=== PATIENT | female | born 1935 | race Caucasian/White ===

== ENCOUNTER 2016-03-01 14:37 | Emergency (ER) | payer MEDICARE ==
[~2016-03-01] VITALS: Ht 172.7 cm; Wt 102.1 kg
[2016-03-01 15:35] LABS: BASO % 0 % (0-3); EOS % 1 % (0-3); HEMOGLOBIN 16.5 g/dL (12.0-15.5); LYMPH # 1.6 x10^3/uL (1.0-4.8); LYMPH % 16 % (24-48); MEAN CORPUSCULAR HEMOGLOBIN 30 pg (25-35); MEAN CORPUSCULAR HGB CONC 33 g/dL (31-37); MEAN CORPUSCULAR VOLUME 91 fL (79-100); MONO % 7 % (0-9); NEUT % 76 % (31-73); PLATELET COUNT 214 x10^3/uL (140-400); RED CELL DISTRIBUTION WIDTH 14.7 % (11.5-14.5)
--- NOTE | 2016-03-01 15:36 | PHYS DOC ---
Adult General Chief Complaint Chief Complaint: BLOOD IN URINE HPI HPI This is a 80-year-old female with significant history of diabetes only presenting with approximately 1 week of intermittent left flank pain as well as intermittent gross hematuria. She denies any trauma to the flank area. She denies any dysuria with her symptoms. She states only movement brings her left flank pain on reach does not have any pain at rest. Currently at rest, she states she has no pain. She denies any history of renal disease. Patient states she did not see any blood in her urine today but has had multiple episodes within the last week and was worried because her left flank pain had worsened today. Review of Systems Review of Systems Constitutional: Denies fever or chills [] Eyes: Denies change in visual acuity, redness, or eye pain [] HENT: Denies nasal congestion or sore throat [] Respiratory: Denies cough or shortness of breath [] Cardiovascular: No additional information not addressed in HPI [] GI: Denies abdominal pain, nausea, vomiting, bloody stools or diarrhea [] : Denies dysuria, has hematuria [] Musculoskeletal: Has back pain, denies joint pain [] Integument: Denies rash or skin lesions [] Neurologic: Denies headache, focal weakness or sensory changes [] Endocrine: Denies polyuria or polydipsia [] Current Medications Current Medications Current Medications Medications (Trade) Dose Ordered Sig/Glenn Start Time Stop Time Status Last Admin Dose Admin Ceftriaxone Sodium (Rocephin 1gm Ivpb For Omni) 50 ml @ 100 mls/hr 1X ONCE 03/01/16 16:30 03/01/16 16:59 DC 03/01/16 16:28 100 MLS/HR Allergies Allergies Allergies Coded Allergies Type Severity Reaction Last Updated Verified No Known Drug Allergies 03/01/16 No Physical Exam Physical Exam Constitutional: Well developed, well nourished, no acute distress, non-toxic appearance. [] HENT: Normocephalic, atraumatic, bilateral external ears normal, oropharynx moist, no oral exudates, nose normal. [] Eyes: PERRLA, EOMI, conjunctiva normal, no discharge. [] Neck: Normal range of motion, no tenderness, supple, no stridor. [] Cardiovascular:Heart rate regular rhythm, no murmur [] Lungs & Thorax: Bilateral breath sounds clear to auscultation [] Abdomen: Bowel sounds normal, soft, no tenderness, no masses, no pulsatile masses. [] Skin: Warm, dry, no erythema, no rash. [] Back: No tenderness, no CVA tenderness. [] Extremities: No tenderness, no cyanosis, no clubbing, ROM intact, no edema. [] Neurologic: Alert and oriented X 3, normal motor function, normal sensory function, no focal deficits noted. [] Psychologic: Affect normal, judgement normal, mood normal. [] Current Patient Data Vital Signs Vital Signs Date Time Temp Pulse Resp B/P Pulse Ox O2 Delivery O2 Flow Rate FiO2 03/01/16 17:44 78 210/90 95 Room Air 03/01/16 15:05 98.2 20 98.2 Lab Values Laboratory Tests Test 03/01/16 15:10 03/01/16 16:42 03/01/16 17:10 03/01/16 17:20 White Blood Count 10.0x10^3/uL (4.0-11.0) Red Blood Count 5.50x10^6/uL (3.50-5.40) H Hemoglobin 16.5g/dL (12.0-15.5) H Hematocrit 50.0% (36.0-47.0) H Mean Corpuscular Volume 91fL (79-100) Mean Corpuscular Hemoglobin 30pg (25-35) Mean Corpuscular Hemoglobin Concent 33g/dL (31-37) Red Cell Distribution Width 14.7% (11.5-14.5) H Platelet Count 214x10^3/uL (140-400) Neutrophils (%) (Auto) 76% (31-73) H Lymphocytes (%) (Auto) 16% (24-48) L Monocytes (%) (Auto) 7% (0-9) Eosinophils (%) (Auto) 1% (0-3) Basophils (%) (Auto) 0% (0-3) Neutrophils # (Auto) 7.5x10^3uL (1.8-7.7) Lymphocytes # (Auto) 1.6x10^3/uL (1.0-4.8) Monocytes # (Auto) 0.7x10^3/uL (0.0-1.1) Eosinophils # (Auto) 0.1x10^3/uL (0.0-0.7) Basophils # (Auto) 0.0x10^3/uL (0.0-0.2) Glucose (Fingerstick) 93mg/dL (70-99) Urine Color Yellow Urine Clarity Clear Urine pH 6.0 Urine Specific [place] 1.020 Urine Protein Negativemg/dL (NEG-TRACE) Urine Glucose (UA) Negativemg/dL (NEG) Urine Ketones (Stick) Negativemg/dL (NEG) Urine Blood Trace (NEG) Urine Nitrite Positive (NEG) Urine Bilirubin Negative (NEG) Urine Urobilinogen Dipstick 0.2mg/dL (0.2 mg/dL) Urine Leukocyte Esterase Small (NEG) Urine RBC Occ/HPF (0-2) Urine WBC 5-10/HPF (0-4) Urine Squamous Epithelial Cells Occ/LPF Urine Bacteria Many/HPF (0-FEW) Urine Mucus Mod/LPF Sodium Level 142mmol/L (136-145) Potassium Level 4.0mmol/L (3.5-5.1) Chloride Level 105mmol/L (98-107) Carbon Dioxide Level 30mmol/L (21-32) Anion Gap 7 (6-14) Blood Urea Nitrogen 27mg/dL (7-20) H Creatinine 0.8mg/dL (0.6-1.0) Estimated GFR (Cockcroft-Gault) 69.2 Glucose Level 81mg/dL (70-99) Calcium Level 9.2mg/dL (8.5-10.1) Laboratory Tests 03/01/16 15:10 Laboratory Tests 03/01/16 17:20 EKG EKG [] Radiology/Procedures Radiology/Procedures CT of the abdomen/pelvis without contrast demonstrated the following: Noncontrast scans were obtained through the urinary tract utilizing the renal stone protocol. This is a limited study for evaluation of the possibility of urinary tract calculi. There is patient motion artifact on the scans through the kidneys degrading image quality. There is bilateral renal cortical scarring. There are are mild streaky perinephric densities compatible with inflammation and/or scarring. No renal calculi are identified. The renal collecting systems and ureters are not dilated. No ureteral calculus is evident. No bladder abnormality is detected. There is moderate linear atelectasis and/or scarring in the lung bases. Coronary artery calcifications are evident. The unopacified liver is unremarkable. Radiopaque gallstones are present. The pancreas is unremarkable. Numerous calcified splenic granulomata are present. The spleen is of normal size. Aortoiliac calcific plaquing is present without evidence of aneurysm. No abdominal or pelvic adenopathy is seen. The bowel loops are not dilated. No free fluid or free air is evident in the abdomen or pelvis. Moderate multilevel degenerative changes are present in the spine. Course & Med Decision Making Course & Med Decision Making Pertinent Labs and Imaging studies reviewed. (See chart for details) This 80-year-old female with mild left flank pain and multiple episodes of hematuria will obtain urinalysis and blood work to rule out any infection or other source of her hematuria and flank pain. I will check her renal function. I 'll also obtain a noncontrast CT of her abdomen and pelvis to rule out any acute kidney pathology. The likely differential is infection versus stone although I believe stone is much less likely due to the fact that her pain is well-controlled at rest her symptoms. Her symptoms are likely related to a pyelonephritis for which she will be treated with antibiotics and close follow- up with her primary doctor if that is the case. CT of her abdomen and pelvis without IV contrast demonstrated bilateral perinephric stranding which is likely related to her symptoms. I would like to preempt probably treat the patient as having pyelonephritis. A dose of IV Rocephin was administered in the department. I will be discharging the patient with a course of Levaquin for the next 5 days. I counseled her that she is to be followed in the next several days with her primary doctor and to return to the ER if she develops any worsening pain, nausea, vomiting, fever. At this time she has no fever or elevated white count. Her pain was easily controlled. Her renal function is normal. I do not see an indication to hospitalize her for this and believe she will be safe to try a course of oral antibiotics for her symptoms. She was discharged without incident. Dragon Disclaimer Dragon Disclaimer This electronic medical record was generated, in whole or in part, using a voice recognition dictation system. Departure Departure Impression: Primary Impression: Pyelonephritis Additional Impression: UTI (urinary tract infection) Disposition: 01 HOME, SELF-CARE Condition: STABLE Referrals: NICHOLE TORRES MD (PCP) Patient Instructions: Pyelonephritis, Adult, [id number] Additional Instructions: Please follow up with your primary doctor in the next 2-3 days for your ongoing infection. Take your antibiotic as prescribed. Return to the ER if you are unable to tolerate your medication or develop any new symptoms such as worsening pain or fever. Scripts Levofloxacin (Levaquin)750 Mg Tablet1 Tab PO DAILY #5 TAB Prov:CAPO DC DO 03/01/16 Problem Qualifiers CAPO DC DO Mar 01, 2016 15:36
--- NOTE | 2016-03-01 16:06 | RAD ---
CT of the abdomen and pelvis without contrast, 03/01/2016: History: Worsening left flank pain, gross hematuria Noncontrast scans were obtained through the urinary tract utilizing the renal stone protocol. This is a limited study for evaluation of the possibility of urinary tract calculi. There is patient motion artifact on the scans through the kidneys degrading image quality. There is bilateral renal cortical scarring. There are are mild streaky perinephric densities compatible with inflammation and/or scarring. No renal calculi are identified. The renal collecting systems and ureters are not dilated. No ureteral calculus is evident. No bladder abnormality is detected. There is moderate linear atelectasis and/or scarring in the lung bases. Coronary artery calcifications are evident. The unopacified liver is unremarkable. Radiopaque gallstones are present. The pancreas is unremarkable. Numerous calcified splenic granulomata are present. The spleen is of normal size. Aortoiliac calcific plaquing is present without evidence of aneurysm. No abdominal or pelvic adenopathy is seen. The bowel loops are not dilated. No free fluid or free air is evident in the abdomen or pelvis. Moderate multilevel degenerative changes are present in the spine. IMPRESSION: 1. No urinary tract calculi are identified. 2. Mild bilateral perinephric inflammation and/or scarring. 3. Cholelithiasis PQRS Compliance Statement: One or more of the following individualized dose reduction techniques were utilized for this examination: 1. Automated exposure control 2. Adjustment of the mA and/or kV according to patient size 3. Use of iterative reconstruction technique
[2016-03-01] MEDS ORDERED: CEFTRIAXONE 1GM IVPB FOR OMNI 50 ML IV ONE (16:30)
[2016-03-01 17:25] LABS: BILIRUBIN,URINE NEGATIVE (NEG); GLUCOSE,URINE NEGATIVE (NEG); NITRITE,URINE POSITIVE (NEG); PROTEIN,URINE NEGATIVE (NEG-TRACE); UROBILINOGEN,URINE 0.2 mg/dL (0.2 mg/dL)
[2016-03-01 17:40] LABS: CALCIUM 9.2 mg/dL (8.5-10.1); CREATININE 0.8 mg/dL (0.6-1.0); GFR 69.2
[2016-03-01 17:44] VITALS: BP 210/90
[2016-03-01 18:00] LABS: BACTERIA,URINE MANY /HPF (0-FEW); RBC,URINE OCC /HPF (0-2); SQUAMOUS EPITHELIAL CELL,UR OCC /LPF
[2016-03-01] MEDS ORDERED: LEVO750T31 PO (18:12)
== END 2016-03-01 18:24 | disposition home or self-care (01) ==
LOC: ER 14:37
DX: N12 Tubulo-interstitial nephritis, not specified as acute or chronic (principal); N39.0 Urinary tract infection, site not specified; E11.9 Type 2 diabetes mellitus without complications
CPT/HCPCS: 36415; 74176; 80048; 81001; 82947; 85027; 96365; 99285; J0690; 87086

== ENCOUNTER 2016-03-20 12:40 | Emergency (ER) | payer MEDICARE ==
[~2016-03-20] VITALS: Ht 172.7 cm; Wt 113.4 kg
[~2016-03-20 12:40] MED LIST: INSU100V13 SQ; LEVO750T31 PO
[2016-03-20 13:47] VITALS: BP 181/82
[2016-03-20 14:16] LABS: BASO # 0.1 x10^3/uL (0.0-0.2); BASO % 1 % (0-3); EOS % 1 % (0-3); HEMATOCRIT 49.7 % (36.0-47.0); HEMOGLOBIN 16.4 g/dL (12.0-15.5); LYMPH # 1.5 x10^3/uL (1.0-4.8); LYMPH % 14 % (24-48); MEAN CORPUSCULAR HEMOGLOBIN 30 pg (25-35); MEAN CORPUSCULAR HGB CONC 33 g/dL (31-37); MEAN CORPUSCULAR VOLUME 90 fL (79-100); MONO % 8 % (0-9); NEUT % 76 % (31-73); PLATELET COUNT 201 x10^3/uL (140-400); RED BLOOD COUNT 5.52 x10^6/uL (3.50-5.40); RED CELL DISTRIBUTION WIDTH 14.6 % (11.5-14.5); WHITE BLOOD COUNT 10.1 x10^3/uL (4.0-11.0)
[2016-03-20 14:36] LABS: CALCIUM 9.4 mg/dL (8.5-10.1); CREATININE 0.7 mg/dL (0.6-1.0); GFR 80.7; POTASSIUM 3.9 mmol/L (3.5-5.1)
[2016-03-20 14:42] LABS: ALBUMIN 3.1 g/dL (3.4-5.0); DIRECT BILIRUBIN 0.1 mg/dL (0.0-0.2); TOTAL BILIRUBIN 0.7 mg/dL (0.2-1.0); TOTAL PROTEIN 7.9 g/dL (6.4-8.2)
[2016-03-20 14:53] LABS: BILIRUBIN,URINE NEGATIVE (NEG); GLUCOSE,URINE 100 mg/dL (NEG); NITRITE,URINE NEGATIVE (NEG); PH,URINE 5.5; PROTEIN,URINE 30 mg/dL (NEG-TRACE); UROBILINOGEN,URINE 0.2 mg/dL (0.2 mg/dL)
[2016-03-20 15:19] LABS: BACTERIA,URINE FEW /HPF (0-FEW); SQUAMOUS EPITHELIAL CELL,UR FEW /LPF; WBC,URINE >40 /HPF (0-4)
--- NOTE | 2016-03-20 15:29 | PHYS DOC ---
Past Medical History Past Medical History: Diabetes-Type I, Hypertension, Other Additional Past Medical Histor: kidney infection Past Surgical History: , Hysterectomy, Other Additional Past Surgical Histo: "KNOT IN MY INTESTINE REMOVED" Alcohol Use: None Drug Use: None Adult General Chief Complaint Chief Complaint: ABDOMINAL PAIN HPI HPI Patient is a 80 year old female recently seen and treated for urinary tract infection and left flank pain who presents for urinary frequency and return of left flank pain. She is concerned she has urinary tract infection again. States her pain is in her left low back and intermittently radiates through her lateral left leg when she twists or moves. Pain is achy, intermittent. She denies mid or upper back pain. She denies injury, saddle anesthesia, bowel or bladder dysfunction, numbness, tingling, weakness. She denies fever or chills, nausea or vomiting, abdominal pain, diarrhea, constipation. Review of Systems Review of Systems Constitutional: Denies fever or chills [] Eyes: Denies change in visual acuity, redness, or eye pain [] HENT: Denies nasal congestion or sore throat [] Respiratory: Denies cough or shortness of breath [] Cardiovascular: No additional information not addressed in HPI [] GI: Denies abdominal pain, nausea, vomiting, bloody stools or diarrhea [] : Denies hematuria [] Musculoskeletal: Denies joint pain [] Integument: Denies rash or skin lesions [] Neurologic: Denies headache, focal weakness or sensory changes [] Endocrine: Denies polyuria or polydipsia [] Allergies Allergies Allergies Coded Allergies Type Severity Reaction Last Updated Verified No Known Drug Allergies 03/01/16 No Physical Exam Physical Exam Constitutional: Well developed, well nourished, no acute distress, non-toxic appearance. [] HENT: Normocephalic, atraumatic, bilateral external ears normal, oropharynx moist, nose normal. [] Eyes: PERRLA, EOMI. [] Neck: Normal range of motion, supple. [] Cardiovascular:Heart rate regular rhythm [] Lungs & Thorax: Bilateral breath sounds clear to auscultation [] Abdomen: Bowel sounds normal, soft, no tenderness. [] Skin: Warm, dry, no erythema, no rash. [] Back: No midline spinal tenderness, no CVA tenderness. Has mild right lumbar paraspinal tenderness with no visual or palpable abnormality. Negative straight leg raise [] Extremities: No tenderness, ROM intact, no edema, ambulatory with a steady gait. [] Neurologic: Alert and oriented X 3, normal motor function, normal sensory function, no focal deficits noted. [] Psychologic: Affect normal, judgement normal, mood normal. [] Current Patient Data Vital Signs Vital Signs Date Time Temp Pulse Resp B/P Pulse Ox O2 Delivery O2 Flow Rate FiO2 03/20/16 13:47 88 20 181/82 96 03/20/16 13:27 98.1 Room Air 98.1 Lab Values Laboratory Tests Test 03/20/16 13:40 03/20/16 14:38 White Blood Count 10.1x10^3/uL (4.0-11.0) Red Blood Count 5.52x10^6/uL (3.50-5.40) H Hemoglobin 16.4g/dL (12.0-15.5) H Hematocrit 49.7% (36.0-47.0) H Mean Corpuscular Volume 90fL (79-100) Mean Corpuscular Hemoglobin 30pg (25-35) Mean Corpuscular Hemoglobin Concent 33g/dL (31-37) Red Cell Distribution Width 14.6% (11.5-14.5) H Platelet Count 201x10^3/uL (140-400) Neutrophils (%) (Auto) 76% (31-73) H Lymphocytes (%) (Auto) 14% (24-48) L Monocytes (%) (Auto) 8% (0-9) Eosinophils (%) (Auto) 1% (0-3) Basophils (%) (Auto) 1% (0-3) Neutrophils # (Auto) 7.7x10^3uL (1.8-7.7) Lymphocytes # (Auto) 1.5x10^3/uL (1.0-4.8) Monocytes # (Auto) 0.8x10^3/uL (0.0-1.1) Eosinophils # (Auto) 0.1x10^3/uL (0.0-0.7) Basophils # (Auto) 0.1x10^3/uL (0.0-0.2) Sodium Level 144mmol/L (136-145) Potassium Level 3.9mmol/L (3.5-5.1) Chloride Level 104mmol/L (98-107) Carbon Dioxide Level 29mmol/L (21-32) Anion Gap 11 (6-14) Blood Urea Nitrogen 26mg/dL (7-20) H Creatinine 0.7mg/dL (0.6-1.0) Estimated GFR (Cockcroft-Gault) 80.7 Glucose Level 134mg/dL (70-99) H Calcium Level 9.4mg/dL (8.5-10.1) Total Bilirubin 0.7mg/dL (0.2-1.0) Direct Bilirubin 0.1mg/dL (0.0-0.2) Aspartate Amino Transferase (AST) 13U/L (15-37) L Alanine Aminotransferase (ALT) 15U/L (14-59) Alkaline Phosphatase 110U/L (46-116) Total Protein 7.9g/dL (6.4-8.2) Albumin 3.1g/dL (3.4-5.0) L Lipase 82U/L (73-393) Urine Collection Type Unknown Urine Color Dk yellow Urine Clarity Clear Urine pH 5.5 Urine Specific [place] 1.025 Urine Protein 30mg/dL (NEG-TRACE) Urine Glucose (UA) 100mg/dL (NEG) Urine Ketones (Stick) Negativemg/dL (NEG) Urine Blood Large (NEG) Urine Nitrite Negative (NEG) Urine Bilirubin Negative (NEG) Urine Urobilinogen Dipstick 0.2mg/dL (0.2 mg/dL) Urine Leukocyte Esterase Large (NEG) Urine RBC 6-10/HPF (0-2) Urine WBC >40/HPF (0-4) Urine Squamous Epithelial Cells Few/LPF Urine Bacteria Few/HPF (0-FEW) Urine Mucus Marked/LPF Laboratory Tests 03/20/16 13:40 Laboratory Tests 03/20/16 13:40 Course & Med Decision Making Course & Med Decision Making Pertinent Labs and Imaging studies reviewed. (See chart for details) Workup is remarkable for cystitis with hematuria. Discussed my concern of musculoskeletal low back pain as cause of other symptoms. Encouraged her to follow-up with her primary care doctor for further testing and urology clinic for recurrent cystitis with hematuria. Return precautions given. She and understand and agree with plan. Dragon Disclaimer Dragon Disclaimer This electronic medical record was generated, in whole or in part, using a voice recognition dictation system. Departure Departure Impression: Primary Impression: UTI (urinary tract infection) Disposition: 01 HOME, SELF-CARE Condition: STABLE Referrals: NICHOLE TORRES MD (PCP) RAPHAEL GARCIA DO Patient Instructions: Urinary Tract Infection, [id number] Additional Instructions: Take Bactrim for urinary tract infection. Follow-up with your primary care doctor within one week. Follow-up with urology clinic also. Please call for appointment. Return for any concerns. Scripts Sulfamethoxazole/Trimethoprim (Bactrim Ds Tablet)1 Each Tablet1 Tab PO BID #14 TAB Prov:Radha MCKEE MD 03/20/16 Problem Qualifiers Primary Impression: UTI (urinary tract infection) Urinary tract infection type: acute cystitis Hematuria presence: with hematuria Qualified Code: N30.01 - Acute cystitis with hematuria Radha MCKEE MD Mar 20, 2016 15:29
[2016-03-20] MEDS ORDERED: SULF1TAB24 PO (15:38)
== END 2016-03-20 15:45 | disposition home or self-care (01) ==
LOC: ER 12:40
DX: N30.01 Acute cystitis with hematuria (principal); E10.9 Type 1 diabetes mellitus without complications; I10 Essential (primary) hypertension; Z90.710 Acquired absence of both cervix and uterus
CPT/HCPCS: 36415; 51701; 80048; 80076; 81001; 83690; 85027; 87086; 99284-25

== ENCOUNTER 2016-03-24 14:01 | Emergency (ER) | payer MEDICARE ==
[~2016-03-24 14:01] MED LIST changes: +SULF1TAB24 PO
[2016-03-24 15:36] LABS: BASO # 0.1 x10^3/uL (0.0-0.2); BASO % 1 % (0-3); EOS % 1 % (0-3); LYMPH # 1.5 x10^3/uL (1.0-4.8); LYMPH % 15 % (24-48); MEAN CORPUSCULAR HEMOGLOBIN 30 pg (25-35); MEAN CORPUSCULAR HGB CONC 33 g/dL (31-37); MEAN CORPUSCULAR VOLUME 91 fL (79-100); MONO % 7 % (0-9); NEUT % 76 % (31-73); PLATELET COUNT 216 x10^3/uL (140-400); RED BLOOD COUNT 5.37 x10^6/uL (3.50-5.40); RED CELL DISTRIBUTION WIDTH 14.7 % (11.5-14.5); WHITE BLOOD COUNT 9.9 x10^3/uL (4.0-11.0)
[2016-03-24 15:44] LABS: CALCIUM 9.2 mg/dL (8.5-10.1); CREATININE 0.9 mg/dL (0.6-1.0); GFR 60.4; POTASSIUM 4.1 mmol/L (3.5-5.1)
[2016-03-24 15:49] LABS: ALBUMIN 3.1 g/dL (3.4-5.0); ALBUMIN/GLOBULIN RATIO 0.7 (1.0-1.7); TOTAL BILIRUBIN 0.4 mg/dL (0.2-1.0); TOTAL PROTEIN 7.8 g/dL (6.4-8.2)
[2016-03-24 15:57] LABS: INR 1.1 (0.8-1.1); PROTHROMBIN TIME PATIENT 13.5 SEC (11.7-14.0)
[2016-03-24 16:08] LABS: BILIRUBIN,URINE NEGATIVE (NEG); GLUCOSE,URINE NEGATIVE (NEG); NITRITE,URINE NEGATIVE (NEG); PH,URINE 6.5; PROTEIN,URINE NEGATIVE (NEG-TRACE); UROBILINOGEN,URINE 0.2 mg/dL (0.2 mg/dL)
[2016-03-24 16:20] LABS: BACTERIA,URINE FEW /HPF (0-FEW); SQUAMOUS EPITHELIAL CELL,UR OCC /LPF
[2016-03-24] MEDS ORDERED: SULF1TAB24 PO (16:39)
--- NOTE | 2016-03-24 16:40 | PHYS DOC ---
Past Medical History Past Medical History: Diabetes-Type I, Hypertension, Other Additional Past Medical Histor: kidney infection Past Surgical History: , Hysterectomy, Other Additional Past Surgical Histo: "KNOT IN MY INTESTINE REMOVED" Alcohol Use: None Drug Use: None Adult General Chief Complaint Chief Complaint: BLOOD IN URINE HPI HPI Patient is a 80 year old female who presents to the ER today secondary to bleeding from her perineal area. Patient reported that she noticed bleeding earlier today in the morning. Patient has a history of urinary tract infections and reports that she's been in the ER multiple times for this and has gotten antibiotics multiple times for urinary tract infection. Patient also has a history of diabetes. Patient has no history of hypertension, liver problems, coronary disease, strokes, lung problems. Patient has had a in the past. Patient had a total abdominal hysterectomy secondary to abnormal cells on a biopsy and concern for cancer. Patient is not allergic to any medications. Patient does not smoke drink or do any drugs. Patient denies any fevers shaking chills nausea vomiting diarrhea cough URI symptoms. Patient has any chest pain or shortness of breath. Patient has any abdominal pain. Patient has a dysuria frequency or urgency however she reports she does feel a sensation of burning after she finishes urinating. Patient reports this morningsmall amount of blood on her sanitary pad. Patient reports that she noticed some bleeding on the toilet paper after she picked herself going to the bathroom. Patient denies any melena or bright red blood per rectum. Patient has any dizziness or any other symptomatology at this time. Patient's physical exam was significant for a small draining abscess to her left labia near the perineal fold. It was tender to palpation with active bleeding and a small amount of purulent drainage. There was no fluctuance or further abscesses. I was able to be appreciated. Patient had no evidence of vaginal bleeding. A Gibbs catheter was placed and was sent to assess her urine for any further infection. Patient had brown stool. Not tested for blood secondary to contamination from the abscess site. Patient's last in the ER were all unremarkable. Patient normal CBC and CMP. Patient's UA did show some blood which was likely secondary to the catheterization itself. There were no white cells. Patient presents to the ER today with blood noted in the perineal area. This is most likely secondary to a abscess that has been already self drained. Patient will be sent home with a prescription with Bactrim and to follow-up with her doctor for further evaluation of her abscess. Review of Systems Review of Systems Constitutional: Denies fever or chills [] Eyes: Denies change in visual acuity, redness, or eye pain [] All other review systems are negative except as documented in the history of present illness portion. Allergies Allergies Allergies Coded Allergies Type Severity Reaction Last Updated Verified No Known Drug Allergies 03/01/16 No Physical Exam Physical Exam Constitutional: Well developed, well nourished, no acute distress, non-toxic appearance. [] HENT: Normocephalic, atraumatic, bilateral external ears normal, oropharynx moist, no oral exudates, nose normal. [] Eyes: PERRLA, EOMI, conjunctiva normal, no discharge. [] Neck: Normal range of motion, no tenderness, supple, no stridor. [] Cardiovascular:Heart rate regular rhythm, no murmur [] Lungs & Thorax: Bilateral breath sounds clear to auscultation [] Abdomen: Bowel sounds normal, soft, no tenderness, no masses, no pulsatile masses. [] Skin: Warm, dry, no erythema, no rash. [] Back: No tenderness, no CVA tenderness. [] Extremities: No tenderness, no cyanosis, no clubbing, ROM intact, no edema. [] Neurologic: Alert and oriented X 3, normal motor function, normal sensory function, no focal deficits noted. [] Psychologic: Affect normal, judgement normal, mood normal. [] Pelvic exam: Please see above Current Patient Data Vital Signs Vital Signs Date Time Temp Pulse Resp B/P Pulse Ox O2 Delivery O2 Flow Rate FiO2 03/24/16 14:59 98.3 86 20 205/89 93 Room Air 98.3 Lab Values Laboratory Tests Test 03/24/16 15:18 03/24/16 15:50 White Blood Count 9.9x10^3/uL (4.0-11.0) Red Blood Count 5.37x10^6/uL (3.50-5.40) Hemoglobin 16.0g/dL (12.0-15.5) H Hematocrit 49.0% (36.0-47.0) H Mean Corpuscular Volume 91fL (79-100) Mean Corpuscular Hemoglobin 30pg (25-35) Mean Corpuscular Hemoglobin Concent 33g/dL (31-37) Red Cell Distribution Width 14.7% (11.5-14.5) H Platelet Count 216x10^3/uL (140-400) Neutrophils (%) (Auto) 76% (31-73) H Lymphocytes (%) (Auto) 15% (24-48) L Monocytes (%) (Auto) 7% (0-9) Eosinophils (%) (Auto) 1% (0-3) Basophils (%) (Auto) 1% (0-3) Neutrophils # (Auto) 7.5x10^3uL (1.8-7.7) Lymphocytes # (Auto) 1.5x10^3/uL (1.0-4.8) Monocytes # (Auto) 0.7x10^3/uL (0.0-1.1) Eosinophils # (Auto) 0.1x10^3/uL (0.0-0.7) Basophils # (Auto) 0.1x10^3/uL (0.0-0.2) Prothrombin Time 13.5SEC (11.7-14.0) Prothrombin Time INR 1.1 (0.8-1.1) Sodium Level 143mmol/L (136-145) Potassium Level 4.1mmol/L (3.5-5.1) Chloride Level 105mmol/L (98-107) Carbon Dioxide Level 29mmol/L (21-32) Anion Gap 9 (6-14) Blood Urea Nitrogen 24mg/dL (7-20) H Creatinine 0.9mg/dL (0.6-1.0) Estimated GFR (Cockcroft-Gault) 60.4 BUN/Creatinine Ratio 27 (6-20) H Glucose Level 130mg/dL (70-99) H Calcium Level 9.2mg/dL (8.5-10.1) Total Bilirubin 0.4mg/dL (0.2-1.0) Aspartate Amino Transferase (AST) 12U/L (15-37) L Alanine Aminotransferase (ALT) 16U/L (14-59) Alkaline Phosphatase 113U/L (46-116) Total Protein 7.8g/dL (6.4-8.2) Albumin 3.1g/dL (3.4-5.0) L Albumin/Globulin Ratio 0.7 (1.0-1.7) L Urine Collection Type Unknown Urine Color Yellow Urine Clarity Clear Urine pH 6.5 Urine Specific [place] 1.015 Urine Protein Negativemg/dL (NEG-TRACE) Urine Glucose (UA) Negativemg/dL (NEG) Urine Ketones (Stick) Negativemg/dL (NEG) Urine Blood Small (NEG) Urine Nitrite Negative (NEG) Urine Bilirubin Negative (NEG) Urine Urobilinogen Dipstick 0.2mg/dL (0.2 mg/dL) Urine Leukocyte Esterase Trace (NEG) Urine RBC 11-20/HPF (0-2) Urine WBC 1-4/HPF (0-4) Urine Squamous Epithelial Cells Occ/LPF Urine Bacteria Few/HPF (0-FEW) Urine Mucus Slight/LPF Laboratory Tests 03/24/16 15:18 Laboratory Tests 03/24/16 15:18 EKG EKG [] Radiology/Procedures Radiology/Procedures [] Course & Med Decision Making Course & Med Decision Making Pertinent Labs and Imaging studies reviewed. (See chart for details) [] Dragon Disclaimer Dragon Disclaimer This electronic medical record was generated, in whole or in part, using a voice recognition dictation system. Departure Departure Impression: Primary Impression: Perineal abscess Additional Impression: Female perineal bleeding Disposition: 01 HOME, SELF-CARE Condition: IMPROVED Referrals: NICHOLE TORRES MD (PCP) Patient Instructions: Abscess Additional Instructions: Please follow up with her doctor for reevaluation of your abscess on Sunday. Scripts Sulfamethoxazole/Trimethoprim (Bactrim Ds Tablet)1 Each Tablet1 Tab PO BID 10 Days Prov:KARLY KAISER MD 03/24/16 Problem Qualifiers KARLY KAISER MD Mar 24, 2016 16:40
[2016-03-24 18:06] VITALS: BP 221/93
== END 2016-03-24 17:00 | disposition home or self-care (01) ==
LOC: ER 14:01
DX: L02.215 Cutaneous abscess of perineum (principal); E10.9 Type 1 diabetes mellitus without complications; I10 Essential (primary) hypertension; Z90.710 Acquired absence of both cervix and uterus; Z87.440 Personal history of urinary (tract) infections
CPT/HCPCS: 36415; 51701; 80053; 81001; 85027; 85610; 87086; 99284-25

== ENCOUNTER 2017-03-10 12:56 | Inpatient (IN) | payer BC, MEDICARE ==
[2017-03-10 13:41] LABS: BASO % 0 % (0-3); EOS % 0 % (0-3); HEMOGLOBIN 15.7 g/dL (12.0-15.5); LYMPH # 0.5 x10^3/uL (1.0-4.8); LYMPH % 6 % (24-48); MEAN CORPUSCULAR HEMOGLOBIN 31 pg (25-35); MEAN CORPUSCULAR HGB CONC 34 g/dL (31-37); MEAN CORPUSCULAR VOLUME 91 fL (79-100); MONO # 0.4 x10^3/uL (0.0-1.1); MONO % 5 % (0-9); NEUT # 7.4 x10^3uL (1.8-7.7); NEUT % 88 % (31-73); PLATELET COUNT 184 x10^3/uL (140-400); RED BLOOD COUNT 5.16 x10^6/uL (3.50-5.40); RED CELL DISTRIBUTION WIDTH 13.9 % (11.5-14.5); WHITE BLOOD COUNT 8.4 x10^3/uL (4.0-11.0)
[2017-03-10] MEDS: IV NORMAL SALINE 1000ML BAG 1,000 ML IV ×3 (13:43→21:08)
[2017-03-10] MEDS: ASPIRIN CHEWABLE 81 MG TABLET. PO (13:43)
[2017-03-10 14:01] LABS: ADD MAN DIFF? YES; BILIRUBIN,URINE SMALL (NEG); CLARITY,URINE CLEAR; COLOR,URINE YELLOW; GLUCOSE,URINE >=1000 mg/dL (NEG); NITRITE,URINE NEGATIVE (NEG); PROTEIN,URINE NEGATIVE (NEG-TRACE)
[2017-03-10 14:08] LABS: ANION GAP 4 (6-14); BLOOD UREA NITROGEN 26 mg/dL (7-20); BUN/CREATININE RATIO 37 (6-20); CARBON DIOXIDE 34 mmol/L (21-32); CHLORIDE 100 mmol/L (98-107); CREATININE 0.7 mg/dL (0.6-1.0); GFR 80.5; GLUCOSE 345 mg/dL (70-99); POTASSIUM 4.2 mmol/L (3.5-5.1); SODIUM 138 mmol/L (136-145)
[2017-03-10 14:15] LABS: ALBUMIN 2.6 g/dL (3.4-5.0); ALBUMIN/GLOBULIN RATIO 0.6 (1.0-1.7); ALK PHOS 82 U/L (46-116); ALT (SGPT) 8 U/L (14-59); AST (SGOT) 12 U/L (15-37); MAGNESIUM 1.7 mg/dL (1.8-2.4); TOTAL BILIRUBIN 0.8 mg/dL (0.2-1.0); TOTAL PROTEIN 6.8 g/dL (6.4-8.2)
[2017-03-10 14:18] LABS: TROPONINI < 0.017 ng/mL (0.000-0.055)
[2017-03-10 14:21] LABS: NT-PRO BNP 437 pg/mL (0-449)
[2017-03-10 14:21] LABS: CKMB MASS 0.7 ng/mL (0.0-3.6); CREATINE KINASE 21 U/L (26-192)
[2017-03-10 14:26] LABS: BACTERIA,URINE FEW /HPF (0-FEW)
[2017-03-10] MEDS ORDERED: ONDANSETRON PF 4 MG/2 ML VIAL. IV (15:00)
[2017-03-10] MEDS ORDERED: ACETAMINOPHEN 325 MG TABLET. PO (15:00)
[2017-03-10] MEDS ORDERED: DEXTROSE 50% 25 GM / 50ML DISP.SYRIN. IV (15:00)
[2017-03-10 15:16] LABS: % ATYL 1 % (0-0); % LYMPHS 3 % (24-48); % SEGS 96 % (35-66); PLT ESTIMATE ADEQUATE (ADEQUATE)
[2017-03-10] MEDS: IPRATRPIUM/ALBUTEROL 0.5/2.5MG 3 ML NEBU. NEB (15:18)
[2017-03-10 17:01] LABS: POC GLUCOSE 276 mg/dL (70-99)
[2017-03-10] MEDS: INSULIN ASPART 300 UNITS/3 ML INSULN.PEN SQ (20:59)
[2017-03-10] MEDS: INSULIN DETEMIR 300 UNITS/3 ML INSULN.PEN. SQ (21:00)
[2017-03-10 21:10] LABS: POC GLUCOSE 262 mg/dL (70-99)
[2017-03-11 05:11] LABS: ADD MAN DIFF? NO
[2017-03-11 05:31] LABS: BASO % 1 % (0-3); EOS # 0.1 x10^3/uL (0.0-0.7); EOS % 2 % (0-3); HEMATOCRIT 43.1 % (36.0-47.0); HEMOGLOBIN 14.2 g/dL (12.0-15.5); LYMPH # 0.9 x10^3/uL (1.0-4.8); LYMPH % 20 % (24-48); MEAN CORPUSCULAR HEMOGLOBIN 30 pg (25-35); MEAN CORPUSCULAR HGB CONC 33 g/dL (31-37); MEAN CORPUSCULAR VOLUME 92 fL (79-100); MONO # 0.7 x10^3/uL (0.0-1.1); MONO % 14 % (0-9); NEUT % 64 % (31-73); PLATELET COUNT 167 x10^3/uL (140-400); RED BLOOD COUNT 4.67 x10^6/uL (3.50-5.40); RED CELL DISTRIBUTION WIDTH 14.3 % (11.5-14.5); WHITE BLOOD COUNT 4.8 x10^3/uL (4.0-11.0)
[2017-03-11 05:47] LABS: ANION GAP 3 (6-14); BLOOD UREA NITROGEN 25 mg/dL (7-20); CALCIUM 8.8 mg/dL (8.5-10.1); CARBON DIOXIDE 36 mmol/L (21-32); CHLORIDE 104 mmol/L (98-107); CREATININE 0.7 mg/dL (0.6-1.0); GFR 80.5; GLUCOSE 117 mg/dL (70-99); POTASSIUM 3.6 mmol/L (3.5-5.1); SODIUM 143 mmol/L (136-145)
[2017-03-11] MEDS: IPRATRPIUM/ALBUTEROL 0.5/2.5MG 3 ML NEBU. NEB ×5 (07:21→20:07)
[2017-03-11 07:30] LABS: POC GLUCOSE 87 mg/dL (70-99)
[2017-03-11] MEDS: INSULIN ASPART 300 UNITS/3 ML INSULN.PEN SQ ×3 (08:00→16:43)
[2017-03-11 11:10] LABS: POC GLUCOSE 238 mg/dL (70-99)
[2017-03-11 16:30] LABS: POC GLUCOSE 297 mg/dL (70-99)
[2017-03-11] MEDS: FUROSEMIDE 40 MG TABLET. PO (16:36)
[2017-03-11] MEDS: LACTOBACILLUS RHAMNOSUS GG 1 CAPSULE. PO ×2 (16:38→20:31)
[2017-03-11] MEDS: INSULIN DETEMIR 300 UNITS/3 ML INSULN.PEN. SQ (20:39)
[2017-03-11 20:40] LABS: POC GLUCOSE 311 mg/dL (70-99)
[2017-03-11] MEDS ORDERED: INSULIN DETEMIR 8 UNIT SQ (21:00)
[2017-03-11] MEDS: hydrALAZINE 20 MG/ML VIAL. IVP (23:43)
[2017-03-12] MEDS: LABETALOL 20 MG/4 ML DISP.SYRIN. IVP (02:58)
[2017-03-12 07:12] LABS: POC GLUCOSE 255 mg/dL (70-99)
[2017-03-12] MEDS: IPRATRPIUM/ALBUTEROL 0.5/2.5MG 3 ML NEBU. NEB ×4 (07:47→18:32)
[2017-03-12] MEDS ORDERED: INSULIN DETEMIR 65 UNIT SQ (08:00)
[2017-03-12] MEDS: FUROSEMIDE 40 MG TABLET. PO (08:31)
[2017-03-12] MEDS: INSULIN ASPART 300 UNITS/3 ML INSULN.PEN SQ ×3 (08:32→17:55)
[2017-03-12] MEDS: LACTOBACILLUS RHAMNOSUS GG 1 CAPSULE. PO ×2 (08:37→20:39)
[2017-03-12 11:19] LABS: POC GLUCOSE 274 mg/dL (70-99)
[2017-03-12 16:34] LABS: POC GLUCOSE 313 mg/dL (70-99)
[2017-03-12] MEDS: ONDANSETRON PF 4 MG/2 ML VIAL. IV (20:40)
[2017-03-12 21:43] LABS: POC GLUCOSE 288 mg/dL (70-99)
[2017-03-13 03:29] LABS: POC GLUCOSE 390 mg/dL (70-99)
[2017-03-13] MEDS: INSULIN ASPART 300 UNITS/3 ML INSULN.PEN SQ ×5 (03:51→17:22)
[2017-03-13 07:06] LABS: POC GLUCOSE 545 mg/dL (70-99)
[2017-03-13] MEDS: IPRATRPIUM/ALBUTEROL 0.5/2.5MG 3 ML NEBU. NEB ×4 (07:54→19:52)
[2017-03-13] MEDS: LACTOBACILLUS RHAMNOSUS GG 1 CAPSULE. PO ×2 (08:59→21:33)
[2017-03-13] MEDS: FUROSEMIDE 40 MG TABLET. PO (08:59)
[2017-03-13 11:02] LABS: POC GLUCOSE 520 mg/dL (70-99)
[2017-03-13 16:20] LABS: POC GLUCOSE 262 mg/dL (70-99)
[2017-03-13] MEDS ORDERED: INSULIN ASPART 300 UNITS/3 ML INSULN.PEN SQ (16:30)
[2017-03-13] MEDS: INSULIN DETEMIR 300 UNITS/3 ML INSULN.PEN. SQ (21:38)
[2017-03-13 21:43] LABS: POC GLUCOSE 216 mg/dL (70-99)
[2017-03-14 05:25] LABS: ADD MAN DIFF? NO
[2017-03-14 05:51] LABS: ANION GAP 3 (6-14); BLOOD UREA NITROGEN 27 mg/dL (7-20); CALCIUM 8.2 mg/dL (8.5-10.1); CARBON DIOXIDE 38 mmol/L (21-32); CHLORIDE 98 mmol/L (98-107); GFR 53.3; GLUCOSE 164 mg/dL (70-99); POTASSIUM 3.2 mmol/L (3.5-5.1); SODIUM 139 mmol/L (136-145)
[2017-03-14 06:05] LABS: BASO % 0 % (0-3); EOS # 0.1 x10^3/uL (0.0-0.7); EOS % 2 % (0-3); HEMATOCRIT 43.3 % (36.0-47.0); HEMOGLOBIN 14.3 g/dL (12.0-15.5); LYMPH # 1.9 x10^3/uL (1.0-4.8); LYMPH % 23 % (24-48); MEAN CORPUSCULAR HEMOGLOBIN 30 pg (25-35); MEAN CORPUSCULAR HGB CONC 33 g/dL (31-37); MEAN CORPUSCULAR VOLUME 91 fL (79-100); MONO % 11 % (0-9); NEUT # 5.6 x10^3uL (1.8-7.7); NEUT % 65 % (31-73); PLATELET COUNT 186 x10^3/uL (140-400); RED BLOOD COUNT 4.77 x10^6/uL (3.50-5.40); RED CELL DISTRIBUTION WIDTH 14.6 % (11.5-14.5); WHITE BLOOD COUNT 8.6 x10^3/uL (4.0-11.0)
[2017-03-14 06:55] LABS: POC GLUCOSE 102 mg/dL (70-99)
[2017-03-14] MEDS: INSULIN ASPART 300 UNITS/3 ML INSULN.PEN SQ ×6 (07:30→17:26)
[2017-03-14] MEDS: IPRATRPIUM/ALBUTEROL 0.5/2.5MG 3 ML NEBU. NEB ×4 (07:32→19:54)
[2017-03-14] MEDS: LACTOBACILLUS RHAMNOSUS GG 1 CAPSULE. PO ×2 (08:08→21:41)
[2017-03-14] MEDS: FUROSEMIDE 40 MG TABLET. PO (08:09)
[2017-03-14 11:16] LABS: POC GLUCOSE 79 mg/dL (70-99)
[2017-03-14 16:28] LABS: POC GLUCOSE 170 mg/dL (70-99)
[2017-03-14] MEDS: POTASSIUM CHLORIDE 20 MEQ TABLET.ER. PO ×2 (17:15→17:18)
[2017-03-14] MEDS: LISINOPRIL 20 MG TABLET PO (17:15)
[2017-03-14] MEDS: INSULIN DETEMIR 300 UNITS/3 ML INSULN.PEN. SQ (21:00)
[2017-03-14] MEDS ORDERED: SODIUM CHL/ALOE VERA NASAL GEL 14.1GM TUBE. NS (23:00)
[2017-03-14] MEDS: FLUTICASONE 50MCG/NASAL SPRAY 16GM BOTTLE. NS (23:03)
[2017-03-15 01:35] LABS: POC GLUCOSE 105 mg/dL (70-99)
[2017-03-15 06:08] LABS: ADD MAN DIFF? NO
[2017-03-15 06:22] LABS: BASO % 0 % (0-3); EOS # 0.1 x10^3/uL (0.0-0.7); EOS % 1 % (0-3); HEMATOCRIT 42.7 % (36.0-47.0); HEMOGLOBIN 13.8 g/dL (12.0-15.5); LYMPH # 1.4 x10^3/uL (1.0-4.8); LYMPH % 22 % (24-48); MEAN CORPUSCULAR HEMOGLOBIN 30 pg (25-35); MEAN CORPUSCULAR HGB CONC 32 g/dL (31-37); MEAN CORPUSCULAR VOLUME 92 fL (79-100); MONO # 0.9 x10^3/uL (0.0-1.1); MONO % 13 % (0-9); NEUT # 4.1 x10^3uL (1.8-7.7); NEUT % 63 % (31-73); PLATELET COUNT 160 x10^3/uL (140-400); RED BLOOD COUNT 4.66 x10^6/uL (3.50-5.40); RED CELL DISTRIBUTION WIDTH 14.8 % (11.5-14.5); WHITE BLOOD COUNT 6.5 x10^3/uL (4.0-11.0)
[2017-03-15 06:46] LABS: ANION GAP 5 (6-14); BLOOD UREA NITROGEN 27 mg/dL (7-20); CALCIUM 8.7 mg/dL (8.5-10.1); CARBON DIOXIDE 35 mmol/L (21-32); CHLORIDE 99 mmol/L (98-107); CREATININE 0.8 mg/dL (0.6-1.0); GLUCOSE 250 mg/dL (70-99); POTASSIUM 3.7 mmol/L (3.5-5.1); SODIUM 139 mmol/L (136-145)
[2017-03-15 07:20] LABS: POC GLUCOSE 306 mg/dL (70-99)
[2017-03-15] MEDS: IPRATRPIUM/ALBUTEROL 0.5/2.5MG 3 ML NEBU. NEB ×2 (07:54→11:27)
[2017-03-15] MEDS: LACTOBACILLUS RHAMNOSUS GG 1 CAPSULE. PO (09:26)
[2017-03-15] MEDS: FUROSEMIDE 40 MG TABLET. PO (09:26)
[2017-03-15] MEDS: LISINOPRIL 20 MG TABLET PO (09:26)
[2017-03-15] MEDS: FLUTICASONE 50MCG/NASAL SPRAY 16GM BOTTLE. NS (09:27)
[2017-03-15] MEDS: INSULIN ASPART 300 UNITS/3 ML INSULN.PEN SQ ×4 (09:36→14:15)
[2017-03-15 11:27] LABS: POC GLUCOSE 343 mg/dL (70-99)
== END 2017-03-15 15:00 | disposition home health service (06) | DRG 291 ==
LOC: ER 12:56 → 5 SOUTH 14:57
DX: I13.0 Hypertensive heart and chronic kidney disease with heart failure and stage 1 through stage 4 chronic kidney disease, or unspecified chronic kidney disease (principal); I50.43 Acute on chronic combined systolic (congestive) and diastolic (congestive) heart failure; E43 Unspecified severe protein-calorie malnutrition; J11.00 Influenza due to unidentified influenza virus with unspecified type of pneumonia; J96.01 Acute respiratory failure with hypoxia; N39.0 Urinary tract infection, site not specified; E11.65 Type 2 diabetes mellitus with hyperglycemia; E11.22 Type 2 diabetes mellitus with diabetic chronic kidney disease; E11.51 Type 2 diabetes mellitus with diabetic peripheral angiopathy without gangrene; B35.1 Tinea unguium; E78.5 Hyperlipidemia, unspecified; E87.6 Hypokalemia; L60.0 Ingrowing nail; L60.2 Onychogryphosis; N18.9 Chronic kidney disease, unspecified; Z79.4 Long term (current) use of insulin; Z90.710 Acquired absence of both cervix and uterus; Z68.38 Body mass index [BMI] 38.0-38.9, adult
CPT/HCPCS: 36415; 51701; 71045; 71250; 72146; 80048; 80053; 81001; 82553; 82962; 83735; 83880; 84484; 85007; 85025; 93005; 94640; 94760; 97110-GP; 97116-GP; 97162-GP; 97165-GO; 99285; 99285-25; J0360; J1815; J2405; J3490; J7030; J7620

== ENCOUNTER 2020-12-26 23:44 | Inpatient (IN) | payer MEDICARE ==
[~2020-12-26] VITALS: Ht 172.7 cm; Wt 112.2 kg
[~2020-12-26 23:44] MED LIST changes: +BENZ-8 PO; +CETI10TA16 PO; +FLUT16SP NS; +Fluconazole PO; +GUAI600T47 PO; +HUM100VI SQ; +INSU100I13 SQ; +LIDO1ADH4 TP; +LISI-130 PO; +LISI1TAB37 PO; +LISI20TA18 PO; +NYST60PO TP; +TRAM50TA PO
--- NOTE | 2020-12-27 00:03 | PHYS DOC ---
Past Medical History Past Medical History: Diabetes-Type II, Hypertension Additional Past Medical Histor: kidney infection Past Surgical History: , Hysterectomy, Other Additional Past Surgical Histo: "KNOT IN MY INTESTINE REMOVED" Smoking Status: Never Smoker Alcohol Use: None Drug Use: None General Adult EDM: Chief Complaint: ALTERED MENTAL STATUS HPI: HPI: Patient is a 85 year old female brought in by EMS from home for evaluation of generalized weakness and recurrent falls, reportedly occurring over the last several months. Apparently her falls have been increasing in frequency over the last month. She has not seen a primary care physician in quite some time, per her report. The patient was noted to be hypoxic on room air for EMS, she does not normally require supplemental oxygen, per their report. She is saturating well on supplemental nasal cannula oxygen. The patient does report coughing and shortness of breath. She denies chest pain. She reports generalized weakness. She denies numbness or tingling or focal weakness. She is chronically incontinent of urine and stool. No acute changes in this regard. She denies headache. She denies head trauma. She denies any loss of consciousness. She reportedly lives in a private residence with one of her sons. The patient has a history of diabetes, never checks her blood sugar, reportedly takes insulin as directed. She reports that she has been taking insulin for years, but she has not apparently seen a physician for this in quite some time. She does not know the name of any of her previous primary care physicians. She has bilateral lower extremity swelling and redness. She initially denied any other areas of pain or discomfort, however when she was transported to CT to have a head CT performed, she reported severe diffuse low back pain. She reported that she was very uncomfortable while lying on the CT table. She denies any recent hospitalizations. Denies recent travel history. She is unsure if she is received any vaccinations of any kind, she is unsure if she is received all the vaccinations or influenza vaccinations. Review of Systems: Review of Systems: Constitutional: She denies fever. She does report generalized fatigue and malaise. Eyes: Denies acute vision loss. HENT: Denies nasal congestion or sore throat. [] Respiratory: Ports cough and dyspnea. Cardiovascular: Denies chest pain. She reports lower extremity swelling, which is chronic. GI: She denies abdominal pain, nausea, vomiting, bowel habit changes. : Denies acute urinary symptoms. She is chronically incontinent of urine. Musculoskeletal: Ports low back pain. Integument: Lower extremity skin redness and swelling. Neurologic: She denies headache. She reports ports generalized, nonfocal weakness. Denies numbness. She denies syncope. Endocrine: Hyperglycemia. Lymphatic: Denies swollen glands. [] Psychiatric: Anxiety. [] Heart Score: C/O Chest Pain: No Risk Factors: Risk Factors: DM, Current or recent (<one month) smoker, HTN, HLP, family history of CAD, obesity. Risk Scores: Score 0 - 3: 2.5% MACE over next 6 weeks - Discharge Home Score 4 - 6: 20.3% MACE over next 6 weeks - Admit for Clinical Observation Score 7 - 10: 72.7% MACE over next 6 weeks - Early Invasive Strategies Allergies: Allergies: Allergies Coded Allergies Type Severity Reaction Last Updated Verified No Known Drug Allergies 03/01/16 No Physical Exam: PE: Constitutional: Well developed, well nourished, she is chronically ill- appearing. She is mild to moderately acutely ill-appearing. She is disheveled and relatively unkempt. HENT: Normocephalic, atraumatic, oropharynx is patent and clear. Mucous membranes are tacky. Eyes: PERRL, EOMI, conjunctiva normal, no discharge. Sclera are anicteric Neck: Normal range of motion, no tenderness, supple, no stridor. Achy yet is midline Cardiovascular:Heart rate regular rhythm, +2 radial pulses bilaterally, +2 dorsalis pedis pulses bilaterally Lungs & Thorax: Mild tachypnea is noted. Bibasilar rales are noted. No wheezing. No stridor. She speaks in full and clear sentences. Equal chest rise. Abdomen: Is obese, soft, nondistended, no tenderness. She has a large midline vertical incision, reportedly from previous . Skin: Bilateral lower extremity warmth and erythema, mostly involving the anteri or lower extremities, no circumferential erythema. No open wounds, no drainage, no bleeding. Skin in the inguinal area and under the pannus and buttocks are markedly unkempt, with large amount of stool. Her skin is quite unkempt. She has significant scaling and dry skin of her lower extremities and feet. Back: No obvious deformity Extremities: Bilateral, symmetric, lower extremity +2 pitting edema. Bilateral lower extremity warmth, erythema, bilateral lower extremity pitting edema. No calf tenderness. No foot drop is noted. Neurologic: He is awake, alert, oriented to person, she knows she is in the hospital. She is not oriented to date or time. She follows commands. No facial asymmetry is noted. 5 out of 5 motor strength all 4 extremities. Sensation is grossly intact. She is largely uncooperative with attempts at other more detailed exams. Psychiatric: She is anxious. EKG: EKG: EKG is interpreted at 0023 Rhythm is sinus Rate is 87 bpm Marked artifact No STEMI Radiology/Procedures: Radiology/Procedures: IMAGING REPORT Signed PATIENT: JOSAFAT SAAVEDRA JACCOUNT: [id number] : 1935 LOCATION: ER AGE: 85 SEX: F EXAM STATUS: REG ER ORD. PHYSICIAN: GEETHA MOY DO REASON: falls, confusion PROCEDURE: CT HEAD WO CONTRAST CT HEAD/BRAIN WO History: Falls, confusion. Comparison: None. Technique: Noncontrast CT imaging was performed of the head. Findings: No intracranial hemorrhage. No mass effect. No hydrocephalus. No evidence of acute territorial infarction. There is diffuse prominence of the ventricles and sulci. Postsurgical changes of the lenses. Otherwise unremarkable orbits. Left posterior ethmoid and sphenoid sinus opacification. Mild right ethmoid sinus opacification. The scalp and calvarium are unremarkable. Impression: 1. No acute intracranial abnormality. 2. Paranasal sinus disease greatest at the left sphenoid and posterior ethmoid air cells. ----- Exposure: One or more of the following individualized dose reduction techniques were utilized for this examination: 1. Automated exposure control 2. Adjustment of the mA and/or kV according to patient size 3. Use of iterative reconstruction technique. Electronically signed by: Allan Grant MD (12/27/2020 1:33 AM) [id number] DICTATED and SIGNED BY: ALLAN GRANT MD DATE: 12/27/20 [id number] IMAGING REPORT Signed PATIENT: JOSAFAT SAAVEDRA JACCOUNT: [id number] : 1935 LOCATION: ER AGE: 85 SEX: F EXAM STATUS: REG ER ORD. PHYSICIAN: GEETHA MOY DO REASON: fall, PT MOVED WHILE TRYING 2 SCAN NOT HOLD STILL SO HAD TO REPEAT *BEST* PROCEDURE: CT CERVICAL SPINE WO CONTRAST CT LUMBAR SPINE WO, CT CERVICAL SPINE WO, CT THORACIC SPINE WO History: Fall. Technique: Noncontrast CT was performed of the lumbar spine. Multiplanar reconstructions were performed. Comparison: CT abdomen and pelvis 01/30/2020. CT chest 03/12/2017. Findings: Cervical- There are advanced degenerative changes in the cervical spine with ankylosis of the C6-C7-T1 vertebral bodies. No acute fracture is identified in the cervical spine. The soft tissues in the visualized neck are unremarkable. Thoracic- There are flowing osteophytes throughout the thoracic spine. There is a chalkstick fracture just above the inferior endplate of the T10 vertebral body with approximately 1 cm anterior diastases however intact-appearing posterior cortex. Wedge compression fracture of the T12 vertebral body is present since January 2020. Multilevel degenerative changes in the thoracic spine. Exaggerated thoracic kyphosis. No spondylolisthesis. There is partially visualized cardiomegaly and small to moderate bilateral effusions with adjacent lower lobe consolidations. Lumbar- Wedge compression fracture in the L1 vertebral body is present since January 2020. Multilevel degenerative disc and facet disease. Degenerative changes at the spinous processes compatible with [place]'s disease. No acute lumbar spine fracture. No spondylolisthesis. Spinal soft tissues are unremarkable. Impression: 1. Acute chalkstick fracture in the T10 vertebral body with apex posterior angulation and 1 cm anterior diastases. 2. Advanced degenerative/posttraumatic changes in the cervical and thoracic spine without acute osseous abnormality. 3. Small to moderate bilateral pleural effusions with adjacent consolidations, may represent atelectasis or infection. Findings discussed with Geetha Moy at 12/27/2020 2:17 AM. FOR INTERNAL CODING PURPOSES RESULT CODE: (C) Exposure: One or more of the following individualized dose reduction techniques were utilized for this examination: 1. Automated exposure control 2. Adjustment of the mA and/or kV according to patient size 3. Use of iterative reconstruction technique. Electronically signed by: Allan Grant MD (12/27/2020 2:20 AM) [id number] DICTATED and SIGNED BY: ALLAN GRANT MD DATE: 12/27/20 [id number] Course & Med Decision Making: Course & Med Decision Making Pertinent Labs and Imaging studies reviewed. (See chart for details) She is given IV fentanyl for her back pain. Blood cultures and lactic are obtained. She is stable on her supplemental oxygen per nasal cannula. IV Lasix and topical Nitropaste are given. She is empirically given IV Rocephin and IV vancomycin. Gibbs catheter was placed. She is nitrite positive, some pyuria, s ome hematuria, moderate squamous cells but also bacteria. Rocephin should cover urinary tract infection, urine culture is pending. I spoke with the patient's son. He reports that she has been very resistant to seeking medical treatment for quite some time. He reports that the patient has been increasingly and progressively confused, with frequent memory loss issues. He denies that she has been acutely altered in her mental status or confusion today. He reports that his brother took her to her primary care physician several months ago, and the patient reportedly did not like him and refused to go back. She has refused physical therapy. She has refused most all medical services recommended to her by her physicians in the past. Her son reports that he acknowledges that it is likely time for her to transition to rehab and/or care home facility. He admits that he is not able to care for her at home, and she does not care for herself. She is her own guardian and medical decision maker. The patient reports to me that she wishes to be a full code. The patient appears to be resting much more comfortably. I have explained my recommendation for admission to the hospital. She verbalized understanding, she is comfortable with this plan. She is accepted for admission by Dr. Vieira. Bharat Disclaimer: Bharat Disclaimer: This electronic medical record was generated, in whole or in part, using a voice recognition dictation system. Departure Departure Impression: Primary Impression: Generalized weakness Additional Impressions: Multiple falls Hyperglycemia due to diabetes mellitus Respiratory failure with hypoxia Requires supplemental oxygen Congestive heart failure T10 vertebral fracture Elevated troponin level UTI (urinary tract infection) Disposition: ADMITTED INPATIENT Admitting Physician: HERNANDEZ Condition: GUARDED Referrals: UNKNOWN PCP NAME (PCP) GEETHA MOY DO Dec 27, 2020 00:03
[2020-12-27 00:45] LABS: BASO # 0.1 x10^3/uL (0.0-0.2); BASO % 1 % (0-3); EOS % 0 % (0-3); HEMATOCRIT 46.1 % (36.0-47.0); HEMOGLOBIN 14.9 g/dL (12.0-15.5); LYMPH % 11 % (24-48); MEAN CORPUSCULAR HEMOGLOBIN 31 pg (25-35); MEAN CORPUSCULAR HGB CONC 32 g/dL (31-37); MEAN CORPUSCULAR VOLUME 95 fL (79-100); MONO # 0.9 x10^3/uL (0.0-1.1); MONO % 9 % (0-9); NEUT # 7.2 x10^3/uL (1.8-7.7); NEUT % 79 % (31-73); PLATELET COUNT 175 x10^3/uL (140-400); RED BLOOD COUNT 4.86 x10^6/uL (3.50-5.40); WHITE BLOOD COUNT 9.1 x10^3/uL (4.0-11.0)
[2020-12-27 01:12] LABS: ALBUMIN 2.9 g/dL (3.4-5.0); ALBUMIN/GLOBULIN RATIO 0.7 (1.0-1.7); CALCIUM 9.1 mg/dL (8.5-10.1); CREATININE 1.5 mg/dL (0.6-1.0); GFR 33.1; MAGNESIUM 2.3 mg/dL (1.8-2.4); PHOSPHORUS 3.3 mg/dL (2.6-4.7); POTASSIUM 4.7 mmol/L (3.5-5.1); TOTAL BILIRUBIN 0.9 mg/dL (0.2-1.0)
[2020-12-27 01:26] LABS: INFLUENZA A PATIENT NEGATIVE (NEGATIVE); INFLUENZA B PATIENT NEGATIVE (NEGATIVE)
--- NOTE | 2020-12-27 01:36 | RAD ---
CT HEAD/BRAIN WO History: Falls, confusion. Comparison: None. Technique: Noncontrast CT imaging was performed of the head. Findings: No intracranial hemorrhage. No mass effect. No hydrocephalus. No evidence of acute territorial infar ction. There is diffuse prominence of the ventricles and sulci. Postsurgical changes of the lenses. Otherwise unremarkable orbits. Left posterior ethmoid and sphenoi d sinus opacification. Mild right ethmoid sinus opacification. The scalp and calvarium are unremarkab le. Impression: 1. No acute intracranial abnormality. 2. Paranasal sinus disease greatest at the left sphenoid and posterior ethmoid air cells. ----- Exposure: One or more of the following individualized dose reduction techniques were utilized for thi s examination: 1. Automated exposure control 2. Adjustment of the mA and/or kV according to patient size 3. Use of iterative reconstruction technique. Electronically signed by: Allan Monteiro MD (12/27/2020 1:33 AM) [id number]
[2020-12-27] MEDS ORDERED: VANCOMYCIN 1GM IVPB FOR OMNI 250 ML IV ONE (01:45)
[2020-12-27] MEDS ORDERED: fentaNYL PF VIAL 100 MCG/2 ML VIAL IVP ONE (02:00)
[2020-12-27] MEDS ORDERED: NITROGLYCERIN OINT 1 GM PACKET. TP ONE (02:00)
[2020-12-27] MEDS ORDERED: cefTRIAXone IV Push 1 GM VIAL. IVP ONE (02:00)
--- NOTE | 2020-12-27 02:23 | RAD ---
CT LUMBAR SPINE WO, CT CERVICAL SPINE WO, CT THORACIC SPINE WO History: Fall. Technique: Noncontrast CT was performed of the lumbar spine. Multiplanar reconstructions were perform ed. Comparison: CT abdomen and pelvis 01/30/2020. CT chest 03/12/2017. Findings: Cervical- There are advanced degenerative changes in the cervical spine with ankylosis of the C6-C7-T1 vertebra l bodies. No acute fracture is identified in the cervical spine. The soft tissues in the visualized neck are unremarkable. Thoracic- There are flowing osteophytes throughout the thoracic spine. There is a chalkstick fracture just abov e the inferior endplate of the T10 vertebral body with approximately 1 cm anterior diastases however intact-appearing posterior cortex. Wedge compression fracture of the T12 vertebral body is present si nce January 2020. Multilevel degenerative changes in the thoracic spine. Exaggerated thoracic kyphos is. No spondylolisthesis. There is partially visualized cardiomegaly and small to moderate bilateral effusions with adjacent lo wer lobe consolidations. Lumbar- Wedge compression fracture in the L1 vertebral body is present since January 2020. Multilevel degene rative disc and facet disease. Degenerative changes at the spinous processes compatible with [place]' s disease. No acute lumbar spine fracture. No spondylolisthesis. Spinal soft tissues are unremarkable. Impression: 1. Acute chalkstick fracture in the T10 vertebral body with apex posterior angulation and 1 cm anter ior diastases. 2. Advanced degenerative/posttraumatic changes in the cervical and thoracic spine without acute osse ous abnormality. 3. Small to moderate bilateral pleural effusions with adjacent consolidations, may represent atelect asis or infection. Findings discussed with Geetha Mendoza at 12/27/2020 2:17 AM. FOR INTERNAL CODING PURPOSES RESULT CODE: (C) Exposure: One or more of the following individualized dose reduction techniques were utilized for thi s examination: 1. Automated exposure control 2. Adjustment of the mA and/or kV according to patient size 3. Use of iterative reconstruction technique. Electronically signed by: Allan Monteiro MD (12/27/2020 2:20 AM) [id number]
[2020-12-27] MEDS ORDERED: VANCOMYCIN 2 GM in IV NORMAL SALINE 500ML BAG 500 ML IV ONE (02:30)
[2020-12-27 02:47] LABS: BILIRUBIN,URINE NEGATIVE (NEG); CLARITY,URINE CLOUDY; COLOR,URINE YELLOW; NITRITE,URINE POSITIVE (NEG); PROTEIN,URINE NEGATIVE (NEG-TRACE); UROBILINOGEN,URINE 0.2 mg/dL (0.2 mg/dL)
[2020-12-27 02:56] LABS: BACTERIA,URINE MANY /HPF (0-FEW); HYALINE CASTS, URINE OCCASIONAL /HPF; RBC,URINE OCC /HPF (0-2); WBC,URINE OCC /HPF (0-4); YEAST,URINE PRESENT /HPF
[2020-12-27] MEDS ORDERED: fentaNYL PF VIAL 100 MCG/2 ML VIAL IVP PRN ×2 (03:15→03:30)
[2020-12-27] MEDS ORDERED: ONDANSETRON PF 4 MG/2 ML VIAL. IVP PRN (03:15)
[2020-12-27] MEDS ORDERED: FUROSEMIDE 20 MG/2 ML VIAL. IVP ONE (03:30)
[2020-12-27] MEDS ORDERED: INSULIN REGULAR 100 UNIT/ML 3ML VIAL. IV ONE (03:30)
--- NOTE | 2020-12-27 04:43 | RAD ---
XR CHEST 1V History: Cough, hypoxia Comparison: X-ray 02/15/2018. CT thoracic spine 12/27/2020 Technique: Portable AP radiograph of the chest. Findings: The lungs are adequately inflated. There are bilateral airspace opacities greatest at the left lower lobe. Calcified left upper lung ranula. Bilateral pleural effusions. Enlarged cardiac silhouette. Pul monary vasculature is indistinct. Thoracic spine fracture better appreciated on comparison CT. Impression: 1. Bilateral pleural effusions and diffuse bilateral opacities likely represent CHF exacerbation and pulmonary edema. Superimposed infection cannot be excluded. Electronically signed by: Allan Monteiro MD (12/27/2020 4:40 AM) [id number]
[2020-12-27] MEDS: VANCOMYCIN PER PHARMACY MC PRN ×3 (05:08→15:06)
--- NOTE | 2020-12-27 05:10 | NUR ---
Pharmacy Vancomycin Dosing Note S:Consulted to monitor and dose vancomycin started 12/27/20. O:JOSAFAT SAAVEDRA is a 85 year old F with Empiric UTI . Height: 5 feet, 6 inches Weight: 120.0 kg [place] Body Weight: 59.30 Adjusted Body Weight: 83.58 Dosing Weight: Actual Other Antibiotics: CEFTRIAXONE 2MG 1X ED LABS: Last BUN: 42 Last Creatinine: 1.5 Creatinine Clearance: 37 mL/min Last WBC: 9.1 Last Procalcitonin: Tmax (past 24 hours): Microbiology: I/O: Drug Levels: Last level: on at Last dose given 12/27/20 at 0220 Vancomycin Dosing: Loading Dose: 2000 mg x1 Dosing Weight: Actual Target Trough: 10-20 A: Based on: WT AND CRCL P: 1. Begin Vancomycin 1750 mg IV q24h 2. Follow up Trough level on 12/29/20 at 0330 3. Pharmacy will continue to monitor, follow and adjust therapy as needed. PAVAN PAVON RPH, 12/27/20 0510 Signed: 12/27/20 at 0510 by PAVAN PAVON RPH PHA
[2020-12-27 05:15] VITALS: BP 122/71
--- NOTE | 2020-12-27 06:23 | NUR ---
The patient, JOSAFAT SAAVEDRA, 85 y/o, F admitted by SYEDA RICHARDSON MD, was given written information regarding hospital policies, unit procedures and contact persons. Valuables were checked and left in patient room. Pt states she hasn't been to the doctors in a while because she is unable to get out. Patient states that she fell at home on 12/26 and has had multiple recent falls. states that she only takes "long acting insulin 50 Units in the morning" and "1/2 unit at bedtime or I have an insulin reaction" patient states that the reactions in "low blood sugar". Also states that she has been out of glucose strips for at least a month so she hasn't been able to check her blood sugar. Pt lives with her two sons. Patient skin is very dry and flaky, and under the breast and pannus is reddened. Bed in low locked postion, call light in reach, bed alarm set. reminded patient to call for assistance. Will continue to monitor.
[2020-12-27 07:00] VITALS: BP 156/70
[2020-12-27] MEDS ORDERED: ANTI-COAG MONITOR BY PHARMACY. MC PRN (09:00)
[2020-12-27] MEDS ORDERED: HEPARIN for IV BOLUS 10,000 UNIT/10 ML VIAL. IV PRN (09:00)
[2020-12-27] MEDS ORDERED: FLU VACC QUAD 21-22 (6MOS+) PF 0.5 ML SYRINGE. VAX IM ONE (09:00)
[2020-12-27] MEDS ORDERED: HEPARIN for IV BOLUS 10,000 UNIT/10 ML VIAL. IV ONE (09:00)
[2020-12-27] MEDS ORDERED: HEPARIN 25,000UTS/250ML PREMIX 250 ML IV PRN (09:00)
[2020-12-27] MEDS ORDERED: PIP/TAZO PER PHARMACY MC PRN (09:15)
[2020-12-27] MEDS: LACTOBACILLUS RHAMNOSUS GG 1 CAPSULE. PO SCH ×2 (09:23→22:50)
[2020-12-27 09:25] LABS: CHOLESTEROL/HDL RATIO 2.7
[2020-12-27] MEDS ORDERED: DEXTROSE 50% 25 GM / 50ML DISP.SYRIN. IV PRN ×2 (09:30)
[2020-12-27] MEDS: INSULIN LISPRO 300 UNITS/3 ML VIAL. SQ SCH ×3 (09:47→18:01)
--- NOTE | 2020-12-27 10:14 | PDOC2 ---
OTILIA GR DIRECTOR OF PULMONARY UNIT 12/27/20 1014: CARDIAC CONSULT DATE OF CONSULT Date of Consult DATE: 12/27/20 TIME: 10:03 REASON FOR CONSULT Reason for Consult: Elevated troponin REFERRING PHYSICIAN Referring Physician: Dr. Mendoza SOURCE Source: Chart review, Patient HISTORY OF PRESENT ILLNESS HISTORY OF PRESENT ILLNESS This is an 85 yo female who presented secondary to weakness, fall, and shortness of breath. Troponin level noted to be elevated, which prompted this consult. Patient reports she had been more weak for the last week or so. Tried to get up from her chair yesterday evening and fell due to weakness in her legs. She denies hitting her head or any LOC. Denies any precipitating dizziness or lightheadedness. Does have a history of hypertension and hyperlipidemia. Reports she ran out of meds a couple of months ago. Does take scheduled insulin, but has not check her sugar in some time as she ran out of test strips. Lives at home with 2 sons. One son works and the other helps take care of her. Has a history of LE edema. Legs have been more edematous over the last month. Denies any chest pain/pressure, upper back pain, neck pain, or jaw pain. PAST MEDICAL HISTORY Cardiovascular: HTN Musculoskeletal: Osteoarthritis Endocrine: Diabetes PAST SURGICAL HISTORY Past Surgical History: Hysterectomy FAMILY HISTORY Family History: Hypertension SOCIAL HISTORY Smoke: No ALCOHOL: none Drugs: None Lives: with Family CURRENT MEDICATIONS CURRENT MEDICATIONS Current Medications Medications (Trade) Dose Ordered Sig/Glenn Route PRN Reason Start Time Stop Time Status Last Admin Dose Admin Ceftriaxone Sodium (Rocephin) 2 gm 1X ONCE IVP 12/27/20 02:00 12/27/20 02:01 DC 12/27/20 02:19 Vancomycin HCl (Vanco Per Pharmacy) 1 each PRN DAILY PRN MC SEE COMMENTS 12/27/20 01:45 12/27/20 08:22 Fentanyl Citrate (Fentanyl 2ml Vial) 50 mcg 1X ONCE IVP 12/27/20 02:00 12/27/20 02:01 DC 12/27/20 02:05 Nitroglycerin (Nitro-Bid Oint) 1 inch 1X ONCE TP 12/27/20 02:00 12/27/20 02:01 DC 12/27/20 02:06 Vancomycin HCl 2 gm/Sodium Chloride 500 ml @ 250 mls/hr 1X ONCE IV 12/27/20 02:30 12/27/20 04:29 DC 12/27/20 02:20 Furosemide (Lasix) 20 mg 1X ONCE IVP 12/27/20 03:30 12/27/20 03:31 DC 12/27/20 03:43 Insulin Human Regular (HumuLIN R VIAL) 10 unit 1X ONCE IV 12/27/20 03:30 12/27/20 03:31 DC 12/27/20 03:41 Fentanyl Citrate (Fentanyl 2ml Vial) 50 mcg PRN Q2HRS PRN IVP SEVERE PAIN 7-10 12/27/20 03:30 12/28/20 03:29 12/27/20 04:53 Lactobacillus Rhamnosus (Culturelle) 1 cap BID PO 12/27/20 09:00 12/27/20 09:23 Heparin Sodium (Porcine) (Heparin Sodium) 4,000 unit 1X ONCE IV 12/27/20 09:00 12/27/20 09:01 DC 12/27/20 09:13 Heparin Sodium/ Dextrose 250 ml @ 10 mls/hr CONT PRN IV PER PROTOCOL 12/27/20 09:00 12/27/20 09:17 Insulin Human Lispro (HumaLOG) 0-7 UNITS TIDWMEALS SQ 12/27/20 09:30 12/27/20 09:47 ALLERGIES ALLERGIES: Coded Allergies: No Known Drug Allergies (Unverified , 03/01/16) ROS Review of System 14 point ROS conducted with pertinent positives noted above in HPI PHYSICAL EXAM General: Alert, Oriented X3, Cooperative, No acute distress HEENT: Atraumatic Lungs: Other (crackles ) Heart: Regular rate Abdomen: Soft, Other (obese) Extremities: Other (LE edema) Skin: Other (dry, scaly skin. Chronic venous stasis changes) Neuro: Normal speech, Sensation intact Psych/Mental Status: Mental status NL, Mood NL VITALS/I&O VITALS/I&O: Vital Signs Date Time Temp Pulse Resp B/P (MAP) Pulse Ox O2 Delivery O2 Flow Rate FiO2 12/27/20 07:00 97.3 87 18 156/70 (98) 92 Nasal Cannula 4.0 97.3 LABS Lab: Laboratory Tests Test 12/27/20 00:30 12/27/20 00:35 12/27/20 02:38 12/27/20 04:07 White Blood Count 9.1 x10^3/uL (4.0-11.0) Red Blood Count 4.86 x10^6/uL (3.50-5.40) Hemoglobin 14.9 g/dL (12.0-15.5) Hematocrit 46.1 % (36.0-47.0) Mean Corpuscular Volume 95 fL (79-100) Mean Corpuscular Hemoglobin 31 pg (25-35) Mean Corpuscular Hemoglobin Concent 32 g/dL (31-37) Red Cell Distribution Width 16.0 % (11.5-14.5) H Platelet Count 175 x10^3/uL (140-400) Neutrophils (%) (Auto) 79 % (31-73) H Lymphocytes (%) (Auto) 11 % (24-48) L Monocytes (%) (Auto) 9 % (0-9) Eosinophils (%) (Auto) 0 % (0-3) Basophils (%) (Auto) 1 % (0-3) Neutrophils # (Auto) 7.2 x10^3/uL (1.8-7.7) Lymphocytes # (Auto) 1.0 x10^3/uL (1.0-4.8) Monocytes # (Auto) 0.9 x10^3/uL (0.0-1.1) Eosinophils # (Auto) 0.0 x10^3/uL (0.0-0.7) Basophils # (Auto) 0.1 x10^3/uL (0.0-0.2) Sodium Level 137 mmol/L (136-145) Potassium Level 4.7 mmol/L (3.5-5.1) Chloride Level 99 mmol/L (98-107) Carbon Dioxide Level 29 mmol/L (21-32) Anion Gap 9 (6-14) Blood Urea Nitrogen 42 mg/dL (7-20) H Creatinine 1.5 mg/dL (0.6-1.0) H Estimated GFR (Cockcroft-Gault) 33.1 BUN/Creatinine Ratio 28 (6-20) H Glucose Level 542 mg/dL (70-99) *H Lactic Acid Level 2.2 mmol/L (0.4-2.0) H Calcium Level 9.1 mg/dL (8.5-10.1) Phosphorus Level 3.3 mg/dL (2.6-4.7) Magnesium Level 2.3 mg/dL (1.8-2.4) Total Bilirubin 0.9 mg/dL (0.2-1.0) Aspartate Amino Transferase (AST) 37 U/L (15-37) Alanine Aminotransferase (ALT) 34 U/L (14-59) Alkaline Phosphatase 133 U/L (46-116) H Creatine Kinase 102 U/L (26-192) Troponin I High Sensitivity 5432 ng/L (4-50) H KU-Voy-C-Type Natriuretic Peptide 13805 pg/mL (0-449) H Total Protein 7.0 g/dL (6.4-8.2) Albumin 2.9 g/dL (3.4-5.0) L Albumin/Globulin Ratio 0.7 (1.0-1.7) L Triglycerides Level 118 mg/dL (0-150) Cholesterol Level 163 mg/dL (0-200) LDL Cholesterol, Calculated 78 mg/dL (0-100) VLDL Cholesterol, Calculated 24 mg/dL (0-40) Non-HDL Cholesterol Calculated 102 mg/dL (0-129) HDL Cholesterol 61 mg/dL (40-60) H Cholesterol/HDL Ratio 2.7 Influenza Type A Antigen Negative (NEGATIVE) Influenza Type B Antigen Negative (NEGATIVE) SARS-CoV-2 RNA (RUDY) Negative (Negative) SARS-CoV-2 Antigen (Rapid) Negative (NEGATIVE) Urine Collection Type Unknown Urine Color Yellow Urine Clarity Cloudy Urine pH 5.0 (<5.0-8.0) Urine Specific [place] >=1.030 (1.000-1.030) Urine Protein Negative mg/dL (NEG-TRACE) Urine Glucose (UA) >=1000 mg/dL (NEG) Urine Ketones (Stick) Trace mg/dL (NEG) Urine Blood Moderate (NEG) Urine Nitrite Positive (NEG) Urine Bilirubin Negative (NEG) Urine Urobilinogen Dipstick 0.2 mg/dL (0.2 mg/dL) Urine Leukocyte Esterase Negative (NEG) Urine RBC Occ /HPF (0-2) Urine WBC Occ /HPF (0-4) Urine Squamous Epithelial Cells Mod /LPF Urine Bacteria Many /HPF (0-FEW) Urine Hyaline Casts Occasional /HPF Urine Mucus Slight /LPF Urine Yeast Present /HPF Glucose (Fingerstick) 508 mg/dL (70-99) *H Test 12/27/20 04:30 12/27/20 07:26 12/27/20 08:15 Lactic Acid Level 2.2 mmol/L (0.4-2.0) H 2.4 mmol/L (0.4-2.0) H Glucose (Fingerstick) 383 mg/dL (70-99) H Laboratory Tests 12/27/20 00:30 Laboratory Tests 12/27/20 00:30 ASSESSMENT/PLAN ASSESSMENT/PLAN 1. Weakness, recurrent falls; CT with acute T10 fracture along with chronic T12 and L1 fractures. No precipitating dizziness or LOC 2. NSTEMI; initial high sensitivity trop 5432. Possibly type II, but type I cannot be ruled out. CP free. EKG not available in system 3. Acute on chronic CHF with possible diastolic dysfunction; s/p IV Lasix 4. Diabetes, II with hyperglycemia 5. Lactic acidosis 6. Accelerated hypertension 7. TRICIA 8. UTI 9. Self care deficit Recommendations Trend troponin Obtain EKG from ED. Repeat EKG now Lipids Start heparin gtt per CV protocol Diuresis with monitoring of renal function Echo to assess LV systolic function Will need further ischemic evaluation Wound care consult. Further pending above NELLA CHARLES MD 12/28/20 0749: CARDIAC CONSULT ASSESSMENT/PLAN ASSESSMENT/PLAN Patient seen and examined 12/27/2020. Agree with SCIENCE INTERPRETER's assessment and plan. Non-STEMI most probably demand ischemia/type II -troponin levels trending down Continue heparin infusion per protocol 2D echo showed normal LV systolic function Acute on chronic diastolic heart failure better compensated with diuresis We will consider ischemic evaluation as an outpatient Thank you for your consultation OTILIA GR APRN Dec 27, 2020 10:14 NELLA CHARLES MD Dec 28, 2020 07:49
[2020-12-27] MEDS ORDERED: FUROSEMIDE 40 MG/4 ML VIAL. IVP ONE (10:30)
[2020-12-27 11:00] VITALS: BP 135/63
--- NOTE | 2020-12-27 11:02 | EKG ---
[facility] [address] [place] [address] Test Date: 2020-12-27 Test Time: 10:58:33 Pat Name: JOSAFAT SAAVEDRA Department: Room: [facility] Gender: F Supervisor Cell Operation: JUD : 1935 Requested By: OTILIA GR Order Number: [id number] Reading MD: Evan Ramos Measurements Intervals Porter Rate: 83 P: 56 DC: 144 QRS: 14 QRSD: 90 T: 15 QT: 360 QTc: 429 Interpretive Statements SINUS RHYTHM Electronically Signed On 01-03-2021 11:35:16 CARE AID by Evan Ramos
[2020-12-27] MEDS: PIPERACILLIN/TAZOBACTAM 2.25 GM in IV NORMAL SALINE 50ML 50 ML IV SCH ×3 (11:08→17:50)
[2020-12-27] MEDS: NYSTATIN TOPICAL POWDER 15GM BOTTLE. TP SCH ×2 (11:09→22:49)
[2020-12-27] MEDS ORDERED: ASPIRIN 325 MG TABLET PO ONE (11:30)
--- NOTE | 2020-12-27 11:32 | HP ---
DATE OF SERVICE: 12/27/2020 ADMIT DATE: 12/27/2020 CHIEF COMPLAINT: Falls, weakness, back pain. HISTORY OF PRESENT ILLNESS: The patient is a pleasant elderly female who presented to the ER last night via EMS. She has been falling a lot, especially over the past month. When EMS arrived, she was hypoxic. She had some coughing and shortness of breath as well. From the chart, it appears she is not very compliant, she has not been to a physician in a while, although she does have diabetes and other issues. While in the ER, we noticed that her troponin was quite high at 5432. She also had T10 vertebral body fracture. I discussed the case with ER physician. We are admitting the patient to cardiac floor. We are also going to rule out COVID-19. Cardiology has already seen her. They put her on a heparin drip. PAST MEDICAL HISTORY: Noncompliance, hypertension, diabetes, chronic renal insufficiency, , hysterectomy, some type of "not my intestine removed." ALLERGIES: None. FAMILY HISTORY: Diabetes. SOCIAL HISTORY: She does not drink, smoke or take drugs. MEDICATIONS: Reviewed. Please refer to the MRAD. REVIEW OF SYSTEMS: GENERAL: No history of weight change, weakness or fevers. SKIN: No bruising, hair changes or rashes. EYES: No blurred, double or loss of vision. NOSE AND THROAT: No history of nosebleeds, hoarseness or sore throat. HEART: No history of palpitations, chest pain or shortness of breath on exertion. LUNGS: Denies cough, hemoptysis, wheezing or shortness of breath. GASTROINTESTINAL: Denies changes in appetite, nausea, vomiting, diarrhea or constipation. GENITOURINARY: No history of frequency, urgency, hesitancy or nocturia. NEUROLOGIC: Denies history of numbness, tingling, tremor or weakness. PSYCHIATRIC: No history of panic, anxiety or depression. ENDOCRINE: No history of heat or cold intolerance, polyuria or polydipsia. EXTREMITIES: Denies muscle weakness, joint pain, pain on walking or stiffness. PHYSICAL EXAMINATION: VITALS: Within normal limits and are stable. GENERAL: No apparent distress. Alert and oriented. HEENT: Normal cephalic atraumatic, external auditory canals are patent. EYES: Extraocular muscles are intact, pupils are equally round and reactive to light and accommodation. MUSCULOSKELETAL: Well developed, well nourished, good range of motion. ENDOCRINE: No thyromegaly was palpated. LYMPHATICS: No cervical chain or axillary nodes were noted. HEMATOPOIETIC: No bruising. NECK: Supple, no JVD, no thyromegaly was noted. LUNGS: Clear to auscultation in all lung gutierrez without rhonchi or wheezing. HEART: RRR, S1, S2 present. Peripheral pulses intact, no obvious murmurs were noted. ABDOMEN: Soft, nontender. Positive bowel sounds no organomegaly, normal bowel sounds. EXTREMITIES: Without any cyanosis, clubbing, or edema. Pedal pulses intact, Homans sign is negative. NEUROLOGIC: Normal speech, normal tone. A and O x 3, moves all extremities, no obvious focal deficits. PSYCHIATRIC: Normal affect, normal mood. Stable. SKIN: No ulcerations or rashes, good skin turgor, no jaundice. VASCULAR: Good capillary refill, neurovascular bundle appears to be intact. LABORATORY DATA: Troponin is 5432. Glucose was as high as 508, I gave her some insulin, we got down to 383. Hematology is normal. COVID testing is negative. ASSESSMENT AND PLAN: Fall, back pain, T10 vertebral body fracture, elevated troponin, chronic renal insufficiency. The patient has been admitted to the cardiac floor. We are checking serial enzymes, serial EKGs. We have started a heparin drip per Cardiology recommendations. We certainly agree and appreciate their input. We will go ahead and consult Nephrology. Trend her labs. Consult Neurosurgery. PT, OT, home meds. DVT prophylaxis. Full code. Long-term prognosis guarded. DEEPAK DR: Lennox TID: [id number]
[2020-12-27] MEDS ORDERED: INSULIN LISPRO 300 UNITS/3 ML VIAL. SQ SCH (12:00)
[2020-12-27] MEDS ORDERED: INSULIN LISPRO 300 UNITS/3 ML VIAL. SQ ONE (12:45)
--- NOTE | 2020-12-27 14:18 | NUR ---
SS following for discharge planning. SS reviewed pt chart and discussed with pt RN. Pt is from home and is currently requiring oxygen at four liters nasal canula. COVID19 negative. Pt on IV Vancomycin and IV Zosyn. Heparin drip. Neurosurgery and Nephrology consulted. Cardiology following. PT/OT/ST ordered. NPO. SS will continue to follow for discharge planning.
--- NOTE | 2020-12-27 14:38 | CARD ---
MR#: [id number] Date of Study: 12/27/2020 Ordering Physician: OTILIA GR, Referring Physician: OTILIA GR, Tech: GracyKandis Hinojosa, [facility] APPROVED REPORT EXAM: Two-dimensional and M-mode echocardiogram with Doppler and color Doppler. Other Information Quality : FairHR: 90bpm INDICATION Dyspnea Congestive Heart Failure Non STEMI RISK FACTORS Hypertension Diabetes 2D DIMENSIONS RVDd3.1 (2.9-3.5cm)Left Atrium(2D)4.9 (1.6-4.0cm) IVSd1.5 (0.7-1.1cm)Aortic Root(2D)3.2 (2.0-3.7cm) LVDd4.2 (3.9-5.9cm)LVOT Diameter2.0 (1.8-2.4cm) PWd1.5 (0.7-1.1cm)LVDs3.2 (2.5-4.0cm) FS (%) 22.7 %SV35.7 ml LVEF(%)46.0 (>50%) Aortic Valve AoV Peak Sergei.173.1cm/sAoV VTI35.7cm AO Peak GR.12.0mmHgLVOT VTI 21.54cm AO Mean GR.7mmHg Mitral Valve MV E Zvjfkydl531.3cm/sMV E Peak Gr.8mmHg MV DECEL [id number] A Xypoirhf19.4cm/s MV E Mean Gr.4mmHgE/A Ratio1.4 TDI Lateral E' P. V9.07cm/sMedial E' P. V6.89cm/s E/Lateral E'12.7E/Medial E'16.7 Tricuspid Valve TR P. Hodhyplp825gy/sRAP RXHUPPIB60uhWl TR Peak Gr.62iyGwAUWX55jkSi Pulmonary Vein S1 Wvyeumov75.6cm/sS2 Runrqqai93.88cm/s D2 Crwpndrl37.9cm/sPVa wphhrkwi65adts LEFT VENTRICLE The left ventricle is normal size. There is moderate concentric left ventricular hypertrophy. The lef t ventricular systolic function is normal. The Ejection Fraction is 50-55%. There is normal LV segmen telma wall motion. Transmitral Doppler flow pattern is Grade II-pseudonormal filling dynamics. RIGHT VENTRICLE The right ventricle is normal size. The right ventricle is mildly hypertrophied. The right ventricula r systolic function is normal. ATRIA The left atrium is mildly dilated. The right atrium is borderline dilated. The interatrial septum is intact with no evidence for an atrial septal defect or patent foramen ovale as noted on 2-D or Dopple r imaging. AORTIC VALVE The aortic valve is not well visualized. Doppler and Color Flow revealed trace aortic regurgitation. There is no significant aortic valvular stenosis. Calculated aortic valve area is 1.99 cm2 with maxim um pressure gradient of 14 mmHg and mean pressure gradient of 7 mmHg. MITRAL VALVE The mitral valve is moderately thickened. There is no evidence of mitral valve prolapse. There is no mitral valve stenosis. Doppler and Color-flow revealed trace mitral regurgitation. TRICUSPID VALVE The tricuspid valve is not well visualized. Doppler and Color Flow revealed trace tricuspid regurgita tion with an estimated PAP of 53 mmHg. There is no tricuspid valve stenosis. PULMONIC VALVE The pulmonic valve is not well visualized. Doppler and Color Flow revealed no pulmonic valvular regur gitation. GREAT VESSELS The aortic root is normal in size. The IVC was not visualized. PERICARDIAL EFFUSION There is no evidence of significant pericardial effusion. Critical Notification Critical Value: No <Conclusion> The left ventricular systolic function is normal. The Ejection Fraction is 50-55%. There is normal LV segmental wall motion. Transmitral Doppler flow pattern is Grade II-pseudonormal filling dynamics. Trace mitral regurgitation. Trace tricuspid regurgitation with an estimated PAP of 53 mmHg. There is no evidence of significant pericardial effusion. Signed by : Pedro Pichardo, Electronically Approved : 12/27/2020 14:37:29
[2020-12-27 15:00] VITALS: BP 157/70
[2020-12-27 16:27] LABS: CALCIUM 8.7 mg/dL (8.5-10.1); CREATININE 1.3 mg/dL (0.6-1.0); MAGNESIUM 2.1 mg/dL (1.8-2.4); POTASSIUM 3.8 mmol/L (3.5-5.1)
[2020-12-27] MEDS ORDERED: hydrALAZINE 20 MG/ML VIAL. IVP PRN (16:30)
--- NOTE | 2020-12-27 16:52 | NUR ---
Wound/Ostomy Care Wound Type/Assessment: Wound care consult for scaly legs and yeast under pannus and breast per nurse. No open areas noted upon head to toe skin assessment. Pannus and breast are a little pink but yeast seems to be resolving. Legs have dry skin and scaly but not open, recommendations for ammonium lactate. Buttocks is pink but blanchable, calazime cream applied. Wound care is signing off for now, reconsult if any wound open. Treatment Recommendations/Plan: Bilateral lower legs: apply ammonium lactate as prescribed. Buttocks: apply calazime cream for protection Pannus/bilateral breast: continue to apply nystatin powder as prescribed Education provided: pt educated on turning q2h to avoid PUs Offloading surface/device: pillows to offload Recommended Referrals/Tests: n/a Discharge Recommendations for dressings: same as above, wound care will sign off.
[2020-12-27 19:06] VITALS: BP 149/68
[2020-12-27 22:34] VITALS: BP 129/61
[2020-12-27] MEDS: AMMONIUM LACTATE 12% TOPICAL LOTION 225GM BOTTLE. TP SCH (22:48)
[2020-12-27] MEDS: METOPROLOL TART IMMED RELEASE 25 MG TABLET. PO SCH (22:50)
[2020-12-28] MEDS: PIPERACILLIN/TAZOBACTAM 2.25 GM in IV NORMAL SALINE 50ML 50 ML IV SCH ×2 (00:01→07:28)
[2020-12-28 03:33] VITALS: BP 145/63
[2020-12-28] MEDS: VANCOMYCIN 1.75 GM in IV NORMAL SALINE 500ML BAG 500 ML IV SCH (04:45)
[2020-12-28 05:49] LABS: BASO % 1 % (0-3); EOS % 0 % (0-3); HEMATOCRIT 43.8 % (36.0-47.0); HEMOGLOBIN 13.8 g/dL (12.0-15.5); LYMPH % 11 % (24-48); MEAN CORPUSCULAR HEMOGLOBIN 30 pg (25-35); MEAN CORPUSCULAR HGB CONC 32 g/dL (31-37); MEAN CORPUSCULAR VOLUME 95 fL (79-100); MONO # 0.7 x10^3/uL (0.0-1.1); MONO % 9 % (0-9); NEUT # 6.8 x10^3/uL (1.8-7.7); NEUT % 79 % (31-73); PLATELET COUNT 139 x10^3/uL (140-400); RED BLOOD COUNT 4.64 x10^6/uL (3.50-5.40); WHITE BLOOD COUNT 8.6 x10^3/uL (4.0-11.0)
[2020-12-28 06:17] LABS: CALCIUM 8.5 mg/dL (8.5-10.1); CREATININE 1.3 mg/dL (0.6-1.0); POTASSIUM 4.3 mmol/L (3.5-5.1)
[2020-12-28 07:00] VITALS: BP 122/60
[2020-12-28 07:18] LABS: HEMOGLOBIN A1C 8.5 % (4.8-5.6)
--- NOTE | 2020-12-28 08:45 | PDOC ---
OTILIA GR HOT DIE PRESS OPERATOR 12/28/20 0845: CARDIO Progress Notes Date and Time Date of Service 12/28/20 Time of Evaluation 1110 Subjective Subjective: No Chest Pain, No Palpitations, Other (breathing improved ) Vitals Vitals Vital Signs Date Time Temp Pulse Resp B/P (MAP) Pulse Ox O2 Delivery O2 Flow Rate FiO2 12/28/20 03:33 98.5 66 18 145/63 (90) 90 Nasal Cannula 4.0 98.5 Weight Weight [ ] Input and Output Intake and Output Intake and Output 12/28/20 07:00 Intake Total 505 ml Output Total 1500 ml Balance -995 ml Intake Oral 350 ml IV Total 155 ml Output Urine Total 1500 ml Laboratory Labs Laboratory Tests Test 12/27/20 11:31 12/27/20 13:59 12/27/20 15:00 12/27/20 16:37 Glucose (Fingerstick) 472 mg/dL (70-99) 451 mg/dL (70-99) Heparin Anti-Xa Act, Unfractionated 0.41 IU/mL (0.30-0.70) Sodium Level 142 mmol/L (136-145) Potassium Level 3.8 mmol/L (3.5-5.1) Chloride Level 102 mmol/L (98-107) Carbon Dioxide Level 30 mmol/L (21-32) Anion Gap 10 (6-14) Blood Urea Nitrogen 39 mg/dL (7-20) Creatinine 1.3 mg/dL (0.6-1.0) Estimated GFR (Cockcroft-Gault) 39.0 Glucose Level 364 mg/dL (70-99) Calcium Level 8.7 mg/dL (8.5-10.1) Magnesium Level 2.1 mg/dL (1.8-2.4) Troponin I High Sensitivity 1672 ng/L (4-50) Test 12/27/20 17:09 12/27/20 20:21 12/27/20 20:30 12/28/20 05:35 Glucose (Fingerstick) 245 mg/dL (70-99) 225 mg/dL (70-99) Heparin Anti-Xa Act, Unfractionated 0.45 IU/mL (0.30-0.70) 0.50 IU/mL (0.30-0.70) White Blood Count 8.6 x10^3/uL (4.0-11.0) Red Blood Count 4.64 x10^6/uL (3.50-5.40) Hemoglobin 13.8 g/dL (12.0-15.5) Hematocrit 43.8 % (36.0-47.0) Mean Corpuscular Volume 95 fL (79-100) Mean Corpuscular Hemoglobin 30 pg (25-35) Mean Corpuscular Hemoglobin Concent 32 g/dL (31-37) Red Cell Distribution Width 16.0 % (11.5-14.5) Platelet Count 139 x10^3/uL (140-400) Neutrophils (%) (Auto) 79 % (31-73) Lymphocytes (%) (Auto) 11 % (24-48) Monocytes (%) (Auto) 9 % (0-9) Eosinophils (%) (Auto) 0 % (0-3) Basophils (%) (Auto) 1 % (0-3) Neutrophils # (Auto) 6.8 x10^3/uL (1.8-7.7) Lymphocytes # (Auto) 1.0 x10^3/uL (1.0-4.8) Monocytes # (Auto) 0.7 x10^3/uL (0.0-1.1) Eosinophils # (Auto) 0.0 x10^3/uL (0.0-0.7) Basophils # (Auto) 0.0 x10^3/uL (0.0-0.2) Sodium Level 136 mmol/L (136-145) Potassium Level 4.3 mmol/L (3.5-5.1) Chloride Level 99 mmol/L (98-107) Carbon Dioxide Level 30 mmol/L (21-32) Anion Gap 7 (6-14) Blood Urea Nitrogen 39 mg/dL (7-20) Creatinine 1.3 mg/dL (0.6-1.0) Estimated GFR (Cockcroft-Gault) 39.0 Glucose Level 406 mg/dL (70-99) Calcium Level 8.5 mg/dL (8.5-10.1) Test 12/28/20 07:57 Glucose (Fingerstick) 445 mg/dL (70-99) Microbiology Micro Microbiology 12/27/20 Urine Culture - Preliminary, Resulted 12/27/20 Blood Culture - Final, Complete Physical Exam HEENT: Neck Supple W Full Motion Chest: Symmetric LUNGS: Clear to Auscultation Heart: RRR Abdomen: Soft N/T, Other (obese ) Extremities: Other (2+ bilateral LE edema. Chronic venous stasis changes) Neurology: alert, oriented, follow commands Assessment Assessment 1. Weakness, recurrent falls; CT with acute T10 fracture along with chronic T12 and L1 fractures. No precipitating dizziness or LOC 2. NSTEMI; initial high sensitivity trop peak 5432. Most probable type II, demand ischemia with multiple culprits noted. EKG without significant acute changes 3. Acute on chronic diastolic CHF; echo with preserved LV systolic function. improved s/p IV Lasix 4. Diabetes, II with hyperglycemia 5. Lactic acidosis, bacteremia; BC with GPC 6. Accelerated hypertension; now controlled 7. TRICIA 8. UTI 9. Self care deficit Recommendations Continue heparin gtt for addition 24 hrs ASA, statin Diuresis with monitoring of renal function Will plan for outpatient ischemic evaluation Consult ID for bacteremia Justicifation of Admission Dx: Justifications for Admission: Justification of Admission Dx: Yes NELLA CHARLES MD 12/29/20 0801: CARDIO Progress Notes Assessment Assessment Patient seen and examined 12/28/2020. Agree with RETAIL SUPPORT MANAGER's assessment and plan. Non-STEMI most probably demand ischemia/type II -troponin levels trending down Continue heparin infusion per protocol 2D echo showed normal LV systolic function Acute on chronic diastolic heart failure better compensated with diuresis We will consider ischemic evaluation as an outpatient Agree with consulting ID for bacteremia OTILIA GR APRN Dec 28, 2020 08:45 NELLA CHARLES MD Dec 29, 2020 08:01
[2020-12-28] MEDS: ATORVASTATIN CALCIUM 20 MG TABLET PO SCH (10:04)
[2020-12-28] MEDS: ASPIRIN ENTERIC COATED 81 MG TABLET.DR. PO SCH (10:04)
[2020-12-28] MEDS: LACTOBACILLUS RHAMNOSUS GG 1 CAPSULE. PO SCH ×2 (10:04→21:31)
[2020-12-28] MEDS: METOPROLOL TART IMMED RELEASE 25 MG TABLET. PO SCH ×2 (10:05→21:31)
[2020-12-28] MEDS: AMMONIUM LACTATE 12% TOPICAL LOTION 225GM BOTTLE. TP SCH ×2 (10:20→21:34)
[2020-12-28] MEDS: NYSTATIN TOPICAL POWDER 15GM BOTTLE. TP SCH ×2 (10:20→21:33)
--- NOTE | 2020-12-28 10:23 | NUR ---
SS following up with discharge planning. SS reviewed pt chart and discussed with pt RN. Pt is currently requiring oxygen at four liters nasal canula. COVID19 negative. Pt on IV Vancomycin and IV Zosyn. Wound care following. PO diet. Currently awaiting Neurosurgery to see. PT/OT ordered. Pt reported that she lives at home with her two sons and has no home oxygen. Pt reported having no services in the home at this time. [facility]able need [facility]. Currently awaiting PT/OT evaluations for recommendations. SS will continue to follow for discharge planning.
[2020-12-28] MEDS: INSULIN LISPRO 300 UNITS/3 ML VIAL. SQ SCH ×4 (10:25→17:40)
[2020-12-28] MEDS ORDERED: INSULIN LISPRO 300 UNITS/3 ML VIAL. SQ ONE ×3 (10:45→13:15)
[2020-12-28 11:00] VITALS: BP 137/65
--- NOTE | 2020-12-28 11:28 | PDOC ---
[employer] PROGRESS NOTE Date of Service DOS: DATE: 12/28/20 TIME: :22 Chief Complaint Chief Complaint Congestive Heart Failure Elevated Troponin Level Generalized weakness Hyperglycemia due to DM Multiple Fall Status History of Present Illness History of Present Illness 12/28/2020 Patient was seen and examined, in NAD. Patient is on 2 L oxygen per NC Antibiotics hanging Heparin Drip handing per cardiology Patient Troponin level still high, but trending down Discussed with RN, chart reviewed. Vitals/I&O Vitals/I&O: Vital Signs Date Time Temp Pulse Resp B/P (MAP) Pulse Ox O2 Delivery O2 Flow Rate FiO2 12/28/20 11:00 98.5 81 18 137/65 (89) 90 Nasal Cannula 2.0 98.5 I & O 12/27/20 12/27/20 12/28/20 15:00 23:00 07:00 Intake Total 50 ml 155 ml 300 ml Output Total 1500 ml Balance 50 ml -1345 ml 300 ml Physical Exam General: Alert, Oriented X3, Cooperative, No acute distress Heart: Regular rate Lungs: Clear Abdomen: Soft, Other (obese) Extremities: Other (LE edema) Skin: Other (dry, scaly skin. Chronic venous stasis changes) Labs Labs: Laboratory Tests Test 12/27/20 11:31 12/27/20 13:59 12/27/20 15:00 12/27/20 16:37 Glucose (Fingerstick) 472 mg/dL (70-99) 451 mg/dL (70-99) Heparin Anti-Xa Act, Unfractionated 0.41 IU/mL (0.30-0.70) Sodium Level 142 mmol/L (136-145) Potassium Level 3.8 mmol/L (3.5-5.1) Chloride Level 102 mmol/L (98-107) Carbon Dioxide Level 30 mmol/L (21-32) Anion Gap 10 (6-14) Blood Urea Nitrogen 39 mg/dL (7-20) Creatinine 1.3 mg/dL (0.6-1.0) Estimated GFR (Cockcroft-Gault) 39.0 Glucose Level 364 mg/dL (70-99) Calcium Level 8.7 mg/dL (8.5-10.1) Magnesium Level 2.1 mg/dL (1.8-2.4) Troponin I High Sensitivity 1672 ng/L (4-50) Test 12/27/20 17:09 12/27/20 20:21 12/27/20 20:30 12/28/20 05:35 Glucose (Fingerstick) 245 mg/dL (70-99) 225 mg/dL (70-99) Heparin Anti-Xa Act, Unfractionated 0.45 IU/mL (0.30-0.70) 0.50 IU/mL (0.30-0.70) White Blood Count 8.6 x10^3/uL (4.0-11.0) Red Blood Count 4.64 x10^6/uL (3.50-5.40) Hemoglobin 13.8 g/dL (12.0-15.5) Hematocrit 43.8 % (36.0-47.0) Mean Corpuscular Volume 95 fL (79-100) Mean Corpuscular Hemoglobin 30 pg (25-35) Mean Corpuscular Hemoglobin Concent 32 g/dL (31-37) Red Cell Distribution Width 16.0 % (11.5-14.5) Platelet Count 139 x10^3/uL (140-400) Neutrophils (%) (Auto) 79 % (31-73) Lymphocytes (%) (Auto) 11 % (24-48) Monocytes (%) (Auto) 9 % (0-9) Eosinophils (%) (Auto) 0 % (0-3) Basophils (%) (Auto) 1 % (0-3) Neutrophils # (Auto) 6.8 x10^3/uL (1.8-7.7) Lymphocytes # (Auto) 1.0 x10^3/uL (1.0-4.8) Monocytes # (Auto) 0.7 x10^3/uL (0.0-1.1) Eosinophils # (Auto) 0.0 x10^3/uL (0.0-0.7) Basophils # (Auto) 0.0 x10^3/uL (0.0-0.2) Sodium Level 136 mmol/L (136-145) Potassium Level 4.3 mmol/L (3.5-5.1) Chloride Level 99 mmol/L (98-107) Carbon Dioxide Level 30 mmol/L (21-32) Anion Gap 7 (6-14) Blood Urea Nitrogen 39 mg/dL (7-20) Creatinine 1.3 mg/dL (0.6-1.0) Estimated GFR (Cockcroft-Gault) 39.0 Glucose Level 406 mg/dL (70-99) Calcium Level 8.5 mg/dL (8.5-10.1) Test 12/28/20 07:57 Glucose (Fingerstick) 445 mg/dL (70-99) Assessment and Plan Assessmemt and Plan Problems Medical Problems: (1) Congestive heart failure Status: Acute (2) Elevated troponin level Status: Acute (3) Generalized weakness Status: Acute (4) Hyperglycemia due to diabetes mellitus Status: Acute (5) Multiple falls Status: Acute (6) Requires supplemental oxygen Status: Acute (7) Respiratory failure with hypoxia Status: Acute (8) T10 vertebral fracture Status: Acute (9) UTI (urinary tract infection) Status: Acute PLAN: Continue Cardiac Monitoring Serial Enzymes Serial EKG Continue Heparin Drip per cardiology Awaiting Cardiology input Continue Antibiotics (Zosyn and Doxycycline) Appreciate Nephrology's Input Trend Labs Home Meds DVT Prophylaxis Full Code Comment Review of Relevant I have reviewed the following items irving (where applicable) has been applied. Medications: Current Medications Medications (Trade) Dose Ordered Sig/Glenn Route PRN Reason Start Time Stop Time Status Last Admin Dose Admin Vancomycin HCl 1.75 gm/Sodium Chloride 500 ml @ 250 mls/hr Q24H IV 12/28/20 04:00 12/28/20 04:45 Aspirin (Laura Aspirin) 325 mg 1X ONCE PO 12/27/20 11:30 12/27/20 11:31 DC 12/27/20 12:52 Aspirin (Ecotrin) 81 mg DAILYWBKFT PO 12/28/20 08:00 12/28/20 10:04 Insulin Human Lispro (HumaLOG) 30 units 1X ONCE SQ 12/27/20 12:45 12/27/20 12:51 DC 12/27/20 12:56 Metoprolol Tartrate (Lopressor) 25 mg BID PO 12/27/20 21:00 12/28/20 10:05 Atorvastatin Calcium (Lipitor) 20 mg DAILY PO 12/28/20 09:00 12/28/20 10:04 Lactic Acid (Lac-Hydrin) 1 amy BID TP 12/27/20 21:00 12/28/20 10:20 Justifications for Admission Other Justification Symptomatic cholelithiasis CASTLE,NIAL K III DO Dec 28, 2020 11:27
--- NOTE | 2020-12-28 11:58 | PDOC2 ---
CONSULT Date of Consult Date of Consult DATE: 12/28/20 TIME: 11:50 Reason for Consult Reason for Consult: TRICIA Referring Physician Referring Physician: DEBRA Identification/Chief Complaint Chief Complaint WEAKNESS, FALL Source Source: Chart review, Patient History of Present Illness Reason for Visit: THIS IS AN 85 YR OLD WITH WEAKNESS AND A FALL AND SOME SOB. TROPONIN IS UP AND CARDIOLOGY EVALUATION ONGOING AT THIS TIME. SHE HAS VASCULAR CONGESTION AND PLEURAL EFFUSION ON HER CXRAY. ALSO HAS NOTED PROGRESSIVE LE SWELLING IN HER LE WELL. APPARENTLY HAS PRESERVED EF. ON ADMIT SHE IS ALSO NOTED TO HAVE VERY HIGH BLOOD GLUCOSE LEVELS WITH BG OVER 500. NO EVIDENCE OF MET ACIDOSIS NOTED. UA NOTABLE FOR TRACE KETONES AND EXPECTED GLUCOSURIA. CR OF 1.5. NO CKD BASED ON CR OF 0.8 IN LATE 2019. DENIED ANY OTHER HX. IMAGING ALSO SHOWED A T 10 FRACTURE Past Medical History Cardiovascular: HTN Pulmonary: No pertinent hx Hepatobiliary: No pertinent hx Musculoskeletal: Osteoarthritis Rheumatologic: Other Endocrine: Diabetes Past Surgical History Past Surgical History: Hysterectomy Family History Family History: Hypertension Social History No ALCOHOL: none Drugs: None Lives: with Family Current Problem List Problem List Problems Medical Problems: (1) Congestive heart failure Status: Acute (2) Elevated troponin level Status: Acute (3) Generalized weakness Status: Acute (4) Hyperglycemia due to diabetes mellitus Status: Acute (5) Multiple falls Status: Acute (6) Requires supplemental oxygen Status: Acute (7) Respiratory failure with hypoxia Status: Acute (8) T10 vertebral fracture Status: Acute (9) UTI (urinary tract infection) Status: Acute Current Medications Current Medications Current Medications Ceftriaxone Sodium (Rocephin) 2 gm 1X ONCE IVP Last administered on 12/27/20at 02:19; Start 12/27/20 at 02:00; Stop 12/27/20 at 02:01; Status DC Vancomycin HCl 250 ml @ 250 mls/hr 1X ONCE IV ; Start 12/27/20 at 01:45; Stop 12/27/20 at 02:44; Status UNV Vancomycin HCl (Vanco Per Pharmacy) 1 each PRN DAILY PRN MC SEE COMMENTS Last administered on 12/27/20at 15:06; Start 12/27/20 at 01:45 Fentanyl Citrate (Fentanyl 2ml Vial) 50 mcg 1X ONCE IVP Last administered on 12/27/20at 02:05; Start 12/27/20 at 02:00; Stop 12/27/20 at 02:01; Status DC Nitroglycerin (Nitro-Bid Oint) 1 inch 1X ONCE TP Last administered on 12/27/20at 02:06; Start 12/27/20 at 02:00; Stop 12/27/20 at 02:01; Status DC Vancomycin HCl 2 gm/Sodium Chloride 500 ml @ 250 mls/hr 1X ONCE IV Last administered on 12/27/20at 02:20; Start 12/27/20 at 02:30; Stop 12/27/20 at 04:29; Status DC Furosemide (Lasix) 20 mg 1X ONCE IVP Last administered on 12/27/20at 03:43; Start 12/27/20 at 03:30; Stop 12/27/20 at 03:31; Status DC Insulin Human Regular (HumuLIN R VIAL) 10 unit 1X ONCE IV Last administered on 12/27/20at 03:41; Start 12/27/20 at 03:30; Stop 12/27/20 at 03:31; Status DC Ondansetron HCl (Zofran) 4 mg PRN Q8HRS PRN IVP NAUSEA/VOMITING 1ST CHOICE; Start 12/27/20 at 03:15; Stop 12/28/20 at 03:14; Status DC Fentanyl Citrate (Fentanyl 2ml Vial) 50 mcg PRN Q24HRS PRN IVP SEVERE PAIN 7- 10; Start 12/27/20 at 03:15; Stop 12/27/20 at 03:25; Status DC Fentanyl Citrate (Fentanyl 2ml Vial) 50 mcg PRN Q2HRS PRN IVP SEVERE PAIN 7-10 Last administered on 12/27/20at 04:53; Start 12/27/20 at 03:30; Stop 12/28/20 at 03:29; Status DC Vancomycin HCl 1.75 gm/Sodium Chloride 500 ml @ 250 mls/hr Q24H IV Last admini stered on 12/28/20at 04:45; Start 12/28/20 at 04:00 Vancomycin HCl (Vancomycin Trough Level) 1 each 1X ONCE MC ; Start 12/29/20 at 03:30; Stop 12/29/20 at 03:31 Influenza Virus Vaccine Quadrival (Flulaval Quad 6331-0350 Syringe) 0.5 ml ONCE ONCE VAX IM Last administered on 12/27/20at 17:54; Start 12/27/20 at 09:00; Stop 12/27/20 at 09:01; Status DC Lactobacillus Rhamnosus (Culturelle) 1 cap BID PO Last administered on 12/28/20at 10:04; Start 12/27/20 at 09:00 Heparin Sodium (Porcine) (Heparin Sodium) 4,000 unit 1X ONCE IV Last administered on 12/27/20at 09:13; Start 12/27/20 at 09:00; Stop 12/27/20 at 09:01; Status DC Heparin Sodium/ Dextrose 250 ml @ 10 mls/hr CONT PRN IV PER PROTOCOL Last administered on 12/27/20at 09:17; Start 12/27/20 at 09:00 Heparin Sodium (Porcine) (Heparin Sodium) 3,000 unit PRN Q6HRS PRN IV FOR UFH LEVEL LESS THAN 0.2; Start 12/27/20 at 09:00 Info (Anti-Coagulation Monitoring By Pharmacy) 1 each PRN DAILY PRN MC PER PROTOCOL Last administered on 12/27/20at 15:10; Start 12/27/20 at 09:00 Piperacillin Sod/ Tazobactam Sod (Zosyn Per Pharmacy) 1 each PRN DAILY PRN MC SEE COMMENTS; Start 12/27/20 at 09:15 Nystatin (Nystop) 1 amy BID TP Last administered on 12/28/20at 10:20; Start 12/27/20 at 10:00 Dextrose (Dextrose 50%-Water Syringe) 12.5 gm PRN Q15MIN PRN IV SEE COMMENTS; Start 12/27/20 at 09:30; Stop 12/27/20 at 09:26; Status DC Piperacillin Sod/ Tazobactam Sod 2.25 gm/Sodium Chloride 50 ml @ 100 mls/hr Q6HRS IV Last administered on 12/28/20at 07:28; Start 12/27/20 at 09:30; Stop 12/28/20 at 10:47; Status DC Insulin Human Lispro (HumaLOG) 0-7 UNITS TIDWMEALS SQ ; Start 12/27/20 at 12:00; Stop 12/27/20 at 09:32; Status DC Dextrose (Dextrose 50%-Water Syringe) 12.5 gm PRN Q15MIN PRN IV SEE COMMENTS; Start 12/27/20 at 09:30 Insulin Human Lispro (HumaLOG) 0-7 UNITS TIDWMEALS SQ Last administered on 12/28/20at 10:25; Start 12/27/20 at 09:30 Furosemide (Lasix) 40 mg 1X ONCE IVP Last administered on 12/27/20at 11:08; Start 12/27/20 at 10:30; Stop 12/27/20 at 10:34; Status DC Aspirin (Laura Aspirin) 325 mg 1X ONCE PO Last administered on 12/27/20at 12:52; Start 12/27/20 at 11:30; Stop 12/27/20 at 11:31; Status DC Aspirin (Ecotrin) 81 mg DAILYWBKFT PO Last administered on 12/28/20at 10:04; Start 12/28/20 at 08:00 Insulin Human Lispro (HumaLOG) 30 units 1X ONCE SQ Last administered on 12/27/20at 12:56; Start 12/27/20 at 12:45; Stop 12/27/20 at 12:51; Status DC Metoprolol Tartrate (Lopressor) 25 mg BID PO Last administered on 12/28/20at 10:05; Start 12/27/20 at 21:00 Hydralazine HCl (Apresoline Inj) 10 mg PRN Q4HRS PRN IVP ELEVATED BP, SEE COMMENTS; Start 12/27/20 at 16:30 Atorvastatin Calcium (Lipitor) 20 mg DAILY PO Last administered on 12/28/20at 10:04; Start 12/28/20 at 09:00 Lactic Acid (Lac-Hydrin) 1 amy BID TP Last administered on 12/28/20at 10:20; Start 12/27/20 at 21:00 Insulin Human Lispro (HumaLOG) 10 units 1X ONCE SQ ; Start 12/28/20 at 10:45; Stop 12/28/20 at 10:47; Status DC Piperacillin Sod/ Tazobactam Sod 3.375 gm/Sodium Chloride 50 ml @ 100 mls/hr Q6HRS IV ; Start 12/28/20 at 12:00 Active Scripts Active Allergies Allergies: Coded Allergies: No Known Drug Allergies (Unverified , 03/01/16) ROS General: YES: Fatigue, Appetite PSYCHOLOGICAL ROS: YES: Anxiety Eyes: Yes Decreased vision HEENT: YES: Heacaches Respiratory: YES: Cough, Shortness of breath Cardiovascular: yes Edema Gastrointestinal: Yes Constipation Genitourinary: YES Other (NOCTURIA) Musculoskeletal: Yes Muscular Weakness Neurological: Yes Weakness Skin: Yes Dry Skin Physical Exam General: Alert, Oriented X3, Cooperative, No acute distress HEENT: Atraumatic, PERRLA Lungs: Other (DECREASED AIRFLOW AT BASES) Heart: Regular rate Abdomen: Normal bowel sounds Extremities: No clubbing, Other (3+ LE EDEMA) Skin: No breakdown, Other (EXCORIATED SKIN IN PRETIBIAL AREAS BILATERALLY WITH ERYTHEMA) Neuro: Normal speech Psych/Mental Status: Mental status NL, Mood NL MUSCULOSKELETAL: No joint tenderness, No deformity Vitals VITALS Vital Signs Date Time Temp Pulse Resp B/P (MAP) Pulse Ox O2 Delivery O2 Flow Rate FiO2 12/28/20 11:00 98.5 81 18 137/65 (89) 90 Nasal Cannula 2.0 98.5 Labs Labs Laboratory Tests Test 12/27/20 00:30 12/27/20 00:35 12/27/20 02:38 12/27/20 04:07 White Blood Count 9.1 x10^3/uL (4.0-11.0) Red Blood Count 4.86 x10^6/uL (3.50-5.40) Hemoglobin 14.9 g/dL (12.0-15.5) Hematocrit 46.1 % (36.0-47.0) Mean Corpuscular Volume 95 fL (79-100) Mean Corpuscular Hemoglobin 31 pg (25-35) Mean Corpuscular Hemoglobin Concent 32 g/dL (31-37) Red Cell Distribution Width 16.0 % (11.5-14.5) Platelet Count 175 x10^3/uL (140-400) Neutrophils (%) (Auto) 79 % (31-73) Lymphocytes (%) (Auto) 11 % (24-48) Monocytes (%) (Auto) 9 % (0-9) Eosinophils (%) (Auto) 0 % (0-3) Basophils (%) (Auto) 1 % (0-3) Neutrophils # (Auto) 7.2 x10^3/uL (1.8-7.7) Lymphocytes # (Auto) 1.0 x10^3/uL (1.0-4.8) Monocytes # (Auto) 0.9 x10^3/uL (0.0-1.1) Eosinophils # (Auto) 0.0 x10^3/uL (0.0-0.7) Basophils # (Auto) 0.1 x10^3/uL (0.0-0.2) Sodium Level 137 mmol/L (136-145) Potassium Level 4.7 mmol/L (3.5-5.1) Chloride Level 99 mmol/L (98-107) Carbon Dioxide Level 29 mmol/L (21-32) Anion Gap 9 (6-14) Blood Urea Nitrogen 42 mg/dL (7-20) Creatinine 1.5 mg/dL (0.6-1.0) Estimated GFR (Cockcroft-Gault) 33.1 BUN/Creatinine Ratio 28 (6-20) Glucose Level 542 mg/dL (70-99) Hemoglobin A1c 8.5 % (4.8-5.6) Lactic Acid Level 2.2 mmol/L (0.4-2.0) Calcium Level 9.1 mg/dL (8.5-10.1) Phosphorus Level 3.3 mg/dL (2.6-4.7) Magnesium Level 2.3 mg/dL (1.8-2.4) Total Bilirubin 0.9 mg/dL (0.2-1.0) Aspartate Amino Transf (AST/SGOT) 37 U/L (15-37) Alanine Aminotransferase (ALT/SGPT) 34 U/L (14-59) Alkaline Phosphatase 133 U/L (46-116) Creatine Kinase 102 U/L (26-192) Troponin I High Sensitivity 5432 ng/L (4-50) FD-Het-I-Type Natriuretic Peptide 41185 pg/mL (0-449) Total Protein 7.0 g/dL (6.4-8.2) Albumin 2.9 g/dL (3.4-5.0) Albumin/Globulin Ratio 0.7 (1.0-1.7) Triglycerides Level 118 mg/dL (0-150) Cholesterol Level 163 mg/dL (0-200) LDL Cholesterol, Calculated 78 mg/dL (0-100) VLDL Cholesterol, Calculated 24 mg/dL (0-40) Non-HDL Cholesterol Calculated 102 mg/dL (0-129) HDL Cholesterol 61 mg/dL (40-60) Cholesterol/HDL Ratio 2.7 Influenza Type A Antigen Negative (NEGATIVE) Influenza Type B Antigen Negative (NEGATIVE) SARS-CoV-2 RNA (RUDY) Negative (Negative) SARS-CoV-2 Antigen (Rapid) Negative (NEGATIVE) Urine Collection Type Unknown Urine Color Yellow Urine Clarity Cloudy Urine pH 5.0 (<5.0-8.0) Urine Specific [place] >=1.030 (1.000-1.030) Urine Protein Negative mg/dL (NEG-TRACE) Urine Glucose (UA) >=1000 mg/dL (NEG) Urine Ketones (Stick) Trace mg/dL (NEG) Urine Blood Moderate (NEG) Urine Nitrite Positive (NEG) Urine Bilirubin Negative (NEG) Urine Urobilinogen Dipstick 0.2 mg/dL (0.2 mg/dL) Urine Leukocyte Esterase Negative (NEG) Urine RBC Occ /HPF (0-2) Urine WBC Occ /HPF (0-4) Urine Squamous Epithelial Cells Mod /LPF Urine Bacteria Many /HPF (0-FEW) Urine Hyaline Casts Occasional /HPF Urine Mucus Slight /LPF Urine Yeast Present /HPF Glucose (Fingerstick) 508 mg/dL (70-99) Test 12/27/20 04:30 12/27/20 07:26 12/27/20 08:15 12/27/20 11:31 Lactic Acid Level 2.2 mmol/L (0.4-2.0) 2.4 mmol/L (0.4-2.0) Glucose (Fingerstick) 383 mg/dL (70-99) 472 mg/dL (70-99) Test 12/27/20 13:59 12/27/20 15:00 12/27/20 16:37 12/27/20 17:09 Glucose (Fingerstick) 451 mg/dL (70-99) 245 mg/dL (70-99) Heparin Anti-Xa Act, Unfractionated 0.41 IU/mL (0.30-0.70) Sodium Level 142 mmol/L (136-145) Potassium Level 3.8 mmol/L (3.5-5.1) Chloride Level 102 mmol/L (98-107) Carbon Dioxide Level 30 mmol/L (21-32) Anion Gap 10 (6-14) Blood Urea Nitrogen 39 mg/dL (7-20) Creatinine 1.3 mg/dL (0.6-1.0) Estimated GFR (Cockcroft-Gault) 39.0 Glucose Level 364 mg/dL (70-99) Calcium Level 8.7 mg/dL (8.5-10.1) Magnesium Level 2.1 mg/dL (1.8-2.4) Troponin I High Sensitivity 1672 ng/L (4-50) Test 12/27/20 20:21 12/27/20 20:30 12/28/20 05:35 12/28/20 07:57 Glucose (Fingerstick) 225 mg/dL (70-99) 445 mg/dL (70-99) Heparin Anti-Xa Act, Unfractionated 0.45 IU/mL (0.30-0.70) 0.50 IU/mL (0.30-0.70) White Blood Count 8.6 x10^3/uL (4.0-11.0) Red Blood Count 4.64 x10^6/uL (3.50-5.40) Hemoglobin 13.8 g/dL (12.0-15.5) Hematocrit 43.8 % (36.0-47.0) Mean Corpuscular Volume 95 fL (79-100) Mean Corpuscular Hemoglobin 30 pg (25-35) Mean Corpuscular Hemoglobin Concent 32 g/dL (31-37) Red Cell Distribution Width 16.0 % (11.5-14.5) Platelet Count 139 x10^3/uL (140-400) Neutrophils (%) (Auto) 79 % (31-73) Lymphocytes (%) (Auto) 11 % (24-48) Monocytes (%) (Auto) 9 % (0-9) Eosinophils (%) (Auto) 0 % (0-3) Basophils (%) (Auto) 1 % (0-3) Neutrophils # (Auto) 6.8 x10^3/uL (1.8-7.7) Lymphocytes # (Auto) 1.0 x10^3/uL (1.0-4.8) Monocytes # (Auto) 0.7 x10^3/uL (0.0-1.1) Eosinophils # (Auto) 0.0 x10^3/uL (0.0-0.7) Basophils # (Auto) 0.0 x10^3/uL (0.0-0.2) Sodium Level 136 mmol/L (136-145) Potassium Level 4.3 mmol/L (3.5-5.1) Chloride Level 99 mmol/L (98-107) Carbon Dioxide Level 30 mmol/L (21-32) Anion Gap 7 (6-14) Blood Urea Nitrogen 39 mg/dL (7-20) Creatinine 1.3 mg/dL (0.6-1.0) Estimated GFR (Cockcroft-Gault) 39.0 Glucose Level 406 mg/dL (70-99) Calcium Level 8.5 mg/dL (8.5-10.1) Laboratory Tests Test 12/27/20 13:59 12/27/20 15:00 12/27/20 16:37 12/27/20 17:09 Glucose (Fingerstick) 451 mg/dL (70-99) 245 mg/dL (70-99) Heparin Anti-Xa Act, Unfractionated 0.41 IU/mL (0.30-0.70) Sodium Level 142 mmol/L (136-145) Potassium Level 3.8 mmol/L (3.5-5.1) Chloride Level 102 mmol/L (98-107) Carbon Dioxide Level 30 mmol/L (21-32) Anion Gap 10 (6-14) Blood Urea Nitrogen 39 mg/dL (7-20) Creatinine 1.3 mg/dL (0.6-1.0) Estimated GFR (Cockcroft-Gault) 39.0 Glucose Level 364 mg/dL (70-99) Calcium Level 8.7 mg/dL (8.5-10.1) Magnesium Level 2.1 mg/dL (1.8-2.4) Troponin I High Sensitivity 1672 ng/L (4-50) Test 12/27/20 20:21 12/27/20 20:30 12/28/20 05:35 12/28/20 07:57 Glucose (Fingerstick) 225 mg/dL (70-99) 445 mg/dL (70-99) Heparin Anti-Xa Act, Unfractionated 0.45 IU/mL (0.30-0.70) 0.50 IU/mL (0.30-0.70) White Blood Count 8.6 x10^3/uL (4.0-11.0) Red Blood Count 4.64 x10^6/uL (3.50-5.40) Hemoglobin 13.8 g/dL (12.0-15.5) Hematocrit 43.8 % (36.0-47.0) Mean Corpuscular Volume 95 fL (79-100) Mean Corpuscular Hemoglobin 30 pg (25-35) Mean Corpuscular Hemoglobin Concent 32 g/dL (31-37) Red Cell Distribution Width 16.0 % (11.5-14.5) Platelet Count 139 x10^3/uL (140-400) Neutrophils (%) (Auto) 79 % (31-73) Lymphocytes (%) (Auto) 11 % (24-48) Monocytes (%) (Auto) 9 % (0-9) Eosinophils (%) (Auto) 0 % (0-3) Basophils (%) (Auto) 1 % (0-3) Neutrophils # (Auto) 6.8 x10^3/uL (1.8-7.7) Lymphocytes # (Auto) 1.0 x10^3/uL (1.0-4.8) Monocytes # (Auto) 0.7 x10^3/uL (0.0-1.1) Eosinophils # (Auto) 0.0 x10^3/uL (0.0-0.7) Basophils # (Auto) 0.0 x10^3/uL (0.0-0.2) Sodium Level 136 mmol/L (136-145) Potassium Level 4.3 mmol/L (3.5-5.1) Chloride Level 99 mmol/L (98-107) Carbon Dioxide Level 30 mmol/L (21-32) Anion Gap 7 (6-14) Blood Urea Nitrogen 39 mg/dL (7-20) Creatinine 1.3 mg/dL (0.6-1.0) Estimated GFR (Cockcroft-Gault) 39.0 Glucose Level 406 mg/dL (70-99) Calcium Level 8.5 mg/dL (8.5-10.1) Assessment/Plan Assessment/Plan IMP TRICIA-CR OF 1.5-NO CKD CHF-PROB DIASTOLIC/OSMOTIC VASCULAR CONGESTION HYPERGLYCEMIA-NO KETOTIC ELEVATED TROPONIN LEVEL MULTIPLE FALL HX T 10 FX LE EDEMA POSSIBLE BILATERAL PRETIBIAL AREA CELLULITIS PLAN DIURESIS ANTIBIOTICS CONTROL BG WILL FOLLOW CARLTON BYRNE MD Dec 28, 2020 11:58
[2020-12-28] MEDS: FUROSEMIDE 40 MG/4 ML VIAL. IVP SCH ×2 (12:14→21:34)
[2020-12-28] MEDS: PIPERACILLIN/TAZOBACTAM 3.375 GM in IV NORMAL SALINE 50ML 50 ML IV SCH ×2 (12:14→17:32)
--- NOTE | 2020-12-28 12:21 | PDOC ---
Provider Note Date of Service: DATE: 12/28/20 TIME: 12:17 Provider Note This is an 85 yo female who presented secondary to weakness, fall, and shortness of breath.Patient reports she had been more weak for the last week or so. Tried to get up from her chair yesterday evening and fell due to weakness in her legs. She denies hitting her head or any LOC. Denies any precipitating dizziness or lightheadedness. Does have a history of hypertension and hyperlipidemia. Troponin was elevated. denies back pain back is flat, no echymosis LUNDY CT with Acute fracture in the T10 vertebral body with apex posterior angulation and 1 cm anterior diastases MRI ordered. TLSO ordered, bedrest D/W RN Justifications for Admission Other Justification Symptomatic cholelithiasis PAVAN BURNETT MD Dec 28, 2020 12:21
[2020-12-28 14:58] VITALS: BP 129/63
[2020-12-28] MEDS: VANCOMYCIN PER PHARMACY MC PRN (15:04)
--- NOTE | 2020-12-28 16:51 | RAD ---
EXAM: Thoracic spine MRI without contrast. HISTORY: Compression fracture. TECHNIQUE: Multiplanar, multisequence magnetic resonance imaging of the thoracic spine was performed without contrast. COMPARISON: CT dated 12/27/2020. FINDINGS: The manager military images of the brain and spine demonstrate cerebral and cerebellar volume loss. Th ere are white matter changes likely due to chronic small vessel disease. There is sphenoid sinus muco laith thickening. There is multilevel degenerative endplate remodeling, osteophytosis facet arthropathy throughout the cervical spine, not formally assessed on this exam. There is thoracic kyphosis. There are multiple osseous hemangiomas. There is degenerative endplate re modeling with anterior osteophytosis. Throughout the thoracic spine. There are multiple endplate Schm orl's nodes. There is an acute displaced fracture of T10. There is fluid within the fracture line along the inferi or aspect of the vertebral body. There is no fracture line extension to the posterior elements or ret ropulsion of the cortex. There is a mild to moderate chronic compression fracture with large superior endplate Schmorl's node at T12 and mild chronic compression fracture with superior endplate Schmorl' s node at L1. There is chronic mild decreased anterior vertebral body height at T8. No thoracic spinal cord lesion is seen. There are small moderate pleural effusions with bilateral low er lobe airspace disease. There is cardiomegaly. At T6-T7, there is a posterior central disc protrusion with slight superior and inferior extrusion wh ich deforms the ventral aspect of spinal cord. There is there is minimal central canal stenosis at th is level. No spinal cord signal abnormality is seen. At T10-T9, there is a minimal shallow left paracentral disc protrusion. There is no stenosis. At T11-T12, there is slight retropulsion of the T12 cortex. There is no stenosis. IMPRESSION: 1. Acute displaced fracture through the inferior aspect of T10. There is distraction along the fractu re line. No retropulsion of the cortex or fracture line extension to the posterior elements is seen. 2. Chronic compression fractures with superior endplate Schmorl's nodes at T12 and L1 and chronic mil d decreased vertebral body height at T8. 3. Degenerative change throughout the thoracic spine, described in detail above. This includes a disc protrusion with superimposed extrusion at T6-T7 resulting in deformation of the spinal cord. No spin al cord lesion is seen. Electronically signed by: Chayo Lemus MD (12/28/2020 4:49 PM) [id number]
[2020-12-28] MEDS ORDERED: ACETAMINOPHEN 325 MG TABLET. PO PRN (17:00)
[2020-12-28] MEDS: HYDROcodone/APAP 5/325MG 1 TAB TABLET PO PRN ×2 (17:32→21:32)
[2020-12-28] MEDS: INSULIN GLARGINE SYRINGE. SQ SCH (17:36)
[2020-12-28 19:00] VITALS: BP 120/59
[2020-12-28 22:46] VITALS: BP 118/57
[2020-12-29] MEDS: PIPERACILLIN/TAZOBACTAM 3.375 GM in IV NORMAL SALINE 50ML 50 ML IV SCH ×5 (00:56→23:51)
--- NOTE | 2020-12-29 02:22 | EKG ---
[facility] [address] [place] [id number] Test Date: 2020-12-27 Test Time: 00:21:16 Pat Name: JOSAFAT SAAVEDRA Department: Room: 4 Gender: F [employer]: : [id number] Requested By: JESUS MOY Order Number: [id number] Reading MD: Froy Wilkins MD Measurements Intervals Thelma Rate: 87 P: AL: QRS: 28 QRSD: 86 T: 38 QT: 376 QTc: 453 Interpretive Statements SR NON-SPECIFIC ST/T CHANGES Electronically Signed On 01-02-2021 9:48:41 SENIOR ACTU[employer] ANALYST by Froy Wilkins MD
[2020-12-29 02:55] VITALS: BP 127/59
[2020-12-29 03:57] LABS: BASO # 0.1 x10^3/uL (0.0-0.2); BASO % 1 % (0-3); EOS % 0 % (0-3); HEMATOCRIT 44.8 % (36.0-47.0); HEMOGLOBIN 14.3 g/dL (12.0-15.5); LYMPH # 1.1 x10^3/uL (1.0-4.8); LYMPH % 12 % (24-48); MEAN CORPUSCULAR HEMOGLOBIN 31 pg (25-35); MEAN CORPUSCULAR HGB CONC 32 g/dL (31-37); MEAN CORPUSCULAR VOLUME 96 fL (79-100); MONO # 0.8 x10^3/uL (0.0-1.1); MONO % 9 % (0-9); NEUT # 6.8 x10^3/uL (1.8-7.7); NEUT % 78 % (31-73); PLATELET COUNT 144 x10^3/uL (140-400); RED BLOOD COUNT 4.68 x10^6/uL (3.50-5.40); RED CELL DISTRIBUTION WIDTH 15.9 % (11.5-14.5); WHITE BLOOD COUNT 8.8 x10^3/uL (4.0-11.0)
[2020-12-29 04:02] LABS: CALCIUM 8.5 mg/dL (8.5-10.1); CREATININE 1.6 mg/dL (0.6-1.0); GFR 30.7; MAGNESIUM 2.2 mg/dL (1.8-2.4); POTASSIUM 4.4 mmol/L (3.5-5.1)
[2020-12-29 04:09] LABS: VANC TR 18.3 mcg/mL (10.0-20.0)
[2020-12-29] MEDS: VANCOMYCIN 1.75 GM in IV NORMAL SALINE 500ML BAG 500 ML IV SCH (04:19)
[2020-12-29] MEDS: VANCOMYCIN PER PHARMACY MC PRN ×2 (04:23→09:15)
--- NOTE | 2020-12-29 04:23 | NUR ---
Pharmacy Vancomycin Dosing Note S:Consulted to monitor and dose vancomycin started 12/27/20. O:JOSAFAT SAAVEDRA is a 85 year old F with Bacteremia Sepsis Pneumonia . Height: 5 feet, 8 inches Weight: 117.5 kg [place] Body Weight: 63.90 Adjusted Body Weight: 85.34 Dosing Weight: Actual Other Antibiotics: ZOSYN 3.375G IV Q6HRS LABS: Last BUN: 39 Last Creatinine: 1.3 Creatinine Clearance: 43 mL/min Last WBC: 8.6 Last Procalcitonin: - Tmax (past 24 hours): 98.8 Microbiology: BLOOD CX (12/27): GPC IN 2/4 BOTTLES, ONE SET URINE CX (12/27): E.COLI I/O: 505/1500 Drug Levels: Last Trough level: 18.3 on 12/29/20 at 0330 Last dose given 12/28/20 at 0445 Vancomycin Dosing: Loading Dose: 2000 mg x1 Dosing Weight: Actual Target Trough: 15-20 A: Based on: TROUGH P: 1. Continue Vancomycin 1750 mg IV q24h 2. Follow up Trough level IF NEEDED 3. Pharmacy will continue to monitor, follow and adjust therapy as needed. PAVAN PAVON RPH, 12/29/20 0423 Signed: 12/29/20 at 0424 by PAVAN PAVON RPH PHA
[2020-12-29 07:00] VITALS: BP 131/60
[2020-12-29] MEDS: METOPROLOL TART IMMED RELEASE 25 MG TABLET. PO SCH ×3 (08:28→22:17)
[2020-12-29] MEDS: ATORVASTATIN CALCIUM 20 MG TABLET PO SCH (08:28)
[2020-12-29] MEDS: LACTOBACILLUS RHAMNOSUS GG 1 CAPSULE. PO SCH ×2 (08:28→20:45)
[2020-12-29] MEDS: ASPIRIN ENTERIC COATED 81 MG TABLET.DR. PO SCH (08:28)
[2020-12-29] MEDS: FUROSEMIDE 40 MG/4 ML VIAL. IVP SCH ×2 (08:29→15:16)
[2020-12-29] MEDS: AMMONIUM LACTATE 12% TOPICAL LOTION 225GM BOTTLE. TP SCH ×2 (08:33→20:47)
[2020-12-29] MEDS: NYSTATIN TOPICAL POWDER 15GM BOTTLE. TP SCH ×2 (08:33→20:47)
[2020-12-29] MEDS: INSULIN LISPRO 300 UNITS/3 ML VIAL. SQ SCH ×6 (08:36→17:18)
--- NOTE | 2020-12-29 10:32 | PDOC ---
[employer] PROGRESS NOTE Date of Service DOS: DATE: 12/29/20 TIME: 10:30 Chief Complaint Chief Complaint Congestive Heart Failure Elevated Troponin Level Generalized weakness Hyperglycemia due to DM Multiple Fall Status UTI History of Present Illness History of Present Illness 12/29/2020 Patient seen and examined, in NAD, patient states feeling mildly better, but still weak Patient is on 2 L oxygen per NC Antibiotics Hanging (Zosyn and Doxycycline) Heparin Drip hanging per cardiology Discussed with RN, chart reviewed. 12/28/2020 Patient was seen and examined, in NAD. Patient is on 2 L oxygen per NC Antibiotics hanging Heparin Drip handing per cardiology Patient Troponin level still high, but trending down Discussed with RN, chart reviewed. Vitals/I&O Vitals/I&O: Vital Signs Date Time Temp Pulse Resp B/P (MAP) Pulse Ox O2 Delivery O2 Flow Rate FiO2 12/29/20 08:28 63 131/60 12/29/20 08:00 Nasal Cannula 2.0 12/29/20 07:00 97.5 20 97 97.5 I & O 12/28/20 12/28/20 12/29/20 15:00 23:00 07:00 Intake Total 240 ml 812 ml 600 ml Output Total 1000 ml 150 ml Balance 240 ml -188 ml 450 ml Physical Exam General: Alert, Oriented X3, Cooperative, No acute distress Heart: Regular rate Lungs: Clear Abdomen: Normal bowel sounds Extremities: No clubbing, Other (3+ LE EDEMA) Skin: No breakdown, Other (EXCORIATED SKIN IN PRETIBIAL AREAS BILATERALLY WITH ERYTHEMA) Labs Labs: Laboratory Tests Test 12/28/20 12:04 12/28/20 17:10 12/28/20 20:04 12/29/20 03:50 Glucose (Fingerstick) 431 mg/dL (70-99) 279 mg/dL (70-99) 252 mg/dL (70-99) White Blood Count 8.8 x10^3/uL (4.0-11.0) Red Blood Count 4.68 x10^6/uL (3.50-5.40) Hemoglobin 14.3 g/dL (12.0-15.5) Hematocrit 44.8 % (36.0-47.0) Mean Corpuscular Volume 96 fL (79-100) Mean Corpuscular Hemoglobin 31 pg (25-35) Mean Corpuscular Hemoglobin Concent 32 g/dL (31-37) Red Cell Distribution Width 15.9 % (11.5-14.5) Platelet Count 144 x10^3/uL (140-400) Neutrophils (%) (Auto) 78 % (31-73) Lymphocytes (%) (Auto) 12 % (24-48) Monocytes (%) (Auto) 9 % (0-9) Eosinophils (%) (Auto) 0 % (0-3) Basophils (%) (Auto) 1 % (0-3) Neutrophils # (Auto) 6.8 x10^3/uL (1.8-7.7) Lymphocytes # (Auto) 1.1 x10^3/uL (1.0-4.8) Monocytes # (Auto) 0.8 x10^3/uL (0.0-1.1) Eosinophils # (Auto) 0.0 x10^3/uL (0.0-0.7) Basophils # (Auto) 0.1 x10^3/uL (0.0-0.2) Sodium Level 138 mmol/L (136-145) Potassium Level 4.4 mmol/L (3.5-5.1) Chloride Level 98 mmol/L (98-107) Carbon Dioxide Level 34 mmol/L (21-32) Anion Gap 6 (6-14) Blood Urea Nitrogen 43 mg/dL (7-20) Creatinine 1.6 mg/dL (0.6-1.0) Estimated GFR (Cockcroft-Gault) 30.7 Glucose Level 318 mg/dL (70-99) Calcium Level 8.5 mg/dL (8.5-10.1) Magnesium Level 2.2 mg/dL (1.8-2.4) Vancomycin Level Trough 18.3 mcg/mL (10.0-20.0) Vancomycin Last Dose Date [id number] Vancomycin Last Dose Time 399 Test 12/29/20 05:40 12/29/20 08:18 Heparin Anti-Xa Act, Unfractionated 0.33 IU/mL (0.30-0.70) Glucose (Fingerstick) 340 mg/dL (70-99) Assessment and Plan Assessmemt and Plan Problems Medical Problems: (1) Congestive heart failure Status: Acute (2) Elevated troponin level Status: Acute (3) Generalized weakness Status: Acute (4) Hyperglycemia due to diabetes mellitus Status: Acute (5) Multiple falls Status: Acute (6) Requires supplemental oxygen Status: Acute (7) Respiratory failure with hypoxia Status: Acute (8) T10 vertebral fracture Status: Acute (9) UTI (urinary tract infection) Status: Acute PLAN: Continue Cardiac Monitoring Serial Cardiac Enzymes Serial EKG Continue Heparin Drip per cardiology Appreciate Cardiology input Continue Antibiotics (Zosyn and Doxycycline) for UTI Appreciate Nephrology's Input Trend Labs Home Meds DVT Prophylaxis Full Code Comment Review of Relevant I have reviewed the following items irving (where applicable) has been applied. Medications: Current Medications Medications (Trade) Dose Ordered Sig/Glenn Route PRN Reason Start Time Stop Time Status Last Admin Dose Admin Vancomycin HCl (Vancomycin Trough Level) 1 each 1X ONCE MC 12/29/20 03:30 12/29/20 03:31 DC 12/29/20 03:30 Insulin Human Lispro (HumaLOG) 10 units 1X ONCE SQ 12/28/20 10:45 12/28/20 10:47 DC 12/28/20 10:45 Piperacillin Sod/ Tazobactam Sod 3.375 gm/Sodium Chloride 50 ml @ 100 mls/hr Q6HRS IV 12/28/20 12:00 12/29/20 05:50 Furosemide (Lasix) 40 mg BID IVP 12/28/20 12:30 12/29/20 08:29 Insulin Human Lispro (HumaLOG) 10 units 1X ONCE SQ 12/28/20 12:30 12/28/20 12:31 DC 12/28/20 12:25 Insulin Human Lispro (HumaLOG) 10 units 1X ONCE SQ 12/28/20 13:15 12/28/20 13:16 DC 12/28/20 13:18 Insulin Glargine (Lantus Syringe) 20 unit QHS SQ 12/28/20 16:01 12/28/20 17:36 Insulin Human Lispro (HumaLOG) 5 units TIDWMEALS SQ 12/28/20 17:00 12/29/20 08:37 Acetaminophen/ Hydrocodone Bitart (Lortab 5/325) 1 tab PRN Q4HRS PRN PO MOD TO SEVERE PAIN 12/28/20 17:00 12/28/20 21:32 Justifications for Admission Other Justification Symptomatic cholelithiasis CASTLENIAL K III DO Dec 29, 2020 10:32
[2020-12-29 11:00] VITALS: BP 123/60
--- NOTE | 2020-12-29 11:08 | CONS ---
DATE OF CONSULTATION: 12/29/2020 REFERRING PHYSICIAN: Dr. Vieira. REASON FOR CONSULTATION: Bacteremia. HISTORY OF PRESENT ILLNESS: An 85-year-old female brought from home with generalized weakness and multiple recurrent falls over the last couple of months. The patient is a poor historian. She was hypoxic, requiring supplemental oxygen. She did complain of back pain. Temperature was 99.6. White count was normal. Creatinine was 1.5. The patient underwent UA, which showed leukocyte esterase negative, nitrite positive, occasional wbc's. SARS-COVID and influenza screen negative. The patient had urine culture done, which showed E. coli. Blood cultures showed 2/4 positive for gram-positive cocci in clusters. On 12/28/2020, the patient was on IV vancomycin and Zosyn. ID consultation has been requested for antibiotic management. PAST MEDICAL HISTORY: Hypertension, osteoarthritis, diabetes. PAST SURGICAL HISTORY: Hysterectomy. FAMILY HISTORY: As per HPI. SOCIAL HISTORY: No alcohol, no drugs, no smoking. Lives with family. CURRENT MEDICATIONS: IV vancomycin and Zosyn. Other medications reviewed in medication list. REVIEW OF SYSTEMS: Fatigue with shortness of breath, cough, edema, constipation, back pain, generalized weakness, dry skin. PHYSICAL EXAMINATION: VITAL SIGNS: Temperature 97.5, pulse 63, respiratory rate 20, blood pressure 131/60, oxygen saturation 97% on 2 liters O2 by nasal cannula. GENERAL: Alert, oriented x 3 female, propped up in bed, in no acute distress, on nasal O2. HEENT: Normocephalic, atraumatic. Oral mucosa moist, no thrush. NECK: Supple. LUNGS: Crackles present bilaterally. No accessory muscle use. HEART: S1, S2. No murmurs. ABDOMEN: Soft, obese. Bowel sounds present. EXTREMITIES: Lower extremity edema, dry scaly skin and chronic venous stasis changes present. No warmth. NEUROLOGIC: Alert and oriented x 3, grossly nonfocal. PSYCHIATRIC: Calm and cooperative. MUSCULOSKELETAL: Changes suggestive of DJD.. LABORATORY DATA: WBC 8.8, hemoglobin 14.3, hematocrit 44.8, platelets 144. Sodium 138, potassium 4.4, chloride 98, bicarbonate 34, BUN 43, creatinine 1.6, glucose 318. UA shows nitrite positive, occasional wbc's. Vancomycin is 18.3. SARS-COVID negative. Influenza screen negative. MICROBIOLOGY: Blood culture 2/4 bottles present positive on 12/25/2020. Urine culture, E. coli. DIAGNOSTICS: Thoracic MRI, T10 fracture. Thoracic spine CT noted. Lumbar spine CT noted. Cervical spine CT noted. Head CT noted. Chest x-ray noted. IMPRESSION: 1. Bacteremia, gram-positive cocci present on admission on 12/27/2020 2. Generalized weakness Multiple falls for a couple of months with a T10 fracture 3. Acute kidney injury. 4. Congestive heart failure. 5. Chronic venous stasis. 6. Possible urinary tract infection. 7. Possible mild superimposed cellulitis with underlying chronic venous stasis. RECOMMENDATIONS: 1. Discontinue IV vancomycin. 2. Start daptomycin. 3. Continue Zosyn. 4. Local wound care. 5. Repeat blood cultures in a.m. 6. Monitor labs and cultures. 7. Continue supportive care. 8. Pain control per primary. Thank you for allowing me to participate in this patient's care. If you have any questions, do not hesitate to contact me. GEOVANNA DR: Alexy TID: [id number] JOE
--- NOTE | 2020-12-29 11:52 | PDOC ---
Renal-Progress Notes Subjective Notes Notes NO NEW COMPLAINTS History of Present Illness Hx of present illness STABLE Vitals Vitals Vital Signs Date Time Temp Pulse Resp B/P (MAP) Pulse Ox O2 Delivery O2 Flow Rate FiO2 12/29/20 11:00 97.7 64 20 123/60 (81) 93 Nasal Cannula 2.0 97.7 Weight Weight [ ] I.O. Intake and Output Intake and Output 12/29/20 07:00 Intake Total 1652 ml Output Total 1150 ml Balance 502 ml Intake Oral 290 ml IV Total 550 ml Other 812 ml Output Urine Total 1150 ml Labs Labs Laboratory Tests Test 12/28/20 12:04 12/28/20 17:10 12/28/20 20:04 12/29/20 03:50 Glucose (Fingerstick) 431 mg/dL (70-99) 279 mg/dL (70-99) 252 mg/dL (70-99) White Blood Count 8.8 x10^3/uL (4.0-11.0) Red Blood Count 4.68 x10^6/uL (3.50-5.40) Hemoglobin 14.3 g/dL (12.0-15.5) Hematocrit 44.8 % (36.0-47.0) Mean Corpuscular Volume 96 fL (79-100) Mean Corpuscular Hemoglobin 31 pg (25-35) Mean Corpuscular Hemoglobin Concent 32 g/dL (31-37) Red Cell Distribution Width 15.9 % (11.5-14.5) Platelet Count 144 x10^3/uL (140-400) Neutrophils (%) (Auto) 78 % (31-73) Lymphocytes (%) (Auto) 12 % (24-48) Monocytes (%) (Auto) 9 % (0-9) Eosinophils (%) (Auto) 0 % (0-3) Basophils (%) (Auto) 1 % (0-3) Neutrophils # (Auto) 6.8 x10^3/uL (1.8-7.7) Lymphocytes # (Auto) 1.1 x10^3/uL (1.0-4.8) Monocytes # (Auto) 0.8 x10^3/uL (0.0-1.1) Eosinophils # (Auto) 0.0 x10^3/uL (0.0-0.7) Basophils # (Auto) 0.1 x10^3/uL (0.0-0.2) Sodium Level 138 mmol/L (136-145) Potassium Level 4.4 mmol/L (3.5-5.1) Chloride Level 98 mmol/L (98-107) Carbon Dioxide Level 34 mmol/L (21-32) Anion Gap 6 (6-14) Blood Urea Nitrogen 43 mg/dL (7-20) Creatinine 1.6 mg/dL (0.6-1.0) Estimated GFR (Cockcroft-Gault) 30.7 Glucose Level 318 mg/dL (70-99) Calcium Level 8.5 mg/dL (8.5-10.1) Magnesium Level 2.2 mg/dL (1.8-2.4) Vancomycin Level Trough 18.3 mcg/mL (10.0-20.0) Vancomycin Last Dose Date [id number] Vancomycin Last Dose Time 0400 Test 12/29/20 05:40 12/29/20 08:18 Heparin Anti-Xa Act, Unfractionated 0.33 IU/mL (0.30-0.70) Glucose (Fingerstick) 340 mg/dL (70-99) Micro Micro Microbiology 12/27/20 Urine Culture - Final, Complete 12/27/20 Antimicrobic Susceptibility - Final, Complete 12/27/20 Blood Culture - Final, Complete Review of Systems Constitutional: yes: alert, oriented Ears/Nose/Throat: Yes: no symptom reported Eyes: Yes: no symptom reported Pulmonary: Yes dyspnea Cardiovascular: Yes no symptom reported Gastrointestional: Yes: no symptom reported Musculoskeletal: Yes: no symptom reported Skin: Yes no symptom reported Psychiatric/Neurological: Yes: no symptom reported Endocrine: Yes: no symptom reported Physical Exam General Appearance: no apparent distress Respiratory: bilateral CTA Heart: S1S2 Abdomen: soft, bowel sounds present Genitourinary: bladder flat Extremities: pulses present Neurology: alert, oriented, follow commands Musculoskeletal: Osteoarthritis Assessment Assessment IMP TRICIA-CR UP TO 1.9-PROB HAS CKD CHF-PROB DIASTOLIC/OSMOTIC VASCULAR CONGESTION HYPERGLYCEMIA-NO KETOTIC ELEVATED TROPONIN LEVEL MULTIPLE FALL HX T 10 FX LE EDEMA POSSIBLE BILATERAL PRETIBIAL AREA CELLULITIS PLAN DIURESIS NEEDS MORE NEG FLUID BALANCE ANTIBIOTICS CONTROL BG WILL FOLLOW CARLTON BYRNE MD Dec 29, 2020 11:52
[2020-12-29] MEDS ORDERED: DAPTOmycin (GENERIC) IVPB 550 MG in IV NORMAL SALINE 50ML 50 ML IV SCH (12:00)
--- NOTE | 2020-12-29 12:20 | PDOC ---
NICKIE MCGILL LONGITUDINAL FLOAT OPERATOR 12/29/20 1220: CARDIO Progress Notes Date and Time Date of Service 12/29/2020 Time of Evaluation 1200 Subjective Subjective: No Chest Pain, No shortness of breath, No Palpitations Vitals Vitals Vital Signs Date Time Temp Pulse Resp B/P (MAP) Pulse Ox O2 Delivery O2 Flow Rate FiO2 12/29/20 11:00 97.7 64 20 123/60 (81) 93 Nasal Cannula 2.0 97.7 Weight Weight [ ] Input and Output Intake and Output Intake and Output 12/29/20 07:00 Intake Total 1652 ml Output Total 1150 ml Balance 502 ml Intake Oral 290 ml IV Total 550 ml Other 812 ml Output Urine Total 1150 ml Laboratory Labs Laboratory Tests Test 12/28/20 17:10 12/28/20 20:04 12/29/20 03:50 12/29/20 05:40 Glucose (Fingerstick) 279 mg/dL (70-99) 252 mg/dL (70-99) White Blood Count 8.8 x10^3/uL (4.0-11.0) Red Blood Count 4.68 x10^6/uL (3.50-5.40) Hemoglobin 14.3 g/dL (12.0-15.5) Hematocrit 44.8 % (36.0-47.0) Mean Corpuscular Volume 96 fL (79-100) Mean Corpuscular Hemoglobin 31 pg (25-35) Mean Corpuscular Hemoglobin Concent 32 g/dL (31-37) Red Cell Distribution Width 15.9 % (11.5-14.5) Platelet Count 144 x10^3/uL (140-400) Neutrophils (%) (Auto) 78 % (31-73) Lymphocytes (%) (Auto) 12 % (24-48) Monocytes (%) (Auto) 9 % (0-9) Eosinophils (%) (Auto) 0 % (0-3) Basophils (%) (Auto) 1 % (0-3) Neutrophils # (Auto) 6.8 x10^3/uL (1.8-7.7) Lymphocytes # (Auto) 1.1 x10^3/uL (1.0-4.8) Monocytes # (Auto) 0.8 x10^3/uL (0.0-1.1) Eosinophils # (Auto) 0.0 x10^3/uL (0.0-0.7) Basophils # (Auto) 0.1 x10^3/uL (0.0-0.2) Sodium Level 138 mmol/L (136-145) Potassium Level 4.4 mmol/L (3.5-5.1) Chloride Level 98 mmol/L (98-107) Carbon Dioxide Level 34 mmol/L (21-32) Anion Gap 6 (6-14) Blood Urea Nitrogen 43 mg/dL (7-20) Creatinine 1.6 mg/dL (0.6-1.0) Estimated GFR (Cockcroft-Gault) 30.7 Glucose Level 318 mg/dL (70-99) Calcium Level 8.5 mg/dL (8.5-10.1) Magnesium Level 2.2 mg/dL (1.8-2.4) Vancomycin Level Trough 18.3 mcg/mL (10.0-20.0) Vancomycin Last Dose Date Vancomycin Last Dose Time 040 Heparin Anti-Xa Act, Unfractionated 0.33 IU/mL (0.30-0.70) Test 12/29/20 08:18 12/29/20 11:55 Glucose (Fingerstick) 340 mg/dL (70-99) 352 mg/dL (70-99) Microbiology Micro Microbiology 12/27/20 Urine Culture - Final, Complete 12/27/20 Antimicrobic Susceptibility - Final, Complete 12/27/20 Blood Culture - Final, Complete Review of Systems Constitutional: yes: alert, oriented Ears/Nose/Throat: Yes: no symptom reported Eyes: Yes: no symptom reported Pulmonary: Yes dyspnea Cardiovascular: Yes no symptom reported Gastrointestional: Yes: no symptom reported Musculoskeletal: Yes: no symptom reported Skin: Yes no symptom reported Psychiatric/Neurological: Yes: no symptom reported Endocrine: Yes: no symptom reported Physical Exam HEENT: Neck Supple W Full Motion Chest: Symmetric LUNGS: Clear to Auscultation Heart: RRR (SR) Abdomen: Soft N/T, Other (obese ) Extremities: Other (3+ bilateral LE edema. Chronic venous stasis changes) Neurology: alert, oriented, follow commands Assessment Assessment 1. Weakness, recurrent falls; CT with acute T10 fracture along with chronic T12 and L1 fractures. No precipitating dizziness or LOC 2. NSTEMI; initial high sensitivity trop peak 5432. Most probable type II, demand ischemia with multiple culprits noted. EKG without significant acute changes 3. Acute on chronic diastolic CHF; echo with preserved LV systolic function. improved s/p IV Lasix 4. Diabetes, II with hyperglycemia 5. Lactic acidosis, bacteremia; BC with GPC per ID 6. Accelerated hypertension; now controlled 7. TRICIA: nephrology following 8. UTI 9. Self care deficit 10. PSVT Recommendations ASA, statin. Start on plavix. Stop hep drip. Continue metoprolol. Diuresis with monitoring of renal function. x1 zaroxolyn continue lasix Will plan for outpatient ischemic evaluation Supportive care Justicifation of Admission Dx: Justifications for Admission: Justification of Admission Dx: Yes NELLA CHARLES MD 12/30/20 1156: CARDIO Progress Notes Assessment Assessment Patient seen and examined 12/29/2020. Agree with TAPPET ADJUSTER's assessment and plan. Non-STEMI most probably demand ischemia/type II -troponin levels trending down Continue heparin infusion per protocol 2D echo showed normal LV systolic function Acute on chronic diastolic heart failure better compensated with diuresis We will consider ischemic evaluation as an outpatient NICKIE MCGILL APRN Dec 29, 2020 12:20 NELLA CHARLES MD Dec 30, 2020 11:56
[2020-12-29] MEDS ORDERED: metOLazone 2.5 MG TABLET PO ONE (12:30)
--- NOTE | 2020-12-29 14:00 | NUR ---
Spoke with Dr. Sullivan for clarification on ambulation orders, he stated patient can get out of bed with brace on.
--- NOTE | 2020-12-29 14:36 | PDOC ---
PROGRESS NOTES Date of Service DATE: 12/29/20 TIME: 14:35 Subjective Subjective resting in bed c/o back pain with movement, brace on Objective Objective Vital Signs Date Time Temp Pulse Resp B/P (MAP) Pulse Ox O2 Delivery O2 Flow Rate FiO2 12/29/20 11:00 97.7 64 20 123/60 (81) 93 Nasal Cannula 2.0 97.7 Intake and Output 12/29/20 06:59 Intake Total 1652 ml Output Total 1150 ml Balance 502 ml Intake Oral 290 ml IV Total 550 ml Other 812 ml Output Urine Total 1150 ml Physical Exam General: Cooperative, No acute distress MUSCULOSKELETAL: Other (TLSO on, LUNDY) Assessment Assessment Problems Medical Problems: (1) Congestive heart failure Status: Acute (2) Elevated troponin level Status: Acute (3) Generalized weakness Status: Acute (4) Hyperglycemia due to diabetes mellitus Status: Acute (5) Multiple falls Status: Acute (6) Requires supplemental oxygen Status: Acute (7) Respiratory failure with hypoxia Status: Acute (8) T10 vertebral fracture Status: Acute (9) UTI (urinary tract infection) Status: Acute Plan Plan of Care ok to get OOB with brace on consult Dr. Zaragoza will follow Comment Review of Relevant I have reviewed the following items irving (where applicable) has been applied. Labs Laboratory Tests Test 12/27/20 15:00 12/27/20 16:37 12/27/20 17:09 12/27/20 20:21 Heparin Anti-Xa Act, Unfractionated 0.41 IU/mL (0.30-0.70) Sodium Level 142 mmol/L (136-145) Potassium Level 3.8 mmol/L (3.5-5.1) Chloride Level 102 mmol/L (98-107) Carbon Dioxide Level 30 mmol/L (21-32) Anion Gap 10 (6-14) Blood Urea Nitrogen 39 mg/dL (7-20) Creatinine 1.3 mg/dL (0.6-1.0) Estimated GFR (Cockcroft-Gault) 39.0 Glucose Level 364 mg/dL (70-99) Calcium Level 8.7 mg/dL (8.5-10.1) Magnesium Level 2.1 mg/dL (1.8-2.4) Troponin I High Sensitivity 1672 ng/L (4-50) Glucose (Fingerstick) 245 mg/dL (70-99) 225 mg/dL (70-99) Test 12/27/20 20:30 12/28/20 05:35 12/28/20 07:57 12/28/20 12:04 Heparin Anti-Xa Act, Unfractionated 0.45 IU/mL (0.30-0.70) 0.50 IU/mL (0.30-0.70) White Blood Count 8.6 x10^3/uL (4.0-11.0) Red Blood Count 4.64 x10^6/uL (3.50-5.40) Hemoglobin 13.8 g/dL (12.0-15.5) Hematocrit 43.8 % (36.0-47.0) Mean Corpuscular Volume 95 fL (79-100) Mean Corpuscular Hemoglobin 30 pg (25-35) Mean Corpuscular Hemoglobin Concent 32 g/dL (31-37) Red Cell Distribution Width 16.0 % (11.5-14.5) Platelet Count 139 x10^3/uL (140-400) Neutrophils (%) (Auto) 79 % (31-73) Lymphocytes (%) (Auto) 11 % (24-48) Monocytes (%) (Auto) 9 % (0-9) Eosinophils (%) (Auto) 0 % (0-3) Basophils (%) (Auto) 1 % (0-3) Neutrophils # (Auto) 6.8 x10^3/uL (1.8-7.7) Lymphocytes # (Auto) 1.0 x10^3/uL (1.0-4.8) Monocytes # (Auto) 0.7 x10^3/uL (0.0-1.1) Eosinophils # (Auto) 0.0 x10^3/uL (0.0-0.7) Basophils # (Auto) 0.0 x10^3/uL (0.0-0.2) Sodium Level 136 mmol/L (136-145) Potassium Level 4.3 mmol/L (3.5-5.1) Chloride Level 99 mmol/L (98-107) Carbon Dioxide Level 30 mmol/L (21-32) Anion Gap 7 (6-14) Blood Urea Nitrogen 39 mg/dL (7-20) Creatinine 1.3 mg/dL (0.6-1.0) Estimated GFR (Cockcroft-Gault) 39.0 Glucose Level 406 mg/dL (70-99) Calcium Level 8.5 mg/dL (8.5-10.1) Glucose (Fingerstick) 445 mg/dL (70-99) 431 mg/dL (70-99) Test 12/28/20 17:10 12/28/20 20:04 12/29/20 03:50 12/29/20 05:40 Glucose (Fingerstick) 279 mg/dL (70-99) 252 mg/dL (70-99) White Blood Count 8.8 x10^3/uL (4.0-11.0) Red Blood Count 4.68 x10^6/uL (3.50-5.40) Hemoglobin 14.3 g/dL (12.0-15.5) Hematocrit 44.8 % (36.0-47.0) Mean Corpuscular Volume 96 fL (79-100) Mean Corpuscular Hemoglobin 31 pg (25-35) Mean Corpuscular Hemoglobin Concent 32 g/dL (31-37) Red Cell Distribution Width 15.9 % (11.5-14.5) Platelet Count 144 x10^3/uL (140-400) Neutrophils (%) (Auto) 78 % (31-73) Lymphocytes (%) (Auto) 12 % (24-48) Monocytes (%) (Auto) 9 % (0-9) Eosinophils (%) (Auto) 0 % (0-3) Basophils (%) (Auto) 1 % (0-3) Neutrophils # (Auto) 6.8 x10^3/uL (1.8-7.7) Lymphocytes # (Auto) 1.1 x10^3/uL (1.0-4.8) Monocytes # (Auto) 0.8 x10^3/uL (0.0-1.1) Eosinophils # (Auto) 0.0 x10^3/uL (0.0-0.7) Basophils # (Auto) 0.1 x10^3/uL (0.0-0.2) Sodium Level 138 mmol/L (136-145) Potassium Level 4.4 mmol/L (3.5-5.1) Chloride Level 98 mmol/L (98-107) Carbon Dioxide Level 34 mmol/L (21-32) Anion Gap 6 (6-14) Blood Urea Nitrogen 43 mg/dL (7-20) Creatinine 1.6 mg/dL (0.6-1.0) Estimated GFR (Cockcroft-Gault) 30.7 Glucose Level 318 mg/dL (70-99) Calcium Level 8.5 mg/dL (8.5-10.1) Magnesium Level 2.2 mg/dL (1.8-2.4) Vancomycin Level Trough 18.3 mcg/mL (10.0-20.0) Vancomycin Last Dose Date Vancomycin Last Dose Time 040 Heparin Anti-Xa Act, Unfractionated 0.33 IU/mL (0.30-0.70) Test 12/29/20 08:18 12/29/20 11:55 Glucose (Fingerstick) 340 mg/dL (70-99) 352 mg/dL (70-99) Laboratory Tests Test 12/28/20 17:10 12/28/20 20:04 12/29/20 03:50 12/29/20 05:40 Glucose (Fingerstick) 279 mg/dL (70-99) 252 mg/dL (70-99) White Blood Count 8.8 x10^3/uL (4.0-11.0) Red Blood Count 4.68 x10^6/uL (3.50-5.40) Hemoglobin 14.3 g/dL (12.0-15.5) Hematocrit 44.8 % (36.0-47.0) Mean Corpuscular Volume 96 fL (79-100) Mean Corpuscular Hemoglobin 31 pg (25-35) Mean Corpuscular Hemoglobin Concent 32 g/dL (31-37) Red Cell Distribution Width 15.9 % (11.5-14.5) Platelet Count 144 x10^3/uL (140-400) Neutrophils (%) (Auto) 78 % (31-73) Lymphocytes (%) (Auto) 12 % (24-48) Monocytes (%) (Auto) 9 % (0-9) Eosinophils (%) (Auto) 0 % (0-3) Basophils (%) (Auto) 1 % (0-3) Neutrophils # (Auto) 6.8 x10^3/uL (1.8-7.7) Lymphocytes # (Auto) 1.1 x10^3/uL (1.0-4.8) Monocytes # (Auto) 0.8 x10^3/uL (0.0-1.1) Eosinophils # (Auto) 0.0 x10^3/uL (0.0-0.7) Basophils # (Auto) 0.1 x10^3/uL (0.0-0.2) Sodium Level 138 mmol/L (136-145) Potassium Level 4.4 mmol/L (3.5-5.1) Chloride Level 98 mmol/L (98-107) Carbon Dioxide Level 34 mmol/L (21-32) Anion Gap 6 (6-14) Blood Urea Nitrogen 43 mg/dL (7-20) Creatinine 1.6 mg/dL (0.6-1.0) Estimated GFR (Cockcroft-Gault) 30.7 Glucose Level 318 mg/dL (70-99) Calcium Level 8.5 mg/dL (8.5-10.1) Magnesium Level 2.2 mg/dL (1.8-2.4) Vancomycin Level Trough 18.3 mcg/mL (10.0-20.0) Vancomycin Last Dose Date Vancomycin Last Dose Time 040 Heparin Anti-Xa Act, Unfractionated 0.33 IU/mL (0.30-0.70) Test 12/29/20 08:18 12/29/20 11:55 Glucose (Fingerstick) 340 mg/dL (70-99) 352 mg/dL (70-99) Microbiology 12/27/20 Urine Culture - Final, Complete 12/27/20 Antimicrobic Susceptibility - Final, Complete 12/27/20 Blood Culture - Final, Complete Medications Current Medications Ceftriaxone Sodium (Rocephin) 2 gm 1X ONCE IVP Last administered on 12/27/20at 02:19; Start 12/27/20 at 02:00; Stop 12/27/20 at 02:01; Status DC Vancomycin HCl 250 ml @ 250 mls/hr 1X ONCE IV ; Start 12/27/20 at 01:45; Stop 12/27/20 at 02:44; Status UNV Vancomycin HCl (Vanco Per Pharmacy) 1 each PRN DAILY PRN MC SEE COMMENTS Last administered on 12/29/20at 09:15; Start 12/27/20 at 01:45 Fentanyl Citrate (Fentanyl 2ml Vial) 50 mcg 1X ONCE IVP Last administered on 12/27/20at 02:05; Start 12/27/20 at 02:00; Stop 12/27/20 at 02:01; Status DC Nitroglycerin (Nitro-Bid Oint) 1 inch 1X ONCE TP Last administered on 12/27/20at 02:06; Start 12/27/20 at 02:00; Stop 12/27/20 at 02:01; Status DC Vancomycin HCl 2 gm/Sodium Chloride 500 ml @ 250 mls/hr 1X ONCE IV Last administered on 12/27/20at 02:20; Start 12/27/20 at 02:30; Stop 12/27/20 at 04:29; Status DC Furosemide (Lasix) 20 mg 1X ONCE IVP Last administered on 12/27/20at 03:43; Start 12/27/20 at 03:30; Stop 12/27/20 at 03:31; Status DC Insulin Human Regular (HumuLIN R VIAL) 10 unit 1X ONCE IV Last administered on 12/27/20at 03:41; Start 12/27/20 at 03:30; Stop 12/27/20 at 03:31; Status DC Ondansetron HCl (Zofran) 4 mg PRN Q8HRS PRN IVP NAUSEA/VOMITING 1ST CHOICE; Start 12/27/20 at 03:15; Stop 12/28/20 at 03:14; Status DC Fentanyl Citrate (Fentanyl 2ml Vial) 50 mcg PRN Q24HRS PRN IVP SEVERE PAIN 7- 10; Start 12/27/20 at 03:15; Stop 12/27/20 at 03:25; Status DC Fentanyl Citrate (Fentanyl 2ml Vial) 50 mcg PRN Q2HRS PRN IVP SEVERE PAIN 7-10 Last administered on 12/27/20at 04:53; Start 12/27/20 at 03:30; Stop 12/28/20 at 03:29; Status DC Vancomycin HCl 1.75 gm/Sodium Chloride 500 ml @ 250 mls/hr Q24H IV Last administered on 12/29/20at 04:19; Start 12/28/20 at 04:00; Stop 12/29/20 at 10:35; Status DC Vancomycin HCl (Vancomycin Trough Level) 1 each 1X ONCE MC Last administered on 12/29/20at 03:30; Start 12/29/20 at 03:30; Stop 12/29/20 at 03:31; Status DC Influenza Virus Vaccine Quadrival (Flulaval Quad 9985-4700 Syringe) 0.5 ml ONCE ONCE VAX IM Last administered on 12/27/20at 17:54; Start 12/27/20 at 09:00; Stop 12/27/20 at 09:01; Status DC Lactobacillus Rhamnosus (Culturelle) 1 cap BID PO Last administered on 12/29/20at 08:28; Start 12/27/20 at 09:00 Heparin Sodium (Porcine) (Heparin Sodium) 4,000 unit 1X ONCE IV Last administered on 12/27/20at 09:13; Start 12/27/20 at 09:00; Stop 12/27/20 at 09:01; Status DC Heparin Sodium/ Dextrose 250 ml @ 10 mls/hr CONT PRN IV PER PROTOCOL Last administered on 12/27/20at 09:17; Start 12/27/20 at 09:00 Heparin Sodium (Porcine) (Heparin Sodium) 3,000 unit PRN Q6HRS PRN IV FOR UFH LEVEL LESS THAN 0.2; Start 12/27/20 at 09:00 Info (Anti-Coagulation Monitoring By Pharmacy) 1 each PRN DAILY PRN MC PER PROTOCOL Last administered on 12/27/20at 15:10; Start 12/27/20 at 09:00 Piperacillin Sod/ Tazobactam Sod (Zosyn Per Pharmacy) 1 each PRN DAILY PRN MC SEE COMMENTS; Start 12/27/20 at 09:15 Nystatin (Nystop) 1 amy BID TP Last administered on 12/29/20at 08:33; Start 12/27/20 at 10:00 Dextrose (Dextrose 50%-Water Syringe) 12.5 gm PRN Q15MIN PRN IV SEE COMMENTS; Start 12/27/20 at 09:30; Stop 12/27/20 at 09:26; Status DC Piperacillin Sod/ Tazobactam Sod 2.25 gm/Sodium Chloride 50 ml @ 100 mls/hr Q6HRS IV Last administered on 12/28/20at 07:28; Start 12/27/20 at 09:30; Stop 12/28/20 at 10:47; Status DC Insulin Human Lispro (HumaLOG) 0-7 UNITS TIDWMEALS SQ ; Start 12/27/20 at 12:0 0; Stop 12/27/20 at 09:32; Status DC Dextrose (Dextrose 50%-Water Syringe) 12.5 gm PRN Q15MIN PRN IV SEE COMMENTS; Start 12/27/20 at 09:30 Insulin Human Lispro (HumaLOG) 0-7 UNITS TIDWMEALS SQ Last administered on 12/29/20at 12:03; Start 12/27/20 at 09:30 Furosemide (Lasix) 40 mg 1X ONCE IVP Last administered on 12/27/20at 11:08; Start 12/27/20 at 10:30; Stop 12/27/20 at 10:34; Status DC Aspirin (Laura Aspirin) 325 mg 1X ONCE PO Last administered on 12/27/20at 12:52; Start 12/27/20 at 11:30; Stop 12/27/20 at 11:31; Status DC Aspirin (Ecotrin) 81 mg [id number] PO Last administered on 12/29/20at 08:28; Start 12/28/20 at 08:00 Insulin Human Lispro (HumaLOG) 30 units 1X ONCE SQ Last administered on 12/27/20at 12:56; Start 12/27/20 at 12:45; Stop 12/27/20 at 12:51; Status DC Metoprolol Tartrate (Lopressor) 25 mg BID PO Last administered on 12/29/20at 08:28; Start 12/27/20 at 21:00 Hydralazine HCl (Apresoline Inj) 10 mg PRN Q4HRS PRN IVP ELEVATED BP, SEE COMMENTS; Start 12/27/20 at 16:30 Atorvastatin Calcium (Lipitor) 20 mg DAILY PO Last administered on 12/29/20at 08:28; Start 12/28/20 at 09:00 Lactic Acid (Lac-Hydrin) 1 amy BID TP Last administered on 12/29/20at 08:33; Start 12/27/20 at 21:00 Insulin Human Lispro (HumaLOG) 10 units 1X ONCE SQ Last administered on 12/28/20at 10:45; Start 12/28/20 at 10:45; Stop 12/28/20 at 10:47; Status DC Piperacillin Sod/ Tazobactam Sod 3.375 gm/Sodium Chloride 50 ml @ 100 mls/hr Q6HRS IV Last administered on 12/29/20at 11:18; Start 12/28/20 at 12:00 Furosemide (Lasix) 40 mg BID IVP Last administered on 12/29/20at 08:29; Start 12/28/20 at 12:30; Stop 12/29/20 at 12:16; Status DC Insulin Human Lispro (HumaLOG) 10 units 1X ONCE SQ Last administered on 12/28/20at 12:25; Start 12/28/20 at 12:30; Stop 12/28/20 at 12:31; Status DC Insulin Human Lispro (HumaLOG) 10 units 1X ONCE SQ Last administered on 12/28/20at 13:18; Start 12/28/20 at 13:15; Stop 12/28/20 at 13:16; Status DC Insulin Glargine (Lantus Syringe) 20 unit QHS SQ Last administered on 12/28/20at 17:36; Start 12/28/20 at 16:01 Insulin Human Lispro (HumaLOG) 5 units TIDWMEALS SQ Last administered on 02/29/20at 12:04; Start 12/28/20 at 17:00 Acetaminophen/ Hydrocodone Bitart (Lortab 5/325) 1 tab PRN Q4HRS PRN PO MOD TO SEVERE PAIN Last administered on 12/28/20at 21:32; Start 12/28/20 at 17:00 Acetaminophen (Tylenol) 650 mg PRN Q6HRS PRN PO MILD PAIN / TEMP > 100.3'F; Start 12/28/20 at 17:00 Daptomycin 550 mg/ Sodium Chloride 50 ml @ 100 mls/hr Q24H IV Last administered on 12/29/20at 12:00; Start 12/29/20 at 12:00 Furosemide (Lasix) 40 mg DAILY IVP ; Start 12/30/20 at 09:00; Stop 12/29/20 at 12:18; Status DC Furosemide (Lasix) 40 mg BID94 IVP ; Start 12/29/20 at 16:00 Metolazone (Zaroxolyn) 2.5 mg 1X ONCE PO Last administered on 12/29/20at 12:23; Start 12/29/20 at 12:30; Stop 12/29/20 at 12:31; Status DC Active Scripts Active Vitals/I & O Vital Sign - Last 24 Hours 12/28/20 12/28/20 12/28/20 12/28/20 14:58 17:32 19:00 20:00 Temp 98.0 97.7 98.0 97.7 Pulse 71 85 Resp 22 16 B/P (MAP) 129/63 (85) 120/59 (79) Pulse Ox 92 92 90 O2 Delivery Nasal Cannula Nasal Cannula Nasal Cannula Nasal Cannula O2 Flow Rate 2.0 2.0 5.0 5.0 12/28/20 12/28/20 12/29/20 12/29/20 21:31 22:46 02:55 07:00 Temp 97.7 98.0 97.5 97.7 98.0 97.5 Pulse 85 59 58 64 Resp 16 16 20 B/P (MAP) 120/59 118/57 (77) 127/59 (81) 131/60 (83) Pulse Ox 95 97 97 O2 Delivery Nasal Cannula Nasal Cannula Nasal Cannula O2 Flow Rate 5.0 5.0 2.0 12/29/20 12/29/20 12/29/20 08:00 08:28 11:00 Temp 97.7 97.7 Pulse 63 64 Resp 20 B/P (MAP) 131/60 123/60 (81) Pulse Ox 93 O2 Delivery Nasal Cannula Nasal Cannula O2 Flow Rate 2.0 2.0 Intake and Output 12/28/20 12/28/20 12/29/20 14:59 22:59 06:59 Intake Total 240 ml 812 ml 600 ml Output Total 1000 ml 150 ml Balance 240 ml -188 ml 450 ml Justifications for Admission Other Justification Symptomatic cholelithiasis PAVAN BURNETT MD Dec 29, 2020 14:36
--- NOTE | 2020-12-29 14:39 | NUR ---
SS following up with discharge planning. SS reviewed pt chart and discussed with pt RN. Pt is currently requiring oxygen at two liters nasal canula. COVID19 negative. Pt has no home oxygen. Pt on IV Daptomycin, IV Lasix, and IV Zosyn. PO diet. PT/OT ordered. TLSO received today and Dr. Sullivan gave suma bearing orders with brace. Probable need for custodial unit. SS will continue to follow for discharge planning.
[2020-12-29 15:00] VITALS: BP 145/67
[2020-12-29] MEDS: HYDROcodone/APAP 5/325MG 1 TAB TABLET PO PRN ×2 (15:29→20:52)
[2020-12-29 19:00] VITALS: BP 134/61
[2020-12-29] MEDS: INSULIN GLARGINE SYRINGE. SQ SCH (20:51)
[2020-12-29] MEDS: HEPARIN for SUB-Q USE 5,000 UNIT/ML VIAL. SQ SCH (21:53)
[2020-12-29] MEDS: fentaNYL PF VIAL 100 MCG/2 ML VIAL IVP PRN (21:57)
--- NOTE | 2020-12-29 22:17 | NUR ---
held metoprol due to low hr, 56 lcrn
[2020-12-29 23:00] VITALS: BP 111/53
[2020-12-30 03:00] VITALS: BP 128/68
--- NOTE | 2020-12-30 03:23 | NUR ---
o2 sats on 2 l is 85%. increased o2 to 3 liters. sats ater 92%. pt is awake lcrn
[2020-12-30] MEDS: HYDROcodone/APAP 5/325MG 1 TAB TABLET PO PRN ×2 (04:20→08:39)
[2020-12-30] MEDS: PIPERACILLIN/TAZOBACTAM 3.375 GM in IV NORMAL SALINE 50ML 50 ML IV SCH (05:47)
[2020-12-30] MEDS: HEPARIN for SUB-Q USE 5,000 UNIT/ML VIAL. SQ SCH ×3 (05:47→21:16)
[2020-12-30 07:00] VITALS: BP 116/58
[2020-12-30] MEDS: INSULIN LISPRO 300 UNITS/3 ML VIAL. SQ SCH ×6 (07:38→16:48)
[2020-12-30] MEDS: LACTOBACILLUS RHAMNOSUS GG 1 CAPSULE. PO SCH ×2 (08:33→21:11)
[2020-12-30] MEDS: ASPIRIN ENTERIC COATED 81 MG TABLET.DR. PO SCH (08:34)
[2020-12-30] MEDS: ATORVASTATIN CALCIUM 20 MG TABLET PO SCH (08:34)
[2020-12-30] MEDS: METOPROLOL TART IMMED RELEASE 25 MG TABLET. PO SCH ×2 (08:34→21:11)
[2020-12-30] MEDS: FUROSEMIDE 40 MG/4 ML VIAL. IVP SCH ×2 (08:35→15:09)
[2020-12-30] MEDS: NYSTATIN TOPICAL POWDER 15GM BOTTLE. TP SCH ×2 (08:40→21:17)
[2020-12-30] MEDS: AMMONIUM LACTATE 12% TOPICAL LOTION 225GM BOTTLE. TP SCH ×2 (08:40→21:17)
[2020-12-30] MEDS ORDERED: FUROSEMIDE 40 MG/4 ML VIAL. IVP SCH (09:00)
--- NOTE | 2020-12-30 09:11 | PDOC ---
Infectious Disease Note Subjective: Subjective Patient states she feels okay Back pain is under control at this time Denies any fever, chills, nausea, vomiting, diarrhea, abdominal pain Vital Signs: Vital Signs Vital Signs Date Time Temp Pulse Resp B/P (MAP) Pulse Ox O2 Delivery O2 Flow Rate FiO2 12/30/20 08:39 94 Nasal Cannula 2.0 12/30/20 08:34 65 116/58 12/30/20 07:00 97.4 16 97.4 Physical Exam: PHYSICAL EXAM GENERAL: Alert, oriented x 3 female, propped up in bed, in no acute distress, on nasal O2. Has back brace in place HEENT: Normocephalic, atraumatic. Oral mucosa moist, no thrush. NECK: Supple. LUNGS: Crackles present bilaterally. No accessory muscle use. HEART: S1, S2. No murmurs. ABDOMEN: Soft, obese. Bowel sounds present. EXTREMITIES: Lower extremity edema, dry scaly skin and chronic venous stasis changes present. No warmth. NEUROLOGIC: Alert and oriented x 3, grossly nonfocal. PSYCHIATRIC: Calm and cooperative. MUSCULOSKELETAL: Changes suggestive of DJD.. Medications: Inpatient Meds: Medications reviewed. Labs: Lab Laboratory Tests Test 12/29/20 11:55 12/29/20 17:01 12/29/20 20:01 12/30/20 07:33 Glucose (Fingerstick) 352 mg/dL (70-99) 257 mg/dL (70-99) 178 mg/dL (70-99) 93 mg/dL (70-99) Objective: Assessment: 1. Bacteremia, gram-positive cocci present on admission on 12/27/2020, likely contaminant 2. Generalized weakness Multiple falls for a couple of months with a T10 fracture 3. Acute kidney injury. 4. Congestive heart failure. 5. Chronic venous stasis. 6. E. coli urinary tract infection. 7. Possible mild superimposed cellulitis with underlying chronic venous stasis. Plan: Plan of Care DC Zosyn and daptomycin Start ceftriaxone and doxycycline Follow repeat blood cultures TIFFANIE WISDOM MD Dec 30, 2020 09:11
--- NOTE | 2020-12-30 09:28 | PDOC ---
Renal-Progress Notes Subjective Notes Notes NO NEW COMPLAINTS History of Present Illness Hx of present illness STABLE Vitals Vitals Vital Signs Date Time Temp Pulse Resp B/P (MAP) Pulse Ox O2 Delivery O2 Flow Rate FiO2 12/30/20 09:09 94 Nasal Cannula 2.0 12/30/20 08:34 65 116/58 12/30/20 07:00 97.4 16 97.4 Weight Weight [ ] I.O. Intake and Output Intake and Output 12/30/20 07:00 Intake Total 1200 ml Output Total 1650 ml Balance -450 ml Intake Oral 800 ml IV Total 400 ml Output Urine Total 1650 ml Labs Labs Laboratory Tests Test 12/29/20 11:55 12/29/20 17:01 12/29/20 20:01 12/30/20 07:33 Glucose (Fingerstick) 352 mg/dL (70-99) 257 mg/dL (70-99) 178 mg/dL (70-99) 93 mg/dL (70-99) Micro Micro Microbiology 12/27/20 Urine Culture - Final, Complete 12/27/20 Antimicrobic Susceptibility - Final, Complete 12/27/20 Blood Culture - Final, Complete Review of Systems Constitutional: yes: alert, oriented Ears/Nose/Throat: Yes: no symptom reported Eyes: Yes: no symptom reported Pulmonary: Yes dyspnea Cardiovascular: Yes no symptom reported Gastrointestional: Yes: no symptom reported Musculoskeletal: Yes: no symptom reported Skin: Yes no symptom reported Psychiatric/Neurological: Yes: no symptom reported Endocrine: Yes: no symptom reported Physical Exam General Appearance: no apparent distress Respiratory: bilateral CTA Heart: S1S2 Abdomen: soft, bowel sounds present Genitourinary: bladder flat Extremities: pulses present Neurology: alert, oriented, follow commands Musculoskeletal: Osteoarthritis Assessment Assessment IMP TRICIA-CR UP TO 1.9-PROB HAS CKD CHF-PROB DIASTOLIC/OSMOTIC VASCULAR CONGESTION HYPERGLYCEMIA-NO KETOTIC ELEVATED TROPONIN LEVEL MULTIPLE FALL HX T 10 FX LE EDEMA POSSIBLE BILATERAL PRETIBIAL AREA CELLULITIS. BACTEREMIA G + E COLI UTI PLAN EXTRA LASIX TODAY NEEDS MORE NEG FLUID BALANCE ANTIBIOTICS CONTROL BG WILL FOLLOW CARLTON BYRNE MD Dec 30, 2020 09:28
[2020-12-30] MEDS ORDERED: FUROSEMIDE 40 MG/4 ML VIAL. IVP ONE (09:45)
--- NOTE | 2020-12-30 09:46 | PDOC ---
[employer] PROGRESS NOTE Date of Service DOS: DATE: 12/30/20 TIME: 09:39 Chief Complaint Chief Complaint Congestive Heart Failure Elevated Troponin Level Generalized weakness Hyperglycemia due to DM Multiple Fall Status UTI History of Present Illness History of Present Illness 12/30/2020 Patient seen and examined, in [facility] Distant Heart sounds heard on auscultation Patient is on 2 L oxygen per NC Antibiotics changed to Ceftriaxone and Doxycycline for bacteremia per Infectious Disease Heparin Drip stopped, with addition of ASA and statin per Cardiology Lasix continue and increased today per Nephrology Discussed with RN, chart reviewed 12/29/2020 Patient seen and examined, in [facility], patient states feeling mildly better, but still weak Patient is on 2 L oxygen per NC Antibiotics Hanging (Zosyn and Doxycycline) Heparin Drip hanging per cardiology Discussed with RN, chart reviewed. 12/28/2020 Patient was seen and examined, in [facility]. Patient is on 2 L oxygen per NC Antibiotics hanging Heparin Drip handing per cardiology Patient Troponin level still high, but trending down Discussed with RN, chart reviewed. Vitals/I&O Vitals/I&O: Vital Signs Date Time Temp Pulse Resp B/P (MAP) Pulse Ox O2 Delivery O2 Flow Rate FiO2 12/30/20 09:09 94 Nasal Cannula 2.0 12/30/20 08:34 65 116/58 12/30/20 07:00 97.4 16 97.4 I & O 12/29/20 12/29/20 12/30/20 15:00 23:00 07:00 Intake Total 770 ml 430 ml 0 ml Output Total 800 ml 850 ml Balance 770 ml -370 ml -850 ml Physical Exam Physical Exam: GENERAL: Alert, oriented x 3 female, propped up in bed, in no acute distress, on nasal O2. Has back brace in place HEENT: Normocephalic, atraumatic. Oral mucosa moist, no thrush. NECK: Supple. LUNGS: Crackles present bilaterally. No accessory muscle use. HEART: S1, S2. No murmurs. ABDOMEN: Soft, obese. Bowel sounds present. EXTREMITIES: Lower extremity edema, dry scaly skin and chronic venous stasis changes present. No warmth. NEUROLOGIC: Alert and oriented x 3, grossly nonfocal. PSYCHIATRIC: Calm and cooperative. MUSCULOSKELETAL: Changes suggestive of DJD.. General: Cooperative, No acute distress Heart: Regular rate Lungs: Clear Abdomen: Normal bowel sounds Extremities: No clubbing, Other (3+ LE EDEMA) Skin: No breakdown, Other (EXCORIATED SKIN IN PRETIBIAL AREAS BILATERALLY WITH ERYTHEMA) Labs Labs: Laboratory Tests Test 12/29/20 11:55 12/29/20 17:01 12/29/20 20:01 12/30/20 07:33 Glucose (Fingerstick) 352 mg/dL (70-99) 257 mg/dL (70-99) 178 mg/dL (70-99) 93 mg/dL (70-99) Assessment and Plan Assessmemt and Plan Problems Medical Problems: (1) Congestive heart failure Status: Acute (2) Elevated troponin level Status: Acute (3) Generalized weakness Status: Acute (4) Hyperglycemia due to diabetes mellitus Status: Acute (5) Multiple falls Status: Acute (6) Requires supplemental oxygen Status: Acute (7) Respiratory failure with hypoxia Status: Acute (8) T10 vertebral fracture Status: Acute (9) UTI (urinary tract infection) Status: Acute PLAN: Continue Cardiac Monitoring Antibiotics per infectious disease (currently doxy and ceftriaxone) Appreciate subspecialist input Trend Labs Statins Aspirin Home Meds DVT Prophylaxis Full Code PT OT intermediate unit evaluation Comment Review of Relevant I have reviewed the following items irving (where applicable) has been applied. Medications: Current Medications Medications (Trade) Dose Ordered Sig/Glenn Route PRN Reason Start Time Stop Time Status Last Admin Dose Admin Daptomycin 550 mg/ Sodium Chloride 50 ml @ 100 mls/hr Q24H IV 12/29/20 12:00 12/30/20 09:13 DC 12/29/20 12:00 Furosemide (Lasix) 40 mg [id number] IVP 12/29/20 16:00 12/30/20 08:35 Metolazone (Zaroxolyn) 2.5 mg 1X ONCE PO 12/29/20 12:30 12/29/20 12:31 DC 12/29/20 12:23 Fentanyl Citrate (Fentanyl 2ml Vial) 25 mcg PRN Q3HRS PRN IVP SEVERE PAIN 7-10 12/29/20 21:15 12/29/20 21:57 Heparin Sodium (Porcine) (Heparin Sodium) 5,000 unit Q8HRS SQ 12/29/20 22:00 12/29/20 21:53 Justifications for Admission Other Justification Symptomatic cholelithiasis CASTLE,NIAL K III DO Dec 30, 2020 09:46
[2020-12-30 09:53] LABS: BASO % 1 % (0-3); EOS # 0.1 x10^3/uL (0.0-0.7); EOS % 2 % (0-3); HEMATOCRIT 46.8 % (36.0-47.0); HEMOGLOBIN 14.7 g/dL (12.0-15.5); LYMPH # 0.9 x10^3/uL (1.0-4.8); LYMPH % 16 % (24-48); MEAN CORPUSCULAR HEMOGLOBIN 30 pg (25-35); MEAN CORPUSCULAR HGB CONC 31 g/dL (31-37); MEAN CORPUSCULAR VOLUME 95 fL (79-100); MONO # 0.7 x10^3/uL (0.0-1.1); MONO % 12 % (0-9); NEUT # 4.2 x10^3/uL (1.8-7.7); NEUT % 69 % (31-73); PLATELET COUNT 132 x10^3/uL (140-400); RED BLOOD COUNT 4.93 x10^6/uL (3.50-5.40); RED CELL DISTRIBUTION WIDTH 15.5 % (11.5-14.5)
[2020-12-30 10:11] LABS: CALCIUM 8.2 mg/dL (8.5-10.1); CREATININE 1.5 mg/dL (0.6-1.0); GFR 33.1; MAGNESIUM 2.2 mg/dL (1.8-2.4); POTASSIUM 3.7 mmol/L (3.5-5.1)
[2020-12-30] MEDS: cefTRIAXone IV Push 2 GM VIAL. IVP SCH (10:56)
[2020-12-30 11:00] VITALS: BP 148/68
[2020-12-30] MEDS ORDERED: tiZANidine 4 MG TABLET. PO PRN (11:15)
--- NOTE | 2020-12-30 11:39 | CONS ---
DATE OF CONSULTATION: 12/30/2020 LOCATION: She is in room 674. ATTENDING PHYSICIAN: Aditi Cotter DO. REASON FOR CONSULTATION: The patient was seen at the request of Dr. Sullivan for rehab evaluation. HISTORY OF PRESENT ILLNESS: This is an 85-year-old female admitted through the Emergency Room with frequent falls, especially over the last 1 month. She was admitted on 12/27/2020. She was found by Emergency Medical Service personnel with hypoxic, coughing, and shortness of breath as well. The patient with known diabetes mellitus. She was found in the Emergency Room with elevated troponin level at 5432, also was found with T12 vertebral body compression fracture. The patient with history of noncompliance, hypertension, diabetes mellitus, chronic renal insufficiency, , hysterectomy, part of the intestine removed. Not known allergic to any medication. She lives in a mobile home with her children. She had been independent with her mobility and self-care skills prior to the present hospitalization. But since COVID started, she is not as active, but still gets around without any assistive devices. The patient had received thoracolumbar support brace, but it was applied loosely higher up in her back that was not providing enough support. She admits severe pain with any movement, even rolling from side to side. With help of occupational therapist, I have adjusted brace and put it on properly even that 1 she admits pain while trying to roll over. She had tenderness to palpation over lower thoracic paraspinal muscles. She had 5/5 grade muscle strength overall. Deep tendon reflexes are decreased overall with absent knee and ankle jerks and she had decreased touch and pinprick sensation over a sock and glove distribution mainly in her feet. She had clinical evidence of chronic venous insufficiency of both legs distal parts, right worse than left side with some dependent edema and some softness of the skin over the posterior lateral aspect of both heels. No blisters noted. She is obese. She had a crepitus on range of motion of her knee joint without any significant knee joint pain. ASSESSMENT: Mobility and self-care limitation from T12 vertebral body compression fracture with associated degenerative disk disease of mid thoracic vertebrae. No clinical evidence of thoracic radiculopathy. Clinical evidence of peripheral neuropathy from diabetes mellitus. The patient with recent frequent falls, was noted with congestive heart failure, elevated troponin level, chronic venous insufficiency of both legs with dependent edema, hypoxia requiring oxygen at 2 liters per minute by nasal cannula. She was found with ejection fraction of 50-55%. Left ventricular systolic function is normal. Normal left ventricular segmental wall motion. Mild mitral regurgitation and tricuspid regurgitation with estimated PAP of 53 mmHg. No evidence of any pericardial effusion. Transmetatarsal Doppler flow pattern is grade II, pseudonormal filling dynamics. Cardiology with diagnosis being non-ST segment elevated myocardial infarction, acute on chronic congestive heart failure, possible diastolic dysfunction, lactic acidosis, accelerated hypertension, acute kidney injury, urinary tract infection. RECOMMENDATIONS: To see how she does participate in physical therapy with back brace adjusted properly. If she keeps on having pain interfering with her mobility, she might need to be considered for T10 kyphoplasty. Dr. Sullivan, I appreciate asking me to participate in the care of this interesting patient. I will be glad to see her for followup with you on as needed basis. ADDY DR: Kelechi TID: [id number]
--- NOTE | 2020-12-30 11:52 | PDOC ---
CARDIOLOGY PROGRESS NOTE SUBJECTIVE: Patient denies any current chest pain. She reports that her breathing is improved although she is fairly fatigued and sleeping in the bed. OBJECTIVE: Vital Signs/I&O: Vital Signs Date Time Temp Pulse Resp B/P (MAP) Pulse Ox O2 Delivery O2 Flow Rate FiO2 12/30/20 11:00 97.6 84 18 148/68 (94) 94 Nasal Cannula 2.0 97.6 I & O 12/29/20 12/29/20 12/30/20 15:00 23:00 07:00 Intake Total 770 ml 430 ml 0 ml Output Total 800 ml 850 ml Balance 770 ml -370 ml -850 ml Objective: The patient appeared well nourished and normally developed. Head exam is unremarkable. No scleral icterus or corneal arcus noted. Neck is without jugular venous distension, thyromegaly, or carotid bruits. Carotid upstrokes are brisk bilaterally. Lungs are notable for decreased breath sounds at the bases. Cardiac exam reveals the PMI to be normally sized and situated. Rhythm is regular. First and second heart sounds normal. No murmurs, rubs or gallops. Abdominal exam reveals normal bowel sounds, no masses, no organomegaly and no aortic enlargement. Extremities are notable for severe 3+ pitting edema up to the mid thigh. She has bilateral venous stasis changes and stasis dermatitis. 2+ dorsalis pedis pulses bilaterally. Msk: No traumua Neuro: No focal deficits CURRENT MEDICATIONS: Current Medications Medications (Trade) Dose Ordered Sig/Glenn Route PRN Reason Start Time Stop Time Status Last Admin Dose Admin Daptomycin 550 mg/ Sodium Chloride 50 ml @ 100 mls/hr Q24H IV 12/29/20 12:00 12/30/20 09:13 DC 12/29/20 12:00 Furosemide (Lasix) 40 mg [id number] IVP 12/29/20 16:00 12/30/20 08:35 Metolazone (Zaroxolyn) 2.5 mg 1X ONCE PO 12/29/20 12:30 12/29/20 12:31 DC 12/29/20 12:23 Fentanyl Citrate (Fentanyl 2ml Vial) 25 mcg PRN Q3HRS PRN IVP SEVERE PAIN 7-10 12/29/20 21:15 12/29/20 21:57 Heparin Sodium (Porcine) (Heparin Sodium) 5,000 unit Q8HRS SQ 12/29/20 22:00 12/29/20 21:53 Ceftriaxone Sodium (Rocephin) 2 gm Q24H IVP 12/30/20 10:00 12/30/20 10:56 Furosemide (Lasix) 40 mg 1X ONCE IVP 12/30/20 09:45 12/30/20 09:46 DC 12/30/20 10:56 DIAGNOSTIC TESTING: Labs, echo and EKG reviewed. Telemetry reviewed Labs: Laboratory Tests 12/30/20 09:10 Laboratory Tests Test 12/29/20 11:55 12/29/20 17:01 12/29/20 20:01 12/30/20 07:33 Glucose (Fingerstick) 352 mg/dL (70-99) H 257 mg/dL (70-99) H 178 mg/dL (70-99) H 93 mg/dL (70-99) Test 12/30/20 09:10 12/30/20 11:35 White Blood Count 6.0 x10^3/uL (4.0-11.0) Red Blood Count 4.93 x10^6/uL (3.50-5.40) Hemoglobin 14.7 g/dL (12.0-15.5) Hematocrit 46.8 % (36.0-47.0) Mean Corpuscular Volume 95 fL (79-100) Mean Corpuscular Hemoglobin 30 pg (25-35) Mean Corpuscular Hemoglobin Concent 31 g/dL (31-37) Red Cell Distribution Width 15.5 % (11.5-14.5) H Platelet Count 132 x10^3/uL (140-400) L Neutrophils (%) (Auto) 69 % (31-73) Lymphocytes (%) (Auto) 16 % (24-48) L Monocytes (%) (Auto) 12 % (0-9) H Eosinophils (%) (Auto) 2 % (0-3) Basophils (%) (Auto) 1 % (0-3) Neutrophils # (Auto) 4.2 x10^3/uL (1.8-7.7) Lymphocytes # (Auto) 0.9 x10^3/uL (1.0-4.8) L Monocytes # (Auto) 0.7 x10^3/uL (0.0-1.1) Eosinophils # (Auto) 0.1 x10^3/uL (0.0-0.7) Basophils # (Auto) 0.0 x10^3/uL (0.0-0.2) Sodium Level 140 mmol/L (136-145) Potassium Level 3.7 mmol/L (3.5-5.1) Chloride Level 99 mmol/L (98-107) Carbon Dioxide Level 34 mmol/L (21-32) H Anion Gap 7 (6-14) Blood Urea Nitrogen 44 mg/dL (7-20) H Creatinine 1.5 mg/dL (0.6-1.0) H Estimated GFR (Cockcroft-Gault) 33.1 Glucose Level 102 mg/dL (70-99) H Calcium Level 8.2 mg/dL (8.5-10.1) L Glucose (Fingerstick) 178 mg/dL (70-99) H ASSESSMENT: 1. Bacteremia currently on antibiotics 2. Acute on chronic diastolic heart failure 3. 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 Hypertension 5. Acute respiratory failure secondary to above 6. Acute renal failure secondary to bacteremia and diastolic heart failure PLAN: 1. Continue aspirin, atorvastatin and low-dose metoprolol 2. Continue aggressive diuresis for goal of net 2 to 3 L negative over the next [address] Gaston and nephrology service 3. Supportive care from a cardiac standpoint. No clear indication for dual antiplatelet therapy at this time but if she has any significant changes we could consider initiation of it. We will follow along closely. Justicifation of Admission Dx: Justifications for Admission: Justification of Admission Dx: Yes MONIQUE KAMINSKI MD Dec 30, 2020 11:51
[2020-12-30] MEDS: HYDROcodone/APAP 10/325 1 TAB TABLET PO PRN (11:58)
[2020-12-30] MEDS: fentaNYL PF VIAL 100 MCG/2 ML VIAL IVP PRN (13:47)
[2020-12-30 15:00] VITALS: BP 140/63
[2020-12-30 19:40] VITALS: BP 161/74
[2020-12-30] MEDS: DOXYCYCLINE HYCLATE 100 MG TABLET PO SCH (21:11)
[2020-12-30] MEDS: INSULIN GLARGINE SYRINGE. SQ SCH (21:13)
[2020-12-30 22:36] VITALS: BP 170/72
[2020-12-31 02:48] VITALS: BP 156/66
[2020-12-31] MEDS: HYDROcodone/APAP 10/325 1 TAB TABLET PO PRN ×3 (03:11→22:04)
[2020-12-31] MEDS: HEPARIN for SUB-Q USE 5,000 UNIT/ML VIAL. SQ SCH ×3 (06:30→22:05)
[2020-12-31 07:00] VITALS: BP 125/60
[2020-12-31] MEDS: ATORVASTATIN CALCIUM 20 MG TABLET PO SCH (08:58)
[2020-12-31] MEDS: METOPROLOL TART IMMED RELEASE 25 MG TABLET. PO SCH ×2 (08:58→22:02)
[2020-12-31] MEDS: ASPIRIN ENTERIC COATED 81 MG TABLET.DR. PO SCH (08:58)
[2020-12-31] MEDS: LACTOBACILLUS RHAMNOSUS GG 1 CAPSULE. PO SCH ×2 (08:58→22:01)
[2020-12-31] MEDS: FUROSEMIDE 40 MG/4 ML VIAL. IVP SCH ×2 (08:59→16:00)
[2020-12-31] MEDS: DOXYCYCLINE HYCLATE 100 MG TABLET PO SCH ×2 (09:01→22:02)
[2020-12-31] MEDS: AMMONIUM LACTATE 12% TOPICAL LOTION 225GM BOTTLE. TP SCH ×2 (09:01→22:07)
[2020-12-31] MEDS: NYSTATIN TOPICAL POWDER 15GM BOTTLE. TP SCH ×2 (09:01→22:07)
--- NOTE | 2020-12-31 09:03 | PDOC ---
PROGRESS NOTES Date of Service DATE: 12/31/20 TIME: 09:00 Subjective Subjective She admits continued low back pain with movement. Objective Objective Vital Signs Date Time Temp Pulse Resp B/P (MAP) Pulse Ox O2 Delivery O2 Flow Rate FiO2 12/31/20 03:11 Nasal Cannula 2.0 12/31/20 02:48 97.8 72 18 156/66 (96) 93 97.8 Intake and Output 12/31/20 07:00 Intake Total 537 ml Output Total 2475 ml Balance -1938 ml Intake Oral 537 ml Output Urine Total 2475 ml # Bowel Movements 3 Physical Exam Physical Exam She is alert,supine in bed and had corset and vascular boots in place and she continues with pain on rolling in bed. Assessment Assessment Problems Medical Problems: (1) Congestive heart failure Status: Acute (2) Elevated troponin level Status: Acute (3) Generalized weakness Status: Acute (4) Hyperglycemia due to diabetes mellitus Status: Acute (5) Multiple falls Status: Acute (6) Requires supplemental oxygen Status: Acute (7) Respiratory failure with hypoxia Status: Acute (8) T10 vertebral fracture Status: Acute (9) UTI (urinary tract infection) Status: Acute Plan Plan of Care To continue present physical therapy follow up as tolerated and I have recommended kyphoplasty,but she is not interested in any procedure at present. Comment Review of Relevant I have reviewed the following items irving (where applicable) has been applied. Labs Laboratory Tests Test 12/29/20 11:55 12/29/20 17:01 12/29/20 20:01 12/30/20 07:33 Glucose (Fingerstick) 352 mg/dL (70-99) 257 mg/dL (70-99) 178 mg/dL (70-99) 93 mg/dL (70-99) Test 12/30/20 09:10 12/30/20 11:35 12/30/20 16:44 12/30/20 20:54 White Blood Count 6.0 x10^3/uL (4.0-11.0) Red Blood Count 4.93 x10^6/uL (3.50-5.40) Hemoglobin 14.7 g/dL (12.0-15.5) Hematocrit 46.8 % (36.0-47.0) Mean Corpuscular Volume 95 fL (79-100) Mean Corpuscular Hemoglobin 30 pg (25-35) Mean Corpuscular Hemoglobin Concent 31 g/dL (31-37) Red Cell Distribution Width 15.5 % (11.5-14.5) Platelet Count 132 x10^3/uL (140-400) Neutrophils (%) (Auto) 69 % (31-73) Lymphocytes (%) (Auto) 16 % (24-48) Monocytes (%) (Auto) 12 % (0-9) Eosinophils (%) (Auto) 2 % (0-3) Basophils (%) (Auto) 1 % (0-3) Neutrophils # (Auto) 4.2 x10^3/uL (1.8-7.7) Lymphocytes # (Auto) 0.9 x10^3/uL (1.0-4.8) Monocytes # (Auto) 0.7 x10^3/uL (0.0-1.1) Eosinophils # (Auto) 0.1 x10^3/uL (0.0-0.7) Basophils # (Auto) 0.0 x10^3/uL (0.0-0.2) Sodium Level 140 mmol/L (136-145) Potassium Level 3.7 mmol/L (3.5-5.1) Chloride Level 99 mmol/L (98-107) Carbon Dioxide Level 34 mmol/L (21-32) Anion Gap 7 (6-14) Blood Urea Nitrogen 44 mg/dL (7-20) Creatinine 1.5 mg/dL (0.6-1.0) Estimated GFR (Cockcroft-Gault) 33.1 Glucose Level 102 mg/dL (70-99) Calcium Level 8.2 mg/dL (8.5-10.1) Magnesium Level 2.2 mg/dL (1.8-2.4) Glucose (Fingerstick) 178 mg/dL (70-99) 186 mg/dL (70-99) 240 mg/dL (70-99) Test 12/31/20 08:33 Glucose (Fingerstick) 239 mg/dL (70-99) Laboratory Tests Test 12/30/20 09:10 12/30/20 11:35 12/30/20 16:44 12/30/20 20:54 White Blood Count 6.0 x10^3/uL (4.0-11.0) Red Blood Count 4.93 x10^6/uL (3.50-5.40) Hemoglobin 14.7 g/dL (12.0-15.5) Hematocrit 46.8 % (36.0-47.0) Mean Corpuscular Volume 95 fL (79-100) Mean Corpuscular Hemoglobin 30 pg (25-35) Mean Corpuscular Hemoglobin Concent 31 g/dL (31-37) Red Cell Distribution Width 15.5 % (11.5-14.5) Platelet Count 132 x10^3/uL (140-400) Neutrophils (%) (Auto) 69 % (31-73) Lymphocytes (%) (Auto) 16 % (24-48) Monocytes (%) (Auto) 12 % (0-9) Eosinophils (%) (Auto) 2 % (0-3) Basophils (%) (Auto) 1 % (0-3) Neutrophils # (Auto) 4.2 x10^3/uL (1.8-7.7) Lymphocytes # (Auto) 0.9 x10^3/uL (1.0-4.8) Monocytes # (Auto) 0.7 x10^3/uL (0.0-1.1) Eosinophils # (Auto) 0.1 x10^3/uL (0.0-0.7) Basophils # (Auto) 0.0 x10^3/uL (0.0-0.2) Sodium Level 140 mmol/L (136-145) Potassium Level 3.7 mmol/L (3.5-5.1) Chloride Level 99 mmol/L (98-107) Carbon Dioxide Level 34 mmol/L (21-32) Anion Gap 7 (6-14) Blood Urea Nitrogen 44 mg/dL (7-20) Creatinine 1.5 mg/dL (0.6-1.0) Estimated GFR (Cockcroft-Gault) 33.1 Glucose Level 102 mg/dL (70-99) Calcium Level 8.2 mg/dL (8.5-10.1) Magnesium Level 2.2 mg/dL (1.8-2.4) Glucose (Fingerstick) 178 mg/dL (70-99) 186 mg/dL (70-99) 240 mg/dL (70-99) Test 12/31/20 08:33 Glucose (Fingerstick) 239 mg/dL (70-99) Microbiology 12/29/20 Blood Culture - Preliminary, Resulted NO GROWTH AFTER 1 DAY 12/27/20 Urine Culture - Final, Complete 12/27/20 Antimicrobic Susceptibility - Final, Complete Medications Current Medications Ceftriaxone Sodium (Rocephin) 2 gm 1X ONCE IVP Last administered on 12/27/20at 02:19; Start 12/27/20 at 02:00; Stop 12/27/20 at 02:01; Status DC Vancomycin HCl 250 ml @ 250 mls/hr 1X ONCE IV ; Start 12/27/20 at 01:45; Stop 12/27/20 at 02:44; Status UNV Vancomycin HCl (Vanco Per Pharmacy) 1 each PRN DAILY PRN MC SEE COMMENTS Last administered on 12/29/20at 09:15; Start 12/27/20 at 01:45; Stop 12/29/20 at 17:35; Status DC Fentanyl Citrate (Fentanyl 2ml Vial) 50 mcg 1X ONCE IVP Last administered on 12/27/20at 02:05; Start 12/27/20 at 02:00; Stop 12/27/20 at 02:01; Status DC Nitroglycerin (Nitro-Bid Oint) 1 inch 1X ONCE TP Last administered on 12/27/20at 02:06; Start 12/27/20 at 02:00; Stop 12/27/20 at 02:01; Status DC Vancomycin HCl 2 gm/Sodium Chloride 500 ml @ 250 mls/hr 1X ONCE IV Last administered on 12/27/20at 02:20; Start 12/27/20 at 02:30; Stop 12/27/20 at 04:29; Status DC Furosemide (Lasix) 20 mg 1X ONCE IVP Last administered on 12/27/20at 03:43; Start 12/27/20 at 03:30; Stop 12/27/20 at 03:31; Status DC Insulin Human Regular (HumuLIN R VIAL) 10 unit 1X ONCE IV Last administered on 12/27/20at 03:41; Start 12/27/20 at 03:30; Stop 12/27/20 at 03:31; Status DC Ondansetron HCl (Zofran) 4 mg PRN Q8HRS PRN IVP NAUSEA/VOMITING 1ST CHOICE; Start 12/27/20 at 03:15; Stop 12/28/20 at 03:14; Status DC Fentanyl Citrate (Fentanyl 2ml Vial) 50 mcg PRN Q24HRS PRN IVP SEVERE PAIN 7- 10; Start 12/27/20 at 03:15; Stop 12/27/20 at 03:25; Status DC Fentanyl Citrate (Fentanyl 2ml Vial) 50 mcg PRN Q2HRS PRN IVP SEVERE PAIN 7-10 Last administered on 12/27/20at 04:53; Start 12/27/20 at 03:30; Stop 12/28/20 at 03:29; Status DC Vancomycin HCl 1.75 gm/Sodium Chloride 500 ml @ 250 mls/hr Q24H IV Last administered on 12/29/20at 04:19; Start 12/28/20 at 04:00; Stop 12/29/20 at 10:35; Status DC Vancomycin HCl (Vancomycin Trough Level) 1 each 1X ONCE MC Last administered on 12/29/20at 03:30; Start 12/29/20 at 03:30; Stop 12/29/20 at 03:31; Status DC Influenza Virus Vaccine Quadrival (Flulaval Quad [id number] Syringe) 0.5 ml ONCE ONCE VAX IM Last administered on 12/27/20at 17:54; Start 12/27/20 at 09:00; Stop 12/27/20 at 09:01; Status DC Lactobacillus Rhamnosus (Culturelle) 1 cap BID PO Last administered on 12/30/20at 21:11; Start 12/27/20 at 09:00 Heparin Sodium (Porcine) (Heparin Sodium) 4,000 unit 1X ONCE IV Last administered on 12/27/20at 09:13; Start 12/27/20 at 09:00; Stop 12/27/20 at 09:01; Status DC Heparin Sodium/ Dextrose 250 ml @ 10 mls/hr CONT PRN IV PER PROTOCOL Last administered on 12/27/20at 09:17; Start 12/27/20 at 09:00; Stop 12/29/20 at 21:19; Status DC Heparin Sodium (Porcine) (Heparin Sodium) 3,000 unit PRN Q6HRS PRN IV FOR UFH LEVEL LESS THAN 0.2; Start 12/27/20 at 09:00; Stop 12/29/20 at 21:19; Status DC Info (Anti-Coagulation Monitoring By Pharmacy) 1 each PRN DAILY PRN MC PER PROTOCOL Last administered on 12/27/20at 15:10; Start 12/27/20 at 09:00; Stop 12/29/20 at 21:19; Status DC Piperacillin Sod/ Tazobactam Sod (Zosyn Per Pharmacy) 1 each PRN DAILY PRN MC SEE COMMENTS; Start 12/27/20 at 09:15; Stop 12/30/20 at 09:13; Status DC Nystatin (Nystop) 1 amy BID TP Last administered on 12/30/20at 21:17; Start 12/27/20 at 10:00 Dextrose (Dextrose 50%-Water Syringe) 12.5 gm PRN Q15MIN PRN IV SEE COMMENTS; Start 12/27/20 at 09:30; Stop 12/27/20 at 09:26; Status DC Piperacillin Sod/ Tazobactam Sod 2.25 gm/Sodium Chloride 50 ml @ 100 mls/hr Q6HRS IV Last administered on 12/28/20at 07:28; Start 12/27/20 at 09:30; Stop 12/28/20 at 10:47; Status DC Insulin Human Lispro (HumaLOG) 0-7 UNITS TIDWMEALS SQ ; Start 12/27/20 at 12:00; Stop 12/27/20 at 09:32; Status DC Dextrose (Dextrose 50%-Water Syringe) 12.5 gm PRN Q15MIN PRN IV SEE COMMENTS; Start 12/27/20 at 09:30 Insulin Human Lispro (HumaLOG) 0-7 UNITS TIDWMEALS SQ Last administered on 12/30/20at 12:02; Start 12/27/20 at 09:30 Furosemide (Lasix) 40 mg 1X ONCE IVP Last administered on 12/27/20at 11:08; Start 12/27/20 at 10:30; Stop 12/27/20 at 10:34; Status DC Aspirin (Laura Aspirin) 325 mg 1X ONCE PO Last administered on 12/27/20at 12:52; Start 12/27/20 at 11:30; Stop 12/27/20 at 11:31; Status DC Aspirin (Ecotrin) 81 mg [id number] PO Last administered on 12/30/20at 08:34; Start 12/28/20 at 08:00 Insulin Human Lispro (HumaLOG) 30 units 1X ONCE SQ Last administered on 12/27/20at 12:56; Start 12/27/20 at 12:45; Stop 12/27/20 at 12:51; Status DC Metoprolol Tartrate (Lopressor) 25 mg BID PO Last administered on 12/30/20at 21:11; Start 12/27/20 at 21:00 Hydralazine HCl (Apresoline Inj) 10 mg PRN Q4HRS PRN IVP ELEVATED BP, SEE COMMENTS; Start 12/27/20 at 16:30 Atorvastatin Calcium (Lipitor) 20 mg DAILY PO Last administered on 12/30/20at 08:34; Start 12/28/20 at 09:00 Lactic Acid (Lac-Hydrin) 1 amy BID TP Last administered on 12/30/20at 21:17; Start 12/27/20 at 21:00 Insulin Human Lispro (HumaLOG) 10 units 1X ONCE SQ Last administered on 12/28/20at 10:45; Start 12/28/20 at 10:45; Stop 12/28/20 at 10:47; Status DC Piperacillin Sod/ Tazobactam Sod 3.375 gm/Sodium Chloride 50 ml @ 100 mls/hr Q6HRS IV Last administered on 12/30/20at 05:47; Start 12/28/20 at 12:00; Stop 12/30/20 at 09:19; Status DC Furosemide (Lasix) 40 mg BID IVP Last administered on 12/29/20at 08:29; Start 12/28/20 at 12:30; Stop 12/29/20 at 12:16; Status DC Insulin Human Lispro (HumaLOG) 10 units 1X ONCE SQ Last administered on 12/28/20at 12:25; Start 12/28/20 at 12:30; Stop 12/28/20 at 12:31; Status DC Insulin Human Lispro (HumaLOG) 10 units 1X ONCE SQ Last administered on 12/28/20at 13:18; Start 12/28/20 at 13:15; Stop 12/28/20 at 13:16; Status DC Insulin Glargine (Lantus Syringe) 20 unit QHS SQ Last administered on 12/30/20at 21:13; Start 12/28/20 at 16:01 Insulin Human Lispro (HumaLOG) 5 units TIDWMEALS SQ Last administered on 12/30/20 12:02; Start 12/28/20 at 17:00 Acetaminophen/ Hydrocodone Bitart (Lortab 5/325) 1 tab PRN Q4HRS PRN PO MOD TO SEVERE PAIN Last administered on 12/30/20at 08:39; Start 12/28/20 at 17:00; Stop 12/30/20 at 11:01; Status DC Acetaminophen (Tylenol) 650 mg PRN Q6HRS PRN PO MILD PAIN / TEMP > 100.3'F; Start 12/28/20 at 17:00 Daptomycin 550 mg/ Sodium Chloride 50 ml @ 100 mls/hr Q24H IV Last administered on 12/29/20at 12:00; Start 12/29/20 at 12:00; Stop 12/30/20 at 09:13; Status DC Furosemide (Lasix) 40 mg DAILY IVP ; Start 12/30/20 at 09:00; Stop 12/29/20 at 12:18; Status DC Furosemide (Lasix) 40 mg [id number] IVP Last administered on 12/30/20at 15:09; Start 12/29/20 at 16:00 Metolazone (Zaroxolyn) 2.5 mg 1X ONCE PO Last administered on 12/29/20at 12:23; Start 12/29/20 at 12:30; Stop 12/29/20 at 12:31; Status DC Fentanyl Citrate (Fentanyl 2ml Vial) 25 mcg PRN Q3HRS PRN IVP SEVERE PAIN 7-10 Last administered on 12/30/20at 13:47; Start 12/29/20 at 21:15 Heparin Sodium (Porcine) (Heparin Sodium) 5,000 unit Q8HRS SQ Last administered on 12/31/20at 06:30; Start 12/29/20 at 22:00 Ceftriaxone Sodium (Rocephin) 2 gm Q24H IVP Last administered on 12/30/20at 10:56; Start 12/30/20 at 10:00 Doxycycline Hyclate (Vibra-Tab) 100 mg BID PO Last administered on 12/30/20at 21:11; Start 12/30/20 at 21:00 Furosemide (Lasix) 40 mg 1X ONCE IVP Last administered on 12/30/20at 10:56; Start 12/30/20 at 09:45; Stop 12/30/20 at 09:46; Status DC Acetaminophen/ Hydrocodone Bitart (Lortab 10325) 1 tab PRN Q6HRS PRN PO MODERATE - SEVERE PAIN Last administered on 12/31/20at 03:11; Start 12/30/20 at 11:00 Tizanidine HCl (Zanaflex) 4 mg PRN Q8HRS PRN PO MUSCLE SPASMS; Start 12/30/20 at 11:15 Active Scripts Active Vitals/I & O Vital Sign - Last 24 Hours 12/30/20 12/30/20 12/30/20 12/30/20 09:09 11:00 11:58 12:28 Temp 97.6 97.6 Pulse 84 Resp 18 B/P (MAP) 148/68 (94) Pulse Ox 94 94 94 94 O2 Delivery Nasal Cannula Nasal Cannula Nasal Cannula Nasal Cannula O2 Flow Rate 2.0 2.0 2.0 2.0 12/30/20 12/30/20 12/30/20 12/30/20 13:47 14:17 15:00 19:40 Temp 96.9 97.2 96.9 97.2 Pulse 62 71 Resp 18 18 B/P (MAP) 140/63 (88) 161/74 (103) Pulse Ox 94 94 94 95 O2 Delivery Nasal Cannula Nasal Cannula Nasal Cannula Nasal Cannula O2 Flow Rate 2.0 2.0 2.0 2.0 12/30/20 12/30/20 12/30/20 12/31/20 20:30 21:11 22:36 02:48 Temp 97.2 97.8 97.2 97.8 Pulse 71 72 72 Resp 18 18 B/P (MAP) 161/74 170/72 (104) 156/66 (96) Pulse Ox 95 93 O2 Delivery Nasal Cannula Nasal Cannula Nasal Cannula O2 Flow Rate 2.0 2.0 2.0 12/31/20 03:11 O2 Delivery Nasal Cannula O2 Flow Rate 2.0 Intake and Output 12/30/20 12/30/20 12/31/20 15:00 23:00 07:00 Intake Total 237 ml 0 ml 300 ml Output Total 1725 ml 750 ml Balance 237 ml -1725 ml -450 ml Justifications for Admission Other Justification Symptomatic cholelithiasis SANGEETA MILLER MD Dec 31, 2020 09:03
[2020-12-31] MEDS: INSULIN LISPRO 300 UNITS/3 ML VIAL. SQ SCH ×6 (09:04→17:00)
[2020-12-31] MEDS: cefTRIAXone IV Push 2 GM VIAL. IVP SCH (09:06)
[2020-12-31 09:38] LABS: BASO % 1 % (0-3); EOS % 0 % (0-3); HEMATOCRIT 43.1 % (36.0-47.0); HEMOGLOBIN 14.1 g/dL (12.0-15.5); LYMPH # 0.5 x10^3/uL (1.0-4.8); LYMPH % 8 % (24-48); MEAN CORPUSCULAR HEMOGLOBIN 30 pg (25-35); MEAN CORPUSCULAR HGB CONC 33 g/dL (31-37); MEAN CORPUSCULAR VOLUME 93 fL (79-100); MONO # 0.6 x10^3/uL (0.0-1.1); MONO % 9 % (0-9); NEUT # 5.5 x10^3/uL (1.8-7.7); NEUT % 82 % (31-73); PLATELET COUNT 139 x10^3/uL (140-400); RED BLOOD COUNT 4.65 x10^6/uL (3.50-5.40); RED CELL DISTRIBUTION WIDTH 15.4 % (11.5-14.5); WHITE BLOOD COUNT 6.6 x10^3/uL (4.0-11.0)
[2020-12-31 09:49] LABS: CALCIUM 8.5 mg/dL (8.5-10.1); CREATININE 1.2 mg/dL (0.6-1.0); GFR 42.8; MAGNESIUM 2.1 mg/dL (1.8-2.4); POTASSIUM 3.1 mmol/L (3.5-5.1)
--- NOTE | 2020-12-31 10:37 | PDOC ---
Renal-Progress Notes Subjective Notes Notes FEELING MORE SOB THIS AM History of Present Illness Hx of present illness STABLE BUT MORE SOB THIS AM Vitals Vitals Vital Signs Date Time Temp Pulse Resp B/P (MAP) Pulse Ox O2 Delivery O2 Flow Rate FiO2 12/31/20 08:58 72 156/66 12/31/20 07:00 97.8 18 92 Nasal Cannula 2.0 97.8 Weight Weight [ ] I.O. Intake and Output Intake and Output 12/31/20 07:00 Intake Total 537 ml Output Total 2475 ml Balance -1938 ml Intake Oral 537 ml Output Urine Total 2475 ml # Bowel Movements 3 Labs Labs Laboratory Tests Test 12/30/20 11:35 12/30/20 16:44 12/30/20 20:54 12/31/20 08:33 Glucose (Fingerstick) 178 mg/dL (70-99) 186 mg/dL (70-99) 240 mg/dL (70-99) 239 mg/dL (70-99) Test 12/31/20 08:35 White Blood Count 6.6 x10^3/uL (4.0-11.0) Red Blood Count 4.65 x10^6/uL (3.50-5.40) Hemoglobin 14.1 g/dL (12.0-15.5) Hematocrit 43.1 % (36.0-47.0) Mean Corpuscular Volume 93 fL (79-100) Mean Corpuscular Hemoglobin 30 pg (25-35) Mean Corpuscular Hemoglobin Concent 33 g/dL (31-37) Red Cell Distribution Width 15.4 % (11.5-14.5) Platelet Count 139 x10^3/uL (140-400) Neutrophils (%) (Auto) 82 % (31-73) Lymphocytes (%) (Auto) 8 % (24-48) Monocytes (%) (Auto) 9 % (0-9) Eosinophils (%) (Auto) 0 % (0-3) Basophils (%) (Auto) 1 % (0-3) Neutrophils # (Auto) 5.5 x10^3/uL (1.8-7.7) Lymphocytes # (Auto) 0.5 x10^3/uL (1.0-4.8) Monocytes # (Auto) 0.6 x10^3/uL (0.0-1.1) Eosinophils # (Auto) 0.0 x10^3/uL (0.0-0.7) Basophils # (Auto) 0.0 x10^3/uL (0.0-0.2) Sodium Level 142 mmol/L (136-145) Potassium Level 3.1 mmol/L (3.5-5.1) Chloride Level 100 mmol/L (98-107) Carbon Dioxide Level 36 mmol/L (21-32) Anion Gap 6 (6-14) Blood Urea Nitrogen 45 mg/dL (7-20) Creatinine 1.2 mg/dL (0.6-1.0) Estimated GFR (Cockcroft-Gault) 42.8 Glucose Level 245 mg/dL (70-99) Calcium Level 8.5 mg/dL (8.5-10.1) Magnesium Level 2.1 mg/dL (1.8-2.4) Micro Micro Microbiology 12/29/20 Blood Culture - Preliminary, Resulted NO GROWTH AFTER 1 DAY 12/27/20 Urine Culture - Final, Complete 12/27/20 Antimicrobic Susceptibility - Final, Complete Review of Systems Constitutional: yes: alert, oriented Ears/Nose/Throat: Yes: no symptom reported Eyes: Yes: no symptom reported Pulmonary: Yes dyspnea Cardiovascular: Yes no symptom reported Gastrointestional: Yes: no symptom reported Musculoskeletal: Yes: no symptom reported Skin: Yes no symptom reported Psychiatric/Neurological: Yes: no symptom reported Endocrine: Yes: no symptom reported Physical Exam General Appearance: no apparent distress Respiratory: bilateral CTA Heart: S1S2 Abdomen: soft, bowel sounds present Genitourinary: bladder flat Extremities: pulses present Neurology: alert, oriented, follow commands Musculoskeletal: Osteoarthritis Assessment Assessment IMP TRICIA-CR DOWN TO 1.2 HYPOKALEMIA CHF-PROB DIASTOLIC/OSMOTIC VASCULAR CONGESTION HYPERGLYCEMIA-NO KETOTIC ELEVATED TROPONIN LEVEL MULTIPLE FALL HX T 10 FX LE EDEMA POSSIBLE BILATERAL PRETIBIAL AREA CELLULITIS. BACTEREMIA G + E COLI UTI PLAN MORE LASIX THIS AM REPLACE K NEEDS MORE NEG FLUID BALANCE ANTIBIOTICS CONTROL BG WILL FOLLOW CARLTON BYRNE MD Dec 31, 2020 10:37
[2020-12-31 10:58] VITALS: BP 130/60
[2020-12-31] MEDS ORDERED: POTASSIUM CHLORIDE 20 MEQ TABLET.ER. PO ONE (11:30)
[2020-12-31] MEDS ORDERED: FUROSEMIDE 40 MG/4 ML VIAL. IVP ONE (11:30)
--- NOTE | 2020-12-31 13:03 | PDOC ---
CARDIOLOGY PROGRESS NOTE SUBJECTIVE: No new events overnight. Resting comfortably. Remains volume overloaded. OBJECTIVE: Vital Signs/I&O: Vital Signs Date Time Temp Pulse Resp B/P (MAP) Pulse Ox O2 Delivery O2 Flow Rate FiO2 12/31/20 10:58 98.0 65 22 130/60 (83) 90 Nasal Cannula 2.0 98.0 I & O 12/30/20 12/30/20 12/31/20 15:00 23:00 07:00 Intake Total 237 ml 0 ml 300 ml Output Total 1725 ml 750 ml Balance 237 ml -1725 ml -450 ml Objective: The patient appeared well nourished and normally developed. Head exam is unremarkable. No scleral icterus or corneal arcus noted. Neck is without jugular venous distension, thyromegaly, or carotid bruits. Carotid upstrokes are brisk bilaterally. Lungs are notable for decreased breath sounds at the bases. Cardiac exam reveals the PMI to be normally sized and situated. Rhythm is regul ar. First and second heart sounds normal. No murmurs, rubs or gallops. Abdominal exam reveals normal bowel sounds, no masses, no organomegaly and no aortic enlargement. Extremities are notable for severe 3+ pitting edema up to the mid thigh. She has bilateral venous stasis changes and stasis dermatitis. 2+ dorsalis pedis pulses bilaterally. Msk: No traumua Neuro: No focal deficits CURRENT MEDICATIONS: Lasix, atorvastatin, asa, metoprolol DIAGNOSTIC TESTING: Labs reviewed. Labs: Laboratory Tests 12/31/20 08:35 Laboratory Tests Test 12/30/20 16:44 12/30/20 20:54 12/31/20 08:33 12/31/20 08:35 Glucose (Fingerstick) 186 mg/dL (70-99) H 240 mg/dL (70-99) H 239 mg/dL (70-99) H White Blood Count 6.6 x10^3/uL (4.0-11.0) Red Blood Count 4.65 x10^6/uL (3.50-5.40) Hemoglobin 14.1 g/dL (12.0-15.5) Hematocrit 43.1 % (36.0-47.0) Mean Corpuscular Volume 93 fL (79-100) Mean Corpuscular Hemoglobin 30 pg (25-35) Mean Corpuscular Hemoglobin Concent 33 g/dL (31-37) Red Cell Distribution Width 15.4 % (11.5-14.5) H Platelet Count 139 x10^3/uL (140-400) L Neutrophils (%) (Auto) 82 % (31-73) H Lymphocytes (%) (Auto) 8 % (24-48) L Monocytes (%) (Auto) 9 % (0-9) Eosinophils (%) (Auto) 0 % (0-3) Basophils (%) (Auto) 1 % (0-3) Neutrophils # (Auto) 5.5 x10^3/uL (1.8-7.7) Lymphocytes # (Auto) 0.5 x10^3/uL (1.0-4.8) L Monocytes # (Auto) 0.6 x10^3/uL (0.0-1.1) Eosinophils # (Auto) 0.0 x10^3/uL (0.0-0.7) Basophils # (Auto) 0.0 x10^3/uL (0.0-0.2) Sodium Level 142 mmol/L (136-145) Potassium Level 3.1 mmol/L (3.5-5.1) L Chloride Level 100 mmol/L (98-107) Carbon Dioxide Level 36 mmol/L (21-32) H Anion Gap 6 (6-14) Blood Urea Nitrogen 45 mg/dL (7-20) H Creatinine 1.2 mg/dL (0.6-1.0) H Estimated GFR (Cockcroft-Gault) 42.8 Glucose Level 245 mg/dL (70-99) H Calcium Level 8.5 mg/dL (8.5-10.1) Test 12/31/20 12:14 Glucose (Fingerstick) 224 mg/dL (70-99) H ASSESSMENT: ASSESSMENT: 1. Bacteremia currently on antibiotics 2. Acute on chronic diastolic heart failure 3. 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 Hypertension 5. Acute respiratory failure secondary to above 6. Acute renal failure secondary to bacteremia and diastolic heart failure PLAN: 1. Continue aspirin, atorvastatin and low-dose metoprolol 2. Continue aggressive diuresis- doing well. 3. Supportive care from a cardiac standpoint. We will follow along closely. Justicifation of Admission Dx: Justifications for Admission: Justification of Admission Dx: Yes MONIQUE KAMINSKI MD Dec 31, 2020 13:03
[2020-12-31 15:00] VITALS: BP 145/65
--- NOTE | 2020-12-31 17:09 | PDOC ---
[facility] PROGRESS NOTE Date of Service DOS: DATE: 12/31/20 TIME: 17:09 Chief Complaint Chief Complaint Congestive Heart Failure Elevated Troponin Level Generalized weakness Hyperglycemia due to DM Multiple Fall Status UTI History of Present Illness History of Present Illness 12/31 Patient evaluated examined at bedside. Continue current plan. 12/30/2020 Patient seen and examined, in NAD Distant Heart sounds heard on auscultation Patient is on 2 L oxygen per [place] Antibiotics changed to Ceftriaxone and Doxycycline for bacteremia per Infectious Disease Heparin Drip stopped, with addition of ASA and statin per Cardiology Lasix continue and increased today per Nephrology Discussed with RN, chart reviewed 12/29/2020 Patient seen and examined, in NAD, patient states feeling mildly better, but still weak Patient is on 2 L oxygen per NC Antibiotics Hanging (Zosyn and Doxycycline) Heparin Drip hanging per cardiology Discussed with RN, chart reviewed. 12/28/2020 Patient was seen and examined, in NAD. Patient is on 2 L oxygen per NC Antibiotics hanging Heparin Drip handing per cardiology Patient Troponin level still high, but trending down Discussed with RN, chart reviewed. Vitals/I&O Vitals/I&O: Vital Signs Date Time Temp Pulse Resp B/P (MAP) Pulse Ox O2 Delivery O2 Flow Rate FiO2 12/31/20 16:10 90 Nasal Cannula 2.0 12/31/20 15:00 97.7 75 20 145/65 (91) 97.7 I & O 12/30/20 12/30/20 12/31/20 15:00 23:00 07:00 Intake Total 237 ml 0 ml 300 ml Output Total 1725 ml 750 ml Balance 237 ml -1725 ml -450 ml Physical Exam Physical Exam: GENERAL: Alert, oriented x 3 female, propped up in bed, in no acute distress, on nasal O2. Has back brace in place HEENT: Normocephalic, atraumatic. Oral mucosa moist, no thrush. NECK: Supple. LUNGS: Crackles present bilaterally. No accessory muscle use. HEART: S1, S2. No murmurs. ABDOMEN: Soft, obese. Bowel sounds present. EXTREMITIES: Lower extremity edema, dry scaly skin and chronic venous stasis changes present. No warmth. NEUROLOGIC: Alert and oriented x 3, grossly nonfocal. PSYCHIATRIC: Calm and cooperative. MUSCULOSKELETAL: Changes suggestive of DJD.. General: Cooperative, No acute distress Heart: Regular rate Lungs: Clear Abdomen: Normal bowel sounds Extremities: No clubbing, Other (3+ LE EDEMA) Skin: No breakdown, Other (EXCORIATED SKIN IN PRETIBIAL AREAS BILATERALLY WITH ERYTHEMA) Labs Labs: Laboratory Tests Test 12/30/20 20:54 12/31/20 08:33 12/31/20 08:35 12/31/20 12:14 Glucose (Fingerstick) 240 mg/dL (70-99) 239 mg/dL (70-99) 224 mg/dL (70-99) White Blood Count 6.6 x10^3/uL (4.0-11.0) Red Blood Count 4.65 x10^6/uL (3.50-5.40) Hemoglobin 14.1 g/dL (12.0-15.5) Hematocrit 43.1 % (36.0-47.0) Mean Corpuscular Volume 93 fL (79-100) Mean Corpuscular Hemoglobin 30 pg (25-35) Mean Corpuscular Hemoglobin Concent 33 g/dL (31-37) Red Cell Distribution Width 15.4 % (11.5-14.5) Platelet Count 139 x10^3/uL (140-400) Neutrophils (%) (Auto) 82 % (31-73) Lymphocytes (%) (Auto) 8 % (24-48) Monocytes (%) (Auto) 9 % (0-9) Eosinophils (%) (Auto) 0 % (0-3) Basophils (%) (Auto) 1 % (0-3) Neutrophils # (Auto) 5.5 x10^3/uL (1.8-7.7) Lymphocytes # (Auto) 0.5 x10^3/uL (1.0-4.8) Monocytes # (Auto) 0.6 x10^3/uL (0.0-1.1) Eosinophils # (Auto) 0.0 x10^3/uL (0.0-0.7) Basophils # (Auto) 0.0 x10^3/uL (0.0-0.2) Sodium Level 142 mmol/L (136-145) Potassium Level 3.1 mmol/L (3.5-5.1) Chloride Level 100 mmol/L (98-107) Carbon Dioxide Level 36 mmol/L (21-32) Anion Gap 6 (6-14) Blood Urea Nitrogen 45 mg/dL (7-20) Creatinine 1.2 mg/dL (0.6-1.0) Estimated GFR (Cockcroft-Gault) 42.8 Glucose Level 245 mg/dL (70-99) Calcium Level 8.5 mg/dL (8.5-10.1) Magnesium Level 2.1 mg/dL (1.8-2.4) Assessment and Plan Assessmemt and Plan Problems Medical Problems: (1) Congestive heart failure Status: Acute (2) Elevated troponin level Status: Acute (3) Generalized weakness Status: Acute (4) Hyperglycemia due to diabetes mellitus Status: Acute (5) Multiple falls Status: Acute (6) Requires supplemental oxygen Status: Acute (7) Respiratory failure with hypoxia Status: Acute (8) T10 vertebral fracture Status: Acute (9) UTI (urinary tract infection) Status: Acute Comment Review of Relevant I have reviewed the following items irving (where applicable) has been applied. Medications: Current Medications Medications (Trade) Dose Ordered Sig/Glenn Route PRN Reason Start Time Stop Time Status Last Admin Dose Admin Doxycycline Hyclate (Vibra-Tab) 100 mg BID PO 12/30/20 21:00 12/31/20 09:01 Furosemide (Lasix) 40 mg 1X ONCE IVP 12/31/20 11:30 12/31/20 11:31 DC 12/31/20 13:56 Potassium Chloride (Klor-Con) 40 meq 1X ONCE PO 12/31/20 11:30 12/31/20 11:31 DC 12/31/20 13:55 Justifications for Admission Other Justification Symptomatic cholelithiasis SYEDA RICHARDSON MD Dec 31, 2020 17:09
[2020-12-31] MEDS ORDERED: FUROSEMIDE 100 MG/10 ML VIAL. IVP ONE (17:30)
[2020-12-31 19:40] VITALS: BP 161/71
[2020-12-31] MEDS: INSULIN GLARGINE SYRINGE. SQ SCH (22:10)
[2020-12-31 23:13] VITALS: BP 164/71
[2021-01-01] MEDS: fentaNYL PF VIAL 100 MCG/2 ML VIAL IVP PRN ×2 (01:36→15:28)
[2021-01-01 03:55] VITALS: BP 167/70
[2021-01-01] MEDS: HEPARIN for SUB-Q USE 5,000 UNIT/ML VIAL. SQ SCH ×3 (05:09→22:00)
[2021-01-01] MEDS: HYDROcodone/APAP 10/325 1 TAB TABLET PO PRN ×3 (05:11→21:56)
[2021-01-01 07:41] VITALS: BP 165/72
[2021-01-01] MEDS: INSULIN LISPRO 300 UNITS/3 ML VIAL. SQ SCH ×6 (08:00→17:21)
[2021-01-01 08:15] LABS: BASO % 1 % (0-3); EOS % 0 % (0-3); HEMATOCRIT 45.1 % (36.0-47.0); HEMOGLOBIN 14.2 g/dL (12.0-15.5); LYMPH # 0.5 x10^3/uL (1.0-4.8); LYMPH % 8 % (24-48); MEAN CORPUSCULAR HEMOGLOBIN 29 pg (25-35); MEAN CORPUSCULAR HGB CONC 31 g/dL (31-37); MEAN CORPUSCULAR VOLUME 93 fL (79-100); MONO # 0.5 x10^3/uL (0.0-1.1); MONO % 8 % (0-9); NEUT # 5.3 x10^3/uL (1.8-7.7); NEUT % 83 % (31-73); PLATELET COUNT 122 x10^3/uL (140-400); RED BLOOD COUNT 4.84 x10^6/uL (3.50-5.40); RED CELL DISTRIBUTION WIDTH 15.5 % (11.5-14.5); WHITE BLOOD COUNT 6.4 x10^3/uL (4.0-11.0)
[2021-01-01 08:30] LABS: CALCIUM 8.4 mg/dL (8.5-10.1); CREATININE 1.1 mg/dL (0.6-1.0); GFR 47.3; MAGNESIUM 1.8 mg/dL (1.8-2.4)
[2021-01-01 08:32] LABS: POTASSIUM 2.9 mmol/L (3.5-5.1)
--- NOTE | 2021-01-01 09:30 | PDOC ---
PROGRESS NOTES Date of Service DATE: 01/01/21 TIME: 09:28 Subjective Subjective She admits continued back pain with movement. Objective Objective Vital Signs Date Time Temp Pulse Resp B/P (MAP) Pulse Ox O2 Delivery O2 Flow Rate FiO2 01/01/21 07:41 97.8 78 20 165/72 (103) 94 Nasal Cannula 2.0 97.8 Intake and Output 01/01/21 07:00 Intake Total 761 ml Output Total 3350 ml Balance -2589 ml Intake Oral 761 ml Output Urine Total 3350 ml # Bowel Movements 1 Physical Exam Physical Exam She is alert,supine in bed and receiving oxygen by nasal canula and she had TLSO support in place loosely. Assessment Assessment Problems Medical Problems: (1) Congestive heart failure Status: Acute (2) Elevated troponin level Status: Acute (3) Generalized weakness Status: Acute (4) Hyperglycemia due to diabetes mellitus Status: Acute (5) Multiple falls Status: Acute (6) Requires supplemental oxygen Status: Acute (7) Respiratory failure with hypoxia Status: Acute (8) T10 vertebral fracture Status: Acute (9) UTI (urinary tract infection) Status: Acute Plan Plan of Care To ask interventional radiology for consideration of T10 kyphoplasty as she agrees for it. Comment Review of Relevant I have reviewed the following items irving (where applicable) has been applied. Labs Laboratory Tests Test 12/30/20 11:35 12/30/20 16:44 12/30/20 20:54 12/31/20 08:33 Glucose (Fingerstick) 178 mg/dL (70-99) 186 mg/dL (70-99) 240 mg/dL (70-99) 239 mg/dL (70-99) Test 12/31/20 08:35 12/31/20 12:14 12/31/20 17:12 12/31/20 20:56 White Blood Count 6.6 x10^3/uL (4.0-11.0) Red Blood Count 4.65 x10^6/uL (3.50-5.40) Hemoglobin 14.1 g/dL (12.0-15.5) Hematocrit 43.1 % (36.0-47.0) Mean Corpuscular Volume 93 fL (79-100) Mean Corpuscular Hemoglobin 30 pg (25-35) Mean Corpuscular Hemoglobin Concent 33 g/dL (31-37) Red Cell Distribution Width 15.4 % (11.5-14.5) Platelet Count 139 x10^3/uL (140-400) Neutrophils (%) (Auto) 82 % (31-73) Lymphocytes (%) (Auto) 8 % (24-48) Monocytes (%) (Auto) 9 % (0-9) Eosinophils (%) (Auto) 0 % (0-3) Basophils (%) (Auto) 1 % (0-3) Neutrophils # (Auto) 5.5 x10^3/uL (1.8-7.7) Lymphocytes # (Auto) 0.5 x10^3/uL (1.0-4.8) Monocytes # (Auto) 0.6 x10^3/uL (0.0-1.1) Eosinophils # (Auto) 0.0 x10^3/uL (0.0-0.7) Basophils # (Auto) 0.0 x10^3/uL (0.0-0.2) Sodium Level 142 mmol/L (136-145) Potassium Level 3.1 mmol/L (3.5-5.1) Chloride Level 100 mmol/L (98-107) Carbon Dioxide Level 36 mmol/L (21-32) Anion Gap 6 (6-14) Blood Urea Nitrogen 45 mg/dL (7-20) Creatinine 1.2 mg/dL (0.6-1.0) Estimated GFR (Cockcroft-Gault) 42.8 Glucose Level 245 mg/dL (70-99) Calcium Level 8.5 mg/dL (8.5-10.1) Magnesium Level 2.1 mg/dL (1.8-2.4) Glucose (Fingerstick) 224 mg/dL (70-99) 127 mg/dL (70-99) 132 mg/dL (70-99) Test 01/01/21 07:30 01/01/21 07:44 White Blood Count 6.4 x10^3/uL (4.0-11.0) Red Blood Count 4.84 x10^6/uL (3.50-5.40) Hemoglobin 14.2 g/dL (12.0-15.5) Hematocrit 45.1 % (36.0-47.0) Mean Corpuscular Volume 93 fL (79-100) Mean Corpuscular Hemoglobin 29 pg (25-35) Mean Corpuscular Hemoglobin Concent 31 g/dL (31-37) Red Cell Distribution Width 15.5 % (11.5-14.5) Platelet Count 122 x10^3/uL (140-400) Neutrophils (%) (Auto) 83 % (31-73) Lymphocytes (%) (Auto) 8 % (24-48) Monocytes (%) (Auto) 8 % (0-9) Eosinophils (%) (Auto) 0 % (0-3) Basophils (%) (Auto) 1 % (0-3) Neutrophils # (Auto) 5.3 x10^3/uL (1.8-7.7) Lymphocytes # (Auto) 0.5 x10^3/uL (1.0-4.8) Monocytes # (Auto) 0.5 x10^3/uL (0.0-1.1) Eosinophils # (Auto) 0.0 x10^3/uL (0.0-0.7) Basophils # (Auto) 0.0 x10^3/uL (0.0-0.2) Sodium Level 146 mmol/L (136-145) Potassium Level 2.9 mmol/L (3.5-5.1) Chloride Level 99 mmol/L (98-107) Carbon Dioxide Level 40 mmol/L (21-32) Anion Gap 7 (6-14) Blood Urea Nitrogen 40 mg/dL (7-20) Creatinine 1.1 mg/dL (0.6-1.0) Estimated GFR (Cockcroft-Gault) 47.3 Glucose Level 212 mg/dL (70-99) Calcium Level 8.4 mg/dL (8.5-10.1) Magnesium Level 1.8 mg/dL (1.8-2.4) Glucose (Fingerstick) 201 mg/dL (70-99) Laboratory Tests Test 12/31/20 12:14 12/31/20 17:12 12/31/20 20:56 01/01/21 07:30 Glucose (Fingerstick) 224 mg/dL (70-99) 127 mg/dL (70-99) 132 mg/dL (70-99) White Blood Count 6.4 x10^3/uL (4.0-11.0) Red Blood Count 4.84 x10^6/uL (3.50-5.40) Hemoglobin 14.2 g/dL (12.0-15.5) Hematocrit 45.1 % (36.0-47.0) Mean Corpuscular Volume 93 fL (79-100) Mean Corpuscular Hemoglobin 29 pg (25-35) Mean Corpuscular Hemoglobin Concent 31 g/dL (31-37) Red Cell Distribution Width 15.5 % (11.5-14.5) Platelet Count 122 x10^3/uL (140-400) Neutrophils (%) (Auto) 83 % (31-73) Lymphocytes (%) (Auto) 8 % (24-48) Monocytes (%) (Auto) 8 % (0-9) Eosinophils (%) (Auto) 0 % (0-3) Basophils (%) (Auto) 1 % (0-3) Neutrophils # (Auto) 5.3 x10^3/uL (1.8-7.7) Lymphocytes # (Auto) 0.5 x10^3/uL (1.0-4.8) Monocytes # (Auto) 0.5 x10^3/uL (0.0-1.1) Eosinophils # (Auto) 0.0 x10^3/uL (0.0-0.7) Basophils # (Auto) 0.0 x10^3/uL (0.0-0.2) Sodium Level 146 mmol/L (136-145) Potassium Level 2.9 mmol/L (3.5-5.1) Chloride Level 99 mmol/L (98-107) Carbon Dioxide Level 40 mmol/L (21-32) Anion Gap 7 (6-14) Blood Urea Nitrogen 40 mg/dL (7-20) Creatinine 1.1 mg/dL (0.6-1.0) Estimated GFR (Cockcroft-Gault) 47.3 Glucose Level 212 mg/dL (70-99) Calcium Level 8.4 mg/dL (8.5-10.1) Magnesium Level 1.8 mg/dL (1.8-2.4) Test 01/01/21 07:44 Glucose (Fingerstick) 201 mg/dL (70-99) Microbiology 12/29/20 Blood Culture - Preliminary, Resulted NO GROWTH AFTER 2 DAYS 12/27/20 Urine Culture - Final, Complete 12/27/20 Antimicrobic Susceptibility - Final, Complete Medications Current Medications Ceftriaxone Sodium (Rocephin) 2 gm 1X ONCE IVP Last administered on 12/27/20at 02:19; Start 12/27/20 at 02:00; Stop 12/27/20 at 02:01; Status DC Vancomycin HCl 250 ml @ 250 mls/hr 1X ONCE IV ; Start 12/27/20 at 01:45; Stop 12/27/20 at 02:44; Status UNV Vancomycin HCl (Vanco Per Pharmacy) 1 each PRN DAILY PRN MC SEE COMMENTS Last administered on 12/29/20at 09:15; Start 12/27/20 at 01:45; Stop 12/29/20 at 17:35; Status DC Fentanyl Citrate (Fentanyl 2ml Vial) 50 mcg 1X ONCE IVP Last administered on 12/27/20at 02:05; Start 12/27/20 at 02:00; Stop 12/27/20 at 02:01; Status DC Nitroglycerin (Nitro-Bid Oint) 1 inch 1X ONCE TP Last administered on 12/27/20at 02:06; Start 12/27/20 at 02:00; Stop 12/27/20 at 02:01; Status DC Vancomycin HCl 2 gm/Sodium Chloride 500 ml @ 250 mls/hr 1X ONCE IV Last administered on 12/27/20at 02:20; Start 12/27/20 at 02:30; Stop 12/27/20 at 04:29; Status DC Furosemide (Lasix) 20 mg 1X ONCE IVP Last administered on 12/27/20at 03:43; Start 12/27/20 at 03:30; Stop 12/27/20 at 03:31; Status DC Insulin Human Regular (HumuLIN R VIAL) 10 unit 1X ONCE IV Last administered on 12/27/20at 03:41; Start 12/27/20 at 03:30; Stop 12/27/20 at 03:31; Status DC Ondansetron HCl (Zofran) 4 mg PRN Q8HRS PRN IVP NAUSEA/VOMITING 1ST CHOICE; Start 12/27/20 at 03:15; Stop 12/28/20 at 03:14; Status DC Fentanyl Citrate (Fentanyl 2ml Vial) 50 mcg PRN Q24HRS PRN IVP SEVERE PAIN 7- 10; Start 12/27/20 at 03:15; Stop 12/27/20 at 03:25; Status DC Fentanyl Citrate (Fentanyl 2ml Vial) 50 mcg PRN Q2HRS PRN IVP SEVERE PAIN 7-10 Last administered on 12/27/20at 04:53; Start 12/27/20 at 03:30; Stop 12/28/20 at 03:29; Status DC Vancomycin HCl 1.75 gm/Sodium Chloride 500 ml @ 250 mls/hr Q24H IV Last administered on 12/29/20at 04:19; Start 12/28/20 at 04:00; Stop 12/29/20 at 10:35; Status DC Vancomycin HCl (Vancomycin Trough Level) 1 each 1X ONCE MC Last administered on 12/29/20at 03:30; Start 12/29/20 at 03:30; Stop 12/29/20 at 03:31; Status DC Influenza Virus Vaccine Quadrival (Flulaval Quad [id number] Syringe) 0.5 ml ONCE ONCE VAX IM Last administered on 12/27/20at 17:54; Start 12/27/20 at 09:00; Stop 12/27/20 at 09:01; Status DC Lactobacillus Rhamnosus (Culturelle) 1 cap BID PO Last administered on 12/31/20at 22:01; Start 12/27/20 at 09:00 Heparin Sodium (Porcine) (Heparin Sodium) 4,000 unit 1X ONCE IV Last ad ministered on 12/27/20at 09:13; Start 12/27/20 at 09:00; Stop 12/27/20 at 09:01; Status DC Heparin Sodium/ Dextrose 250 ml @ 10 mls/hr CONT PRN IV PER PROTOCOL Last administered on 12/27/20at 09:17; Start 12/27/20 at 09:00; Stop 12/29/20 at 21:19; Status DC Heparin Sodium (Porcine) (Heparin Sodium) 3,000 unit PRN Q6HRS PRN IV FOR UFH LEVEL LESS THAN 0.2; Start 12/27/20 at 09:00; Stop 12/29/20 at 21:19; Status DC Info (Anti-Coagulation Monitoring By Pharmacy) 1 each PRN DAILY PRN MC PER PROTOCOL Last administered on 12/27/20at 15:10; Start 12/27/20 at 09:00; Stop 12/29/20 at 21:19; Status DC Piperacillin Sod/ Tazobactam Sod (Zosyn Per Pharmacy) 1 each PRN DAILY PRN MC SEE COMMENTS; Start 12/27/20 at 09:15; Stop 12/30/20 at 09:13; Status DC Nystatin (Nystop) 1 amy BID TP Last administered on 12/31/20at 22:07; Start 12/27/20 at 10:00 Dextrose (Dextrose 50%-Water Syringe) 12.5 gm PRN Q15MIN PRN IV SEE COMMENTS; Start 12/27/20 at 09:30; Stop 12/27/20 at 09:26; Status DC Piperacillin Sod/ Tazobactam Sod 2.25 gm/Sodium Chloride 50 ml @ 100 mls/hr Q6HRS IV Last administered on 12/28/20at 07:28; Start 12/27/20 at 09:30; Stop 12/28/20 at 10:47; Status DC Insulin Human Lispro (HumaLOG) 0-7 UNITS TIDWMEALS SQ ; Start 12/27/20 at 12:00; Stop 12/27/20 at 09:32; Status DC Dextrose (Dextrose 50%-Water Syringe) 12.5 gm PRN Q15MIN PRN IV SEE COMMENTS; Start 12/27/20 at 09:30 Insulin Human Lispro (HumaLOG) 0-7 UNITS TIDWMEALS SQ Last administered on 12/31/20at 13:59; Start 12/27/20 at 09:30 Furosemide (Lasix) 40 mg 1X ONCE IVP Last administered on 12/27/20at 11:08; Start 12/27/20 at 10:30; Stop 12/27/20 at 10:34; Status DC Aspirin (Laura Aspirin) 325 mg 1X ONCE PO Last administered on 12/27/20at 12:52; Start 12/27/20 at 11:30; Stop 12/27/20 at 11:31; Status DC Aspirin (Ecotrin) 81 mg [id number] PO Last administered on 12/31/20at 08:58; Start 12/28/20 at 08:00 Insulin Human Lispro (HumaLOG) 30 units 1X ONCE SQ Last administered on 12/27/20at 12:56; Start 12/27/20 at 12:45; Stop 12/27/20 at 12:51; Status DC Metoprolol Tartrate (Lopressor) 25 mg BID PO Last administered on 12/31/20at 22:02; Start 12/27/20 at 21:00 Hydralazine HCl (Apresoline Inj) 10 mg PRN Q4HRS PRN IVP ELEVATED BP, SEE COMMENTS; Start 12/27/20 at 16:30 Atorvastatin Calcium (Lipitor) 20 mg DAILY PO Last administered on 12/31/20at 08:58; Start 12/28/20 at 09:00 Lactic Acid (Lac-Hydrin) 1 amy BID TP Last administered on 12/31/20at 22:07; Start 12/27/20 at 21:00 Insulin Human Lispro (HumaLOG) 10 units 1X ONCE SQ Last administered on 12/28/20at 10:45; Start 12/28/20 at 10:45; Stop 12/28/20 at 10:47; Status DC Piperacillin Sod/ Tazobactam Sod 3.375 gm/Sodium Chloride 50 ml @ 100 mls/hr Q6HRS IV Last administered on 12/30/20at 05:47; Start 12/28/20 at 12:00; Stop 12/30/20 at 09:19; Status DC Furosemide (Lasix) 40 mg BID IVP Last administered on 12/29/20at 08:29; Start 12/28/20 at 12:30; Stop 12/29/20 at 12:16; Status DC Insulin Human Lispro (HumaLOG) 10 units 1X ONCE SQ Last administered on 12/28/20at 12:25; Start 12/28/20 at 12:30; Stop 12/28/20 at 12:31; Status DC Insulin Human Lispro (HumaLOG) 10 units 1X ONCE SQ Last administered on 12/28/20at 13:18; Start 12/28/20 at 13:15; Stop 12/28/20 at 13:16; Status DC Insulin Glargine (Lantus Syringe) 20 unit QHS SQ Last administered on 12/31/20at 22:10; Start 12/28/20 at 16:01 Insulin Human Lispro (HumaLOG) 5 units TIDWMEALS SQ Last administered on 12/31/20at 13:58; Start 12/28/20 at 17:00 Acetaminophen/ Hydrocodone Bitart (Lortab 5/325) 1 tab PRN Q4HRS PRN PO MOD TO SEVERE PAIN Last administered on 12/30/20at 08:39; Start 12/28/20 at 17:00; Stop 12/30/20 at 11:01; Status DC Acetaminophen (Tylenol) 650 mg PRN Q6HRS PRN PO MILD PAIN / TEMP > 100.3'F; Start 12/28/20 at 17:00 Daptomycin 550 mg/ Sodium Chloride 50 ml @ 100 mls/hr Q24H IV Last administered on 12/29/20at 12:00; Start 12/29/20 at 12:00; Stop 12/30/20 at 09:13; Status DC Furosemide (Lasix) 40 mg DAILY IVP ; Start 12/30/20 at 09:00; Stop 12/29/20 at 12:18; Status DC Furosemide (Lasix) 40 mg [id number] IVP Last administered on 12/31/20at 08:59; Start 12/29/20 at 16:00 Metolazone (Zaroxolyn) 2.5 mg 1X ONCE PO Last administered on 12/29/20at 12:23; Start 12/29/20 at 12:30; Stop 12/29/20 at 12:31; Status DC Fentanyl Citrate (Fentanyl 2ml Vial) 25 mcg PRN Q3HRS PRN IVP SEVERE PAIN 7-10 Last administered on 01/01/21at 01:36; Start 12/29/20 at 21:15 Heparin Sodium (Porcine) (Heparin Sodium) 5,000 unit Q8HRS SQ Last administered on 01/01/21at 05:09; Start 12/29/20 at 22:00 Ceftriaxone Sodium (Rocephin) 2 gm Q24H IVP Last administered on 12/31/20at 09:06; Start 12/30/20 at 10:00 Doxycycline Hyclate (Vibra-Tab) 100 mg BID PO Last administered on 12/31/20at 22:02; Start 12/30/20 at 21:00 Furosemide (Lasix) 40 mg 1X ONCE IVP Last administered on 12/30/20at 10:56; Start 12/30/20 at 09:45; Stop 12/30/20 at 09:46; Status DC Acetaminophen/ Hydrocodone Bitart (Lortab 10/325) 1 tab PRN Q6HRS PRN PO MODERATE - SEVERE PAIN Last administered on 01/01/21at 05:11; Start 12/30/20 at 11:00 Tizanidine HCl (Zanaflex) 4 mg PRN Q8HRS PRN PO MUSCLE SPASMS; Start 12/30/20 at 11:15 Furosemide (Lasix) 40 mg 1X ONCE IVP Last administered on 12/31/20at 13:56; Start 12/31/20 at 11:30; Stop 12/31/20 at 11:31; Status DC Potassium Chloride (Klor-Con) 40 meq 1X ONCE PO Last administered on 12/31/20at 13:55; Start 12/31/20 at 11:30; Stop 12/31/20 at 11:31; Status DC Furosemide (Lasix) 80 mg 1X ONCE IVP Last administered on 12/31/20at 19:19; Start 12/31/20 at 17:30; Stop 12/31/20 at 17:31; Status DC Potassium Chloride (Klor-Con) 40 meq Q4H PO ; Start 01/01/21 at 10:00; Stop 01/01/21 at 14:01 Active Scripts Active Vitals/I & O Vital Sign - Last 24 Hours 12/31/20 12/31/20 12/31/20 12/31/20 10:58 13:57 15:00 16:10 Temp 98.0 97.7 98.0 97.7 Pulse 65 75 Resp 22 20 B/P (MAP) 130/60 (83) 145/65 (91) Pulse Ox 90 90 90 90 O2 Delivery Nasal Cannula Nasal Cannula Nasal Cannula Nasal Cannula O2 Flow Rate 2.0 2.0 2.0 2.0 12/31/20 12/31/20 12/31/20 12/31/20 19:40 20:00 22:02 22:04 Temp 97.9 97.9 Pulse 76 76 Resp 18 B/P (MAP) 161/71 (101) 161/71 Pulse Ox 96 O2 Delivery Nasal Cannula Nasal Cannula Nasal Cannula O2 Flow Rate 2.0 2.0 2.0 12/31/20 12/31/20 01/01/21 01/01/21 22:34 23:13 01:36 03:55 Temp 97.7 98.0 97.7 98.0 Pulse 70 74 Resp 21 21 B/P (MAP) 164/71 (102) 167/70 (102) Pulse Ox 95 95 O2 Delivery Nasal Cannula Nasal Cannula Nasal Cannula Nasal Cannula O2 Flow Rate 2.0 2.0 2.0 2.0 01/01/21 01/01/21 01/01/21 05:11 05:41 07:41 Temp 97.8 97.8 Pulse 78 Resp 20 B/P (MAP) 165/72 (103) Pulse Ox 94 O2 Delivery Nasal Cannula Nasal Cannula Nasal Cannula O2 Flow Rate 2.0 2.0 Intake and Output 12/31/20 12/31/20 01/01/21 15:00 23:00 07:00 Intake Total 474 ml 237 ml 50 ml Output Total 1550 ml 1800 ml Balance 474 ml -1313 ml -1750 ml Justifications for Admission Other Justification Symptomatic cholelithiasis SANGEETA MILLER MD Jan 01, 2021 09:30
[2021-01-01] MEDS: ATORVASTATIN CALCIUM 20 MG TABLET PO SCH ×2 (09:43→21:48)
[2021-01-01] MEDS: ASPIRIN ENTERIC COATED 81 MG TABLET.DR. PO SCH (09:43)
[2021-01-01] MEDS: AMMONIUM LACTATE 12% TOPICAL LOTION 225GM BOTTLE. TP SCH ×2 (09:43→21:00)
[2021-01-01] MEDS: NYSTATIN TOPICAL POWDER 15GM BOTTLE. TP SCH ×2 (09:43→21:00)
[2021-01-01] MEDS: LACTOBACILLUS RHAMNOSUS GG 1 CAPSULE. PO SCH ×2 (09:43→21:48)
[2021-01-01] MEDS: DOXYCYCLINE HYCLATE 100 MG TABLET PO SCH (09:43)
[2021-01-01] MEDS: POTASSIUM CHLORIDE 20 MEQ TABLET.ER. PO SCH ×2 (09:44→14:07)
[2021-01-01] MEDS: METOPROLOL TART IMMED RELEASE 25 MG TABLET. PO SCH ×2 (09:44→21:48)
[2021-01-01] MEDS: FUROSEMIDE 40 MG/4 ML VIAL. IVP SCH ×2 (09:44→15:28)
[2021-01-01] MEDS: cefTRIAXone IV Push 2 GM VIAL. IVP SCH (09:45)
--- NOTE | 2021-01-01 10:13 | PDOC ---
Infectious Disease Note Subjective: Subjective Patient complains of back discomfort Appetite remains poor Denies any fever, chills, nausea, vomiting, diarrhea, abdominal pain Vital Signs: Vital Signs Vital Signs Date Time Temp Pulse Resp B/P (MAP) Pulse Ox O2 Delivery O2 Flow Rate FiO2 01/01/21 09:44 94 Nasal Cannula 2.0 01/01/21 09:44 78 165/72 01/01/21 07:41 97.8 20 97.8 Physical Exam: PHYSICAL EXAM GENERAL: Alert, oriented x 3 female, propped up in bed, in no acute distress, on nasal O2. Has back brace in place HEENT: Normocephalic, atraumatic. Oral mucosa moist, no thrush. NECK: Supple. LUNGS: Crackles present bilaterally. No accessory muscle use. HEART: S1, S2. No murmurs. ABDOMEN: Soft, obese. Bowel sounds present. EXTREMITIES: Lower extremity edema, dry scaly skin and chronic venous stasis changes present. No warmth. NEUROLOGIC: Alert and oriented x 3, grossly nonfocal. PSYCHIATRIC: Calm and cooperative. MUSCULOSKELETAL: Changes suggestive of DJD.. Medications: Inpatient Meds: Medications reviewed. Labs: Lab Laboratory Tests Test 12/31/20 12:14 12/31/20 17:12 12/31/20 20:56 01/01/21 07:30 Glucose (Fingerstick) 224 mg/dL (70-99) 127 mg/dL (70-99) 132 mg/dL (70-99) White Blood Count 6.4 x10^3/uL (4.0-11.0) Red Blood Count 4.84 x10^6/uL (3.50-5.40) Hemoglobin 14.2 g/dL (12.0-15.5) Hematocrit 45.1 % (36.0-47.0) Mean Corpuscular Volume 93 fL (79-100) Mean Corpuscular Hemoglobin 29 pg (25-35) Mean Corpuscular Hemoglobin Concent 31 g/dL (31-37) Red Cell Distribution Width 15.5 % (11.5-14.5) Platelet Count 122 x10^3/uL (140-400) Neutrophils (%) (Auto) 83 % (31-73) Lymphocytes (%) (Auto) 8 % (24-48) Monocytes (%) (Auto) 8 % (0-9) Eosinophils (%) (Auto) 0 % (0-3) Basophils (%) (Auto) 1 % (0-3) Neutrophils # (Auto) 5.3 x10^3/uL (1.8-7.7) Lymphocytes # (Auto) 0.5 x10^3/uL (1.0-4.8) Monocytes # (Auto) 0.5 x10^3/uL (0.0-1.1) Eosinophils # (Auto) 0.0 x10^3/uL (0.0-0.7) Basophils # (Auto) 0.0 x10^3/uL (0.0-0.2) Sodium Level 146 mmol/L (136-145) Potassium Level 2.9 mmol/L (3.5-5.1) Chloride Level 99 mmol/L (98-107) Carbon Dioxide Level 40 mmol/L (21-32) Anion Gap 7 (6-14) Blood Urea Nitrogen 40 mg/dL (7-20) Creatinine 1.1 mg/dL (0.6-1.0) Estimated GFR (Cockcroft-Gault) 47.3 Glucose Level 212 mg/dL (70-99) Calcium Level 8.4 mg/dL (8.5-10.1) Magnesium Level 1.8 mg/dL (1.8-2.4) Test 01/01/21 07:44 Glucose (Fingerstick) 201 mg/dL (70-99) Objective: Assessment: 1. Bacteremia, gram-positive cocci present on admission on 12/27/2020, staph hemolyticus and epidermidis likely contaminant 2. Generalized weakness Multiple falls for a couple of months with a T10 fracture 3. Acute kidney injury. 4. Congestive heart failure. 5. Chronic venous stasis. 6. E. coli urinary tract infection. 7. Possible mild superimposed cellulitis with underlying chronic venous stasis. Plan: Plan of Care Continue ceftriaxone DC doxycycline Follow repeat blood cultures negative so far Continue supportive care TIFFANIE WISDOM MD Jan 01, 2021 10:13
[2021-01-01 11:02] VITALS: BP 145/64
--- NOTE | 2021-01-01 12:14 | PDOC ---
Renal-Progress Notes Subjective Notes Notes NO NEW COMPLAINTS History of Present Illness Hx of present illness LESS SOB, SOME BACK PAIN Vitals Vitals Vital Signs Date Time Temp Pulse Resp B/P (MAP) Pulse Ox O2 Delivery O2 Flow Rate FiO2 01/01/21 11:02 98.0 65 20 145/64 (91) 95 Nasal Cannula 2.0 98.0 Weight Weight [ ] I.O. Intake and Output Intake and Output 01/01/21 07:00 Intake Total 761 ml Output Total 3350 ml Balance -2589 ml Intake Oral 761 ml Output Urine Total 3350 ml # Bowel Movements 1 Labs Labs Laboratory Tests Test 12/31/20 12:14 12/31/20 17:12 12/31/20 20:56 01/01/21 07:30 Glucose (Fingerstick) 224 mg/dL (70-99) 127 mg/dL (70-99) 132 mg/dL (70-99) White Blood Count 6.4 x10^3/uL (4.0-11.0) Red Blood Count 4.84 x10^6/uL (3.50-5.40) Hemoglobin 14.2 g/dL (12.0-15.5) Hematocrit 45.1 % (36.0-47.0) Mean Corpuscular Volume 93 fL (79-100) Mean Corpuscular Hemoglobin 29 pg (25-35) Mean Corpuscular Hemoglobin Concent 31 g/dL (31-37) Red Cell Distribution Width 15.5 % (11.5-14.5) Platelet Count 122 x10^3/uL (140-400) Neutrophils (%) (Auto) 83 % (31-73) Lymphocytes (%) (Auto) 8 % (24-48) Monocytes (%) (Auto) 8 % (0-9) Eosinophils (%) (Auto) 0 % (0-3) Basophils (%) (Auto) 1 % (0-3) Neutrophils # (Auto) 5.3 x10^3/uL (1.8-7.7) Lymphocytes # (Auto) 0.5 x10^3/uL (1.0-4.8) Monocytes # (Auto) 0.5 x10^3/uL (0.0-1.1) Eosinophils # (Auto) 0.0 x10^3/uL (0.0-0.7) Basophils # (Auto) 0.0 x10^3/uL (0.0-0.2) Sodium Level 146 mmol/L (136-145) Potassium Level 2.9 mmol/L (3.5-5.1) Chloride Level 99 mmol/L (98-107) Carbon Dioxide Level 40 mmol/L (21-32) Anion Gap 7 (6-14) Blood Urea Nitrogen 40 mg/dL (7-20) Creatinine 1.1 mg/dL (0.6-1.0) Estimated GFR (Cockcroft-Gault) 47.3 Glucose Level 212 mg/dL (70-99) Calcium Level 8.4 mg/dL (8.5-10.1) Magnesium Level 1.8 mg/dL (1.8-2.4) Test 01/01/21 07:44 01/01/21 11:16 Glucose (Fingerstick) 201 mg/dL (70-99) 276 mg/dL (70-99) Micro Micro Microbiology 12/29/20 Blood Culture - Preliminary, Resulted NO GROWTH AFTER 3 DAYS 12/27/20 Urine Culture - Final, Complete 12/27/20 Antimicrobic Susceptibility - Final, Complete Review of Systems Constitutional: yes: alert, oriented Ears/Nose/Throat: Yes: no symptom reported Eyes: Yes: no symptom reported Pulmonary: Yes dyspnea Cardiovascular: Yes no symptom reported Gastrointestional: Yes: no symptom reported Musculoskeletal: Yes: no symptom reported Skin: Yes no symptom reported Psychiatric/Neurological: Yes: no symptom reported Endocrine: Yes: no symptom reported Physical Exam General Appearance: no apparent distress Respiratory: bilateral CTA Heart: S1S2 Abdomen: soft, bowel sounds present Genitourinary: bladder flat Extremities: pulses present Neurology: alert, oriented, follow commands Musculoskeletal: Osteoarthritis Assessment Assessment IMP TRICIA-CR DOWN TO 1.1 HYPOKALEMIA CHF-PROB DIASTOLIC ACUTE ON CHRONIC HYPERGLYCEMIA-NO KETOTIC-IMPROVED ELEVATED TROPONIN LEVEL MULTIPLE FALL HX T 10 FX LE EDEMA POSSIBLE BILATERAL PRETIBIAL AREA CELLULITIS. BACTEREMIA G + E COLI UTI PLAN CONT LASIX REPLACE K NEEDS MORE NEG FLUID BALANCE ANTIBIOTICS CONTROL BG WILL FOLLOW CARLTON BYRNE MD Jan 01, 2021 12:14
[2021-01-01 14:24] VITALS: BP 154/66
[2021-01-01 19:48] VITALS: BP 198/80
[2021-01-01] MEDS: INSULIN GLARGINE SYRINGE. SQ SCH (21:59)
[2021-01-01 23:08] VITALS: BP 174/75
[2021-01-02 03:20] LABS: BASO % 1 % (0-3); EOS % 1 % (0-3); HEMATOCRIT 43.6 % (36.0-47.0); HEMOGLOBIN 14.2 g/dL (12.0-15.5); LYMPH # 0.7 x10^3/uL (1.0-4.8); LYMPH % 9 % (24-48); MEAN CORPUSCULAR HEMOGLOBIN 30 pg (25-35); MEAN CORPUSCULAR HGB CONC 33 g/dL (31-37); MEAN CORPUSCULAR VOLUME 93 fL (79-100); MONO # 0.8 x10^3/uL (0.0-1.1); MONO % 10 % (0-9); NEUT # 6.1 x10^3/uL (1.8-7.7); NEUT % 80 % (31-73); PLATELET COUNT 132 x10^3/uL (140-400); RED BLOOD COUNT 4.68 x10^6/uL (3.50-5.40); RED CELL DISTRIBUTION WIDTH 15.5 % (11.5-14.5); WHITE BLOOD COUNT 7.7 x10^3/uL (4.0-11.0)
[2021-01-02] MEDS: HYDROcodone/APAP 10/325 1 TAB TABLET PO PRN ×3 (03:32→20:37)
[2021-01-02 03:58] VITALS: BP 152/70
[2021-01-02 04:02] LABS: CALCIUM 8.7 mg/dL (8.5-10.1); GFR 52.8; POTASSIUM 3.5 mmol/L (3.5-5.1)
[2021-01-02] MEDS: HEPARIN for SUB-Q USE 5,000 UNIT/ML VIAL. SQ SCH ×3 (05:56→20:20)
[2021-01-02 06:48] VITALS: BP 147/67
[2021-01-02] MEDS: INSULIN LISPRO 300 UNITS/3 ML VIAL. SQ SCH ×6 (08:00→16:21)
[2021-01-02] MEDS: ASPIRIN ENTERIC COATED 81 MG TABLET.DR. PO SCH (08:57)
[2021-01-02] MEDS: METOPROLOL TART IMMED RELEASE 25 MG TABLET. PO SCH ×2 (08:57→20:16)
[2021-01-02] MEDS: LACTOBACILLUS RHAMNOSUS GG 1 CAPSULE. PO SCH ×2 (08:57→20:16)
[2021-01-02] MEDS: FUROSEMIDE 40 MG/4 ML VIAL. IVP SCH ×2 (08:58→16:19)
[2021-01-02] MEDS: AMMONIUM LACTATE 12% TOPICAL LOTION 225GM BOTTLE. TP SCH ×2 (08:59→20:21)
[2021-01-02] MEDS: NYSTATIN TOPICAL POWDER 15GM BOTTLE. TP SCH ×2 (08:59→20:21)
[2021-01-02] MEDS: cefTRIAXone IV Push 2 GM VIAL. IVP SCH (09:00)
--- NOTE | 2021-01-02 09:15 | PDOC ---
[employer] PROGRESS NOTE Date of Service DOS: DATE: 01/01/21 TIME: 09:14 Chief Complaint Chief Complaint Congestive Heart Failure Elevated Troponin Level Generalized weakness Hyperglycemia due to DM Multiple Fall Status UTI History of Present Illness History of Present Illness 01/01 Late entry for January 01. Patient evaluated examined at bedside. Remains on antibiotics for now. Evaluated by Dr. Zaragoza and patient now agreeable to kyphoplasty. Continue antibiotics. Continue to use diuresis as needed. 12/31 Patient evaluated examined at bedside. Continue current plan. 12/30/2020 Patient seen and examined, in [facility] Distant Heart sounds heard on auscultation Patient is on 2 L oxygen per [place] Antibiotics changed to Ceftriaxone and Doxycycline for bacteremia per Infectious Disease Heparin Drip stopped, with addition of ASA and statin per Cardiology Lasix continue and increased today per Nephrology Discussed with RN, chart reviewed 12/29/2020 Patient seen and examined, in [facility], patient states feeling mildly better, but still weak Patient is on 2 L oxygen per [place] Antibiotics Hanging (Zosyn and Doxycycline) Heparin Drip hanging per cardiology Discussed with RN, chart reviewed. 12/28/2020 Patient was seen and examined, in NAD. Patient is on 2 L oxygen per [place] Antibiotics hanging Heparin Drip handing per cardiology Patient Troponin level still high, but trending down Discussed with RN, chart reviewed. Vitals/I&O Vitals/I&O: Vital Signs Date Time Temp Pulse Resp B/P (MAP) Pulse Ox O2 Delivery O2 Flow Rate FiO2 01/02/21 08:57 66 147/67 01/02/21 06:48 97.1 16 91 Nasal Cannula 2.0 97.1 I & O 01/01/21 01/01/21 01/02/21 15:00 23:00 07:00 Intake Total 480 ml 300 ml 100 ml Output Total 1550 ml 850 ml Balance 480 ml -1250 ml -750 ml Physical Exam Physical Exam: GENERAL: Alert, oriented x 3 female, propped up in bed, in no acute distress, on nasal O2. Has back brace in place HEENT: Normocephalic, atraumatic. Oral mucosa moist, no thrush. NECK: Supple. LUNGS: Crackles present bilaterally. No accessory muscle use. HEART: S1, S2. No murmurs. ABDOMEN: Soft, obese. Bowel sounds present. EXTREMITIES: Lower extremity edema, dry scaly skin and chronic venous stasis changes present. No warmth. NEUROLOGIC: Alert and oriented x 3, grossly nonfocal. PSYCHIATRIC: Calm and cooperative. MUSCULOSKELETAL: Changes suggestive of DJD.. Labs Labs: Laboratory Tests Test 01/01/21 11:16 01/01/21 17:18 01/01/21 21:15 01/02/21 03:10 Glucose (Fingerstick) 276 mg/dL (70-99) 211 mg/dL (70-99) 184 mg/dL (70-99) White Blood Count 7.7 x10^3/uL (4.0-11.0) Red Blood Count 4.68 x10^6/uL (3.50-5.40) Hemoglobin 14.2 g/dL (12.0-15.5) Hematocrit 43.6 % (36.0-47.0) Mean Corpuscular Volume 93 fL (79-100) Mean Corpuscular Hemoglobin 30 pg (25-35) Mean Corpuscular Hemoglobin Concent 33 g/dL (31-37) Red Cell Distribution Width 15.5 % (11.5-14.5) Platelet Count 132 x10^3/uL (140-400) Neutrophils (%) (Auto) 80 % (31-73) Lymphocytes (%) (Auto) 9 % (24-48) Monocytes (%) (Auto) 10 % (0-9) Eosinophils (%) (Auto) 1 % (0-3) Basophils (%) (Auto) 1 % (0-3) Neutrophils # (Auto) 6.1 x10^3/uL (1.8-7.7) Lymphocytes # (Auto) 0.7 x10^3/uL (1.0-4.8) Monocytes # (Auto) 0.8 x10^3/uL (0.0-1.1) Eosinophils # (Auto) 0.0 x10^3/uL (0.0-0.7) Basophils # (Auto) 0.0 x10^3/uL (0.0-0.2) Sodium Level 146 mmol/L (136-145) Potassium Level 3.5 mmol/L (3.5-5.1) Chloride Level 100 mmol/L (98-107) Carbon Dioxide Level 41 mmol/L (21-32) Anion Gap 5 (6-14) Blood Urea Nitrogen 42 mg/dL (7-20) Creatinine 1.0 mg/dL (0.6-1.0) Estimated GFR (Cockcroft-Gault) 52.8 Glucose Level 195 mg/dL (70-99) Calcium Level 8.7 mg/dL (8.5-10.1) Magnesium Level 2.0 mg/dL (1.8-2.4) Test 01/02/21 07:32 Glucose (Fingerstick) 185 mg/dL (70-99) Assessment and Plan Assessmemt and Plan Problems Medical Problems: (1) Congestive heart failure Status: Acute (2) Elevated troponin level Status: Acute (3) Generalized weakness Status: Acute (4) Hyperglycemia due to diabetes mellitus Status: Acute (5) Multiple falls Status: Acute (6) Requires supplemental oxygen Status: Acute (7) Respiratory failure with hypoxia Status: Acute (8) T10 vertebral fracture Status: Acute (9) UTI (urinary tract infection) Status: Acute Comment Review of Relevant I have reviewed the following items irving (where applicable) has been applied. Medications: Current Medications Medications (Trade) Dose Ordered Sig/Glenn Route PRN Reason Start Time Stop Time Status Last Admin Dose Admin Potassium Chloride (Klor-Con) 40 meq Q4H PO 01/01/21 10:00 01/01/21 14:01 DC 01/01/21 14:07 Justifications for Admission Other Justification Symptomatic cholelithiasis SYEDA RICHARDSON MD Jan 02, 2021 09:15
--- NOTE | 2021-01-02 09:52 | PDOC ---
CARDIOLOGY PROGRESS NOTE SUBJECTIVE: Patient denies any chest pain. She continues to be feeling weak. She is struggling from her compression fractures in her vertebrae. At home the patient does not recall the last time she walked around the grocery store or around her neighborhood and it appears that she has been fairly debilitated for several years. Currently reports her breathing is improved. No acute issues from nursing staff OBJECTIVE: Vital Signs/I&O: Vital Signs Date Time Temp Pulse Resp B/P (MAP) Pulse Ox O2 Delivery O2 Flow Rate FiO2 01/02/21 08:57 66 147/67 01/02/21 06:48 97.1 16 91 Nasal Cannula 2.0 97.1 I & O 01/01/21 01/01/21 01/02/21 15:00 23:00 07:00 Intake Total 480 ml 300 ml 100 ml Output Total 1550 ml 850 ml Balance 480 ml -1250 ml -750 ml Objective: On examination she appears to be fatigued and tired She is morbidly obese. She has normal heart tones. Lungs are notable for decreased breath sounds at the bases due to poor inspiratory effort Abdomen is obese protuberant nontender Extremities diminished pulses with 1+ pitting edema, improved from prior Neurologically there are no focal deficits but she has weakness in the bilateral lower extremities which is symmetric CURRENT MEDICATIONS: Lasix Aspirin Atorvastatin Metoprolol DIAGNOSTIC TESTING: Labs reviewed Creatinine is stable and potassium is normalized ASSESSMENT: 1. Acute on chronic decompensated diastolic heart failure 2. Acute kidney injury, improved 3. 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 4. Failure to thrive 5. Dyslipidemia 6. Morbid obesity 7. NSTEMI: Most likely type II PLAN: 1. Continue current medical therapy. Continue diuresis for goal net negative of 1 L for the next 24 hours 2. Supportive care from a cardiovascular standpoint. No acute indication for cardiac catheterization we will plan for an ischemic evaluation on outpatient basis with a stress test. Thank you for this consultation. We will follow along closely Justicifation of Admission Dx: Justifications for Admission: Justification of Admission Dx: Yes MONIQUE KAMINSKI MD Jan 02, 2021 09:52
[2021-01-02 10:14] VITALS: BP 153/66
--- NOTE | 2021-01-02 10:33 | PDOC ---
Renal-Progress Notes Subjective Notes Notes BACK PAIN History of Present Illness Hx of present illness NO ACUTE CHANGES Vitals Vitals Vital Signs Date Time Temp Pulse Resp B/P (MAP) Pulse Ox O2 Delivery O2 Flow Rate FiO2 01/02/21 10:14 97.9 70 19 153/66 (95) 93 Nasal Cannula 2.0 97.9 Weight Weight [ ] I.O. Intake and Output Intake and Output 01/02/21 07:00 Intake Total 880 ml Output Total 2400 ml Balance -1520 ml Intake Oral 880 ml Output Urine Total 2400 ml # Bowel Movements 3 Labs Labs Laboratory Tests Test 01/01/21 11:16 01/01/21 17:18 01/01/21 21:15 01/02/21 03:10 Glucose (Fingerstick) 276 mg/dL (70-99) 211 mg/dL (70-99) 184 mg/dL (70-99) White Blood Count 7.7 x10^3/uL (4.0-11.0) Red Blood Count 4.68 x10^6/uL (3.50-5.40) Hemoglobin 14.2 g/dL (12.0-15.5) Hematocrit 43.6 % (36.0-47.0) Mean Corpuscular Volume 93 fL (79-100) Mean Corpuscular Hemoglobin 30 pg (25-35) Mean Corpuscular Hemoglobin Concent 33 g/dL (31-37) Red Cell Distribution Width 15.5 % (11.5-14.5) Platelet Count 132 x10^3/uL (140-400) Neutrophils (%) (Auto) 80 % (31-73) Lymphocytes (%) (Auto) 9 % (24-48) Monocytes (%) (Auto) 10 % (0-9) Eosinophils (%) (Auto) 1 % (0-3) Basophils (%) (Auto) 1 % (0-3) Neutrophils # (Auto) 6.1 x10^3/uL (1.8-7.7) Lymphocytes # (Auto) 0.7 x10^3/uL (1.0-4.8) Monocytes # (Auto) 0.8 x10^3/uL (0.0-1.1) Eosinophils # (Auto) 0.0 x10^3/uL (0.0-0.7) Basophils # (Auto) 0.0 x10^3/uL (0.0-0.2) Sodium Level 146 mmol/L (136-145) Potassium Level 3.5 mmol/L (3.5-5.1) Chloride Level 100 mmol/L (98-107) Carbon Dioxide Level 41 mmol/L (21-32) Anion Gap 5 (6-14) Blood Urea Nitrogen 42 mg/dL (7-20) Creatinine 1.0 mg/dL (0.6-1.0) Estimated GFR (Cockcroft-Gault) 52.8 Glucose Level 195 mg/dL (70-99) Calcium Level 8.7 mg/dL (8.5-10.1) Magnesium Level 2.0 mg/dL (1.8-2.4) Test 01/02/21 07:32 Glucose (Fingerstick) 185 mg/dL (70-99) Micro Micro Microbiology 12/29/20 Blood Culture - Preliminary, Resulted NO GROWTH AFTER 3 DAYS 12/27/20 Urine Culture - Final, Complete 12/27/20 Antimicrobic Susceptibility - Final, Complete Review of Systems Constitutional: yes: alert, oriented Ears/Nose/Throat: Yes: no symptom reported Eyes: Yes: no symptom reported Pulmonary: Yes dyspnea Cardiovascular: Yes no symptom reported Gastrointestional: Yes: no symptom reported Musculoskeletal: Yes: no symptom reported Skin: Yes no symptom reported Psychiatric/Neurological: Yes: no symptom reported Endocrine: Yes: no symptom reported Physical Exam General Appearance: no apparent distress Respiratory: bilateral CTA Heart: S1S2 Abdomen: soft, bowel sounds present Genitourinary: bladder flat Extremities: pulses present Neurology: alert, oriented, follow commands Musculoskeletal: Osteoarthritis Assessment Assessment IMP TRICIA-CR DOWN TO 1.0 HYPOKALEMIA-CORRECTED MILD HYPERNATREMIA CHF-PROB DIASTOLIC ACUTE ON CHRONIC HYPERGLYCEMIA-NO KETOTIC-IMPROVED ELEVATED TROPONIN LEVEL MULTIPLE FALL HX T 10 FX LE EDEMA POSSIBLE BILATERAL PRETIBIAL AREA CELLULITIS. BACTEREMIA G + E COLI UTI PLAN CONT LASIX REPLACE K NEEDED NEEDS MORE NEG FLUID BALANCE ANTIBIOTICS CONTROL BG WILL FOLLOW CARLTON BYRNE MD Jan 02, 2021 10:33
[2021-01-02] MEDS: fentaNYL PF VIAL 100 MCG/2 ML VIAL IVP PRN (11:43)
--- NOTE | 2021-01-02 12:20 | PDOC ---
[employer] PROGRESS NOTE Date of Service DOS: DATE: 01/02/21 TIME: 12:18 Chief Complaint Chief Complaint Congestive Heart Failure Elevated Troponin Level Generalized weakness Hyperglycemia due to DM Multiple Fall Status UTI History of Present Illness History of Present Illness 01/02 Patient evaluated examined at bedside. No major overnight events. Still needs a fair bit of diuresis. Nephro cardiology infectious disease following. Continue antibiotics. Continue diuresis. Patient still okay with kyphoplasty. Plan of care discussed bedside RN. 01/01 Late entry for January 01. Patient evaluated examined at bedside. Remains on antibiotics for now. Evaluated by Dr. Zaragoza and patient now agreeable to kyphoplasty. Continue antibiotics. Continue to use diuresis as needed. 12/31 Patient evaluated examined at bedside. Continue current plan. 12/30/2020 Patient seen and examined, in [facility] Distant Heart sounds heard on auscultation Patient is on 2 L oxygen per [place] Antibiotics changed to Ceftriaxone and Doxycycline for bacteremia per Infectious Disease Heparin Drip stopped, with addition of ASA and statin per Cardiology Lasix continue and increased today per Nephrology Discussed with RN, chart reviewed 12/29/2020 Patient seen and examined, in [facility], patient states feeling mildly better, but still weak Patient is on 2 L oxygen per [place] Antibiotics Hanging (Zosyn and Doxycycline) Heparin Drip hanging per cardiology Discussed with RN, chart reviewed. 12/28/2020 Patient was seen and examined, in NAD. Patient is on 2 L oxygen per [place] Antibiotics hanging Heparin Drip handing per cardiology Patient Troponin level still high, but trending down Discussed with RN, chart reviewed. Vitals/I&O Vitals/I&O: Vital Signs Date Time Temp Pulse Resp B/P (MAP) Pulse Ox O2 Delivery O2 Flow Rate FiO2 01/02/21 12:13 93 Nasal Cannula 2.0 01/02/21 10:14 97.9 70 19 153/66 (95) 97.9 I & O 01/01/21 01/01/21 01/02/21 15:00 23:00 07:00 Intake Total 480 ml 300 ml 100 ml Output Total 1550 ml 850 ml Balance 480 ml -1250 ml -750 ml Physical Exam Physical Exam: GENERAL: Alert, oriented x 3 female, propped up in bed, in no acute distress, on nasal O2. Has back brace in place HEENT: Normocephalic, atraumatic. Oral mucosa moist, no thrush. NECK: Supple. LUNGS: Crackles present bilaterally. No accessory muscle use. HEART: S1, S2. No murmurs. ABDOMEN: Soft, obese. Bowel sounds present. EXTREMITIES: Lower extremity edema, dry scaly skin and chronic venous stasis changes present. No warmth. NEUROLOGIC: Alert and oriented x 3, grossly nonfocal. PSYCHIATRIC: Calm and cooperative. MUSCULOSKELETAL: Changes suggestive of DJD.. Labs Labs: Laboratory Tests Test 01/01/21 17:18 01/01/21 21:15 01/02/21 03:10 01/02/21 07:32 Glucose (Fingerstick) 211 mg/dL (70-99) 184 mg/dL (70-99) 185 mg/dL (70-99) White Blood Count 7.7 x10^3/uL (4.0-11.0) Red Blood Count 4.68 x10^6/uL (3.50-5.40) Hemoglobin 14.2 g/dL (12.0-15.5) Hematocrit 43.6 % (36.0-47.0) Mean Corpuscular Volume 93 fL (79-100) Mean Corpuscular Hemoglobin 30 pg (25-35) Mean Corpuscular Hemoglobin Concent 33 g/dL (31-37) Red Cell Distribution Width 15.5 % (11.5-14.5) Platelet Count 132 x10^3/uL (140-400) Neutrophils (%) (Auto) 80 % (31-73) Lymphocytes (%) (Auto) 9 % (24-48) Monocytes (%) (Auto) 10 % (0-9) Eosinophils (%) (Auto) 1 % (0-3) Basophils (%) (Auto) 1 % (0-3) Neutrophils # (Auto) 6.1 x10^3/uL (1.8-7.7) Lymphocytes # (Auto) 0.7 x10^3/uL (1.0-4.8) Monocytes # (Auto) 0.8 x10^3/uL (0.0-1.1) Eosinophils # (Auto) 0.0 x10^3/uL (0.0-0.7) Basophils # (Auto) 0.0 x10^3/uL (0.0-0.2) Sodium Level 146 mmol/L (136-145) Potassium Level 3.5 mmol/L (3.5-5.1) Chloride Level 100 mmol/L (98-107) Carbon Dioxide Level 41 mmol/L (21-32) Anion Gap 5 (6-14) Blood Urea Nitrogen 42 mg/dL (7-20) Creatinine 1.0 mg/dL (0.6-1.0) Estimated GFR (Cockcroft-Gault) 52.8 Glucose Level 195 mg/dL (70-99) Calcium Level 8.7 mg/dL (8.5-10.1) Magnesium Level 2.0 mg/dL (1.8-2.4) Test 01/02/21 11:03 Glucose (Fingerstick) 207 mg/dL (70-99) Assessment and Plan Assessmemt and Plan Problems Medical Problems: (1) Congestive heart failure Status: Acute (2) Elevated troponin level Status: Acute (3) Generalized weakness Status: Acute (4) Hyperglycemia due to diabetes mellitus Status: Acute (5) Multiple falls Status: Acute (6) Requires supplemental oxygen Status: Acute (7) Respiratory failure with hypoxia Status: Acute (8) T10 vertebral fracture Status: Acute (9) UTI (urinary tract infection) Status: Acute Comment Review of Relevant I have reviewed the following items irving (where applicable) has been applied. Justifications for Admission Other Justification Symptomatic cholelithiasis SYEDA RICHARDSON MD Jan 02, 2021 12:20
[2021-01-02 14:21] VITALS: BP 142/64
[2021-01-02] MEDS ORDERED: FURO20TA3 PO (16:31)
[2021-01-02] MEDS ORDERED: LISI1TAB39 PO (16:31)
[2021-01-02 19:41] VITALS: BP 169/73
[2021-01-02] MEDS: INSULIN GLARGINE SYRINGE. SQ SCH (20:24)
[2021-01-02 22:59] VITALS: BP 129/62
[2021-01-03 02:50] VITALS: BP 148/65
[2021-01-03] MEDS: HEPARIN for SUB-Q USE 5,000 UNIT/ML VIAL. SQ SCH ×3 (05:39→20:08)
[2021-01-03 06:04] LABS: BASO % 1 % (0-3); EOS # 0.2 x10^3/uL (0.0-0.7); EOS % 3 % (0-3); HEMATOCRIT 45.3 % (36.0-47.0); HEMOGLOBIN 14.2 g/dL (12.0-15.5); LYMPH # 1.1 x10^3/uL (1.0-4.8); LYMPH % 15 % (24-48); MEAN CORPUSCULAR HEMOGLOBIN 30 pg (25-35); MEAN CORPUSCULAR HGB CONC 31 g/dL (31-37); MEAN CORPUSCULAR VOLUME 94 fL (79-100); MONO # 0.9 x10^3/uL (0.0-1.1); MONO % 13 % (0-9); NEUT % 69 % (31-73); PLATELET COUNT 153 x10^3/uL (140-400); RED CELL DISTRIBUTION WIDTH 15.8 % (11.5-14.5); WHITE BLOOD COUNT 7.3 x10^3/uL (4.0-11.0)
[2021-01-03 06:24] LABS: CALCIUM 8.6 mg/dL (8.5-10.1); CREATININE 0.8 mg/dL (0.6-1.0); GFR 68.3; MAGNESIUM 2.1 mg/dL (1.8-2.4)
[2021-01-03 07:00] VITALS: BP 150/67
[2021-01-03] MEDS: INSULIN LISPRO 300 UNITS/3 ML VIAL. SQ SCH ×6 (08:00→18:47)
--- NOTE | 2021-01-03 08:11 | PDOC ---
Provider Note Date of Service: DATE: 01/03/21 TIME: 08:[address] and MRI reviewed. This is not a compression fracture but rather a distraction type injury ( chalkstick fracture) with significant separation of anterior fracture components. This morphology is not amenable to vertebroplasty/kyphoplasty. Justifications for Admission Other Justification Symptomatic cholelithiasis RIGO AHN MD Jan 03, 2021 08:11
--- NOTE | 2021-01-03 08:45 | PDOC ---
Infectious Disease Note Subjective: Subjective Patient without new complaints complains of back discomfort with movement Vital Signs: Vital Signs Vital Signs Date Time Temp Pulse Resp B/P (MAP) Pulse Ox O2 Delivery O2 Flow Rate FiO2 01/03/21 02:50 97.8 68 20 148/65 (92) 93 Nasal Cannula 2.0 97.8 Physical Exam: PHYSICAL EXAM GENERAL: Alert, oriented x 3 female, propped up in bed, in no acute distress, on nasal O2. Has back brace in place HEENT: Normocephalic, atraumatic. Oral mucosa moist, no thrush. NECK: Supple. LUNGS: Crackles present bilaterally. No accessory muscle use. HEART: S1, S2. No murmurs. ABDOMEN: Soft, obese. Bowel sounds present. EXTREMITIES: Lower extremity edema, dry scaly skin and chronic venous stasis changes present. No warmth. NEUROLOGIC: Alert and oriented x 3, grossly nonfocal. PSYCHIATRIC: Calm and cooperative. MUSCULOSKELETAL: Changes suggestive of DJD.. Medications: Inpatient Meds: Medications reviewed. Labs: Lab Laboratory Tests Test 01/02/21 11:03 01/02/21 16:20 01/02/21 20:23 01/03/21 04:30 Glucose (Fingerstick) 207 mg/dL (70-99) 120 mg/dL (70-99) 147 mg/dL (70-99) White Blood Count 7.3 x10^3/uL (4.0-11.0) Red Blood Count 4.80 x10^6/uL (3.50-5.40) Hemoglobin 14.2 g/dL (12.0-15.5) Hematocrit 45.3 % (36.0-47.0) Mean Corpuscular Volume 94 fL (79-100) Mean Corpuscular Hemoglobin 30 pg (25-35) Mean Corpuscular Hemoglobin Concent 31 g/dL (31-37) Red Cell Distribution Width 15.8 % (11.5-14.5) Platelet Count 153 x10^3/uL (140-400) Neutrophils (%) (Auto) 69 % (31-73) Lymphocytes (%) (Auto) 15 % (24-48) Monocytes (%) (Auto) 13 % (0-9) Eosinophils (%) (Auto) 3 % (0-3) Basophils (%) (Auto) 1 % (0-3) Neutrophils # (Auto) 5.0 x10^3/uL (1.8-7.7) Lymphocytes # (Auto) 1.1 x10^3/uL (1.0-4.8) Monocytes # (Auto) 0.9 x10^3/uL (0.0-1.1) Eosinophils # (Auto) 0.2 x10^3/uL (0.0-0.7) Basophils # (Auto) 0.0 x10^3/uL (0.0-0.2) Sodium Level 147 mmol/L (136-145) Potassium Level 3.0 mmol/L (3.5-5.1) Chloride Level 98 mmol/L (98-107) Carbon Dioxide Level 42 mmol/L (21-32) Anion Gap 7 (6-14) Blood Urea Nitrogen 37 mg/dL (7-20) Creatinine 0.8 mg/dL (0.6-1.0) Estimated GFR (Cockcroft-Gault) 68.3 Glucose Level 41 mg/dL (70-99) Calcium Level 8.6 mg/dL (8.5-10.1) Magnesium Level 2.1 mg/dL (1.8-2.4) Test 01/03/21 08:18 Glucose (Fingerstick) 118 mg/dL (70-99) Objective: Assessment: 1. Bacteremia, gram-positive cocci present on admission on 12/27/2020, staph hemolyticus and epidermidis likely contaminant 2. Generalized weakness Multiple falls for a couple of months with a T10 fracture 3. Acute kidney injury. 4. Congestive heart failure. 5. Chronic venous stasis. 6. E. coli urinary tract infection. 7. Possible mild superimposed cellulitis with underlying chronic venous stasis. Plan: Plan of Care Continue ceftriaxone for today Follow repeat blood cultures negative so far Continue supportive care TIFFANIE WISDOM MD Jan 03, 2021 08:45
--- NOTE | 2021-01-03 09:00 | PDOC ---
PROGRESS NOTES Date of Service DATE: 01/03/21 TIME: 08:57 Subjective Subjective She admits continued back pain with movement. Objective Objective Vital Signs Date Time Temp Pulse Resp B/P (MAP) Pulse Ox O2 Delivery O2 Flow Rate FiO2 01/03/21 02:50 97.8 68 20 148/65 (92) 93 Nasal Cannula 2.0 97.8 Intake and Output 01/03/21 06:59 Intake Total 1054 ml Output Total 2100 ml Balance -1046 ml Intake Oral 1054 ml Output Urine Total 2100 ml # Bowel Movements 3 Physical Exam Physical Exam She is alert,supine in bed and eating her breakfast and she continues with requiring significant assistance for mobility and most of her self care. TLSO is not supporting her back enough to ease her pain with mobility. Dr Parker felt she is not a candidate for kyphoplasty. Assessment Assessment Problems Medical Problems: (1) Congestive heart failure Status: Acute (2) Elevated troponin level Status: Acute (3) Generalized weakness Status: Acute (4) Hyperglycemia due to diabetes mellitus Status: Acute (5) Multiple falls Status: Acute (6) Requires supplemental oxygen Status: Acute (7) Respiratory failure with hypoxia Status: Acute (8) T10 vertebral fracture Status: Acute (9) UTI (urinary tract infection) Status: Acute Plan Plan of Care To consider RUIZ back support to see that it might help ease her pain with mobility. Comment Review of Relevant I have reviewed the following items irving (where applicable) has been applied. Labs Laboratory Tests Test 01/01/21 11:16 01/01/21 17:18 01/01/21 21:15 01/02/21 03:10 Glucose (Fingerstick) 276 mg/dL (70-99) 211 mg/dL (70-99) 184 mg/dL (70-99) White Blood Count 7.7 x10^3/uL (4.0-11.0) Red Blood Count 4.68 x10^6/uL (3.50-5.40) Hemoglobin 14.2 g/dL (12.0-15.5) Hematocrit 43.6 % (36.0-47.0) Mean Corpuscular Volume 93 fL (79-100) Mean Corpuscular Hemoglobin 30 pg (25-35) Mean Corpuscular Hemoglobin Concent 33 g/dL (31-37) Red Cell Distribution Width 15.5 % (11.5-14.5) Platelet Count 132 x10^3/uL (140-400) Neutrophils (%) (Auto) 80 % (31-73) Lymphocytes (%) (Auto) 9 % (24-48) Monocytes (%) (Auto) 10 % (0-9) Eosinophils (%) (Auto) 1 % (0-3) Basophils (%) (Auto) 1 % (0-3) Neutrophils # (Auto) 6.1 x10^3/uL (1.8-7.7) Lymphocytes # (Auto) 0.7 x10^3/uL (1.0-4.8) Monocytes # (Auto) 0.8 x10^3/uL (0.0-1.1) Eosinophils # (Auto) 0.0 x10^3/uL (0.0-0.7) Basophils # (Auto) 0.0 x10^3/uL (0.0-0.2) Sodium Level 146 mmol/L (136-145) Potassium Level 3.5 mmol/L (3.5-5.1) Chloride Level 100 mmol/L (98-107) Carbon Dioxide Level 41 mmol/L (21-32) Anion Gap 5 (6-14) Blood Urea Nitrogen 42 mg/dL (7-20) Creatinine 1.0 mg/dL (0.6-1.0) Estimated GFR (Cockcroft-Gault) 52.8 Glucose Level 195 mg/dL (70-99) Calcium Level 8.7 mg/dL (8.5-10.1) Magnesium Level 2.0 mg/dL (1.8-2.4) Test 01/02/21 07:32 01/02/21 11:03 01/02/21 16:20 01/02/21 20:23 Glucose (Fingerstick) 185 mg/dL (70-99) 207 mg/dL (70-99) 120 mg/dL (70-99) 147 mg/dL (70-99) Test 01/03/21 04:30 01/03/21 08:18 White Blood Count 7.3 x10^3/uL (4.0-11.0) Red Blood Count 4.80 x10^6/uL (3.50-5.40) Hemoglobin 14.2 g/dL (12.0-15.5) Hematocrit 45.3 % (36.0-47.0) Mean Corpuscular Volume 94 fL (79-100) Mean Corpuscular Hemoglobin 30 pg (25-35) Mean Corpuscular Hemoglobin Concent 31 g/dL (31-37) Red Cell Distribution Width 15.8 % (11.5-14.5) Platelet Count 153 x10^3/uL (140-400) Neutrophils (%) (Auto) 69 % (31-73) Lymphocytes (%) (Auto) 15 % (24-48) Monocytes (%) (Auto) 13 % (0-9) Eosinophils (%) (Auto) 3 % (0-3) Basophils (%) (Auto) 1 % (0-3) Neutrophils # (Auto) 5.0 x10^3/uL (1.8-7.7) Lymphocytes # (Auto) 1.1 x10^3/uL (1.0-4.8) Monocytes # (Auto) 0.9 x10^3/uL (0.0-1.1) Eosinophils # (Auto) 0.2 x10^3/uL (0.0-0.7) Basophils # (Auto) 0.0 x10^3/uL (0.0-0.2) Sodium Level 147 mmol/L (136-145) Potassium Level 3.0 mmol/L (3.5-5.1) Chloride Level 98 mmol/L (98-107) Carbon Dioxide Level 42 mmol/L (21-32) Anion Gap 7 (6-14) Blood Urea Nitrogen 37 mg/dL (7-20) Creatinine 0.8 mg/dL (0.6-1.0) Estimated GFR (Cockcroft-Gault) 68.3 Glucose Level 41 mg/dL (70-99) Calcium Level 8.6 mg/dL (8.5-10.1) Magnesium Level 2.1 mg/dL (1.8-2.4) Glucose (Fingerstick) 118 mg/dL (70-99) Laboratory Tests Test 01/02/21 11:03 01/02/21 16:20 01/02/21 20:23 01/03/21 04:30 Glucose (Fingerstick) 207 mg/dL (70-99) 120 mg/dL (70-99) 147 mg/dL (70-99) White Blood Count 7.3 x10^3/uL (4.0-11.0) Red Blood Count 4.80 x10^6/uL (3.50-5.40) Hemoglobin 14.2 g/dL (12.0-15.5) Hematocrit 45.3 % (36.0-47.0) Mean Corpuscular Volume 94 fL (79-100) Mean Corpuscular Hemoglobin 30 pg (25-35) Mean Corpuscular Hemoglobin Concent 31 g/dL (31-37) Red Cell Distribution Width 15.8 % (11.5-14.5) Platelet Count 153 x10^3/uL (140-400) Neutrophils (%) (Auto) 69 % (31-73) Lymphocytes (%) (Auto) 15 % (24-48) Monocytes (%) (Auto) 13 % (0-9) Eosinophils (%) (Auto) 3 % (0-3) Basophils (%) (Auto) 1 % (0-3) Neutrophils # (Auto) 5.0 x10^3/uL (1.8-7.7) Lymphocytes # (Auto) 1.1 x10^3/uL (1.0-4.8) Monocytes # (Auto) 0.9 x10^3/uL (0.0-1.1) Eosinophils # (Auto) 0.2 x10^3/uL (0.0-0.7) Basophils # (Auto) 0.0 x10^3/uL (0.0-0.2) Sodium Level 147 mmol/L (136-145) Potassium Level 3.0 mmol/L (3.5-5.1) Chloride Level 98 mmol/L (98-107) Carbon Dioxide Level 42 mmol/L (21-32) Anion Gap 7 (6-14) Blood Urea Nitrogen 37 mg/dL (7-20) Creatinine 0.8 mg/dL (0.6-1.0) Estimated GFR (Cockcroft-Gault) 68.3 Glucose Level 41 mg/dL (70-99) Calcium Level 8.6 mg/dL (8.5-10.1) Magnesium Level 2.1 mg/dL (1.8-2.4) Test 01/03/21 08:18 Glucose (Fingerstick) 118 mg/dL (70-99) Microbiology 12/29/20 Blood Culture - Preliminary, Resulted NO GROWTH AFTER 4 DAYS 12/27/20 Urine Culture - Final, Complete 12/27/20 Antimicrobic Susceptibility - Final, Complete Medications Current Medications Ceftriaxone Sodium (Rocephin) 2 gm 1X ONCE IVP Last administered on 12/27/20at 02:19; Start 12/27/20 at 02:00; Stop 12/27/20 at 02:01; Status DC Vancomycin HCl 250 ml @ 250 mls/hr 1X ONCE IV ; Start 12/27/20 at 01:45; Stop 12/27/20 at 02:44; Status UNV Vancomycin HCl (Vanco Per Pharmacy) 1 each PRN DAILY PRN MC SEE COMMENTS Last administered on 12/29/20at 09:15; Start 12/27/20 at 01:45; Stop 12/29/20 at 17:35; Status DC Fentanyl Citrate (Fentanyl 2ml Vial) 50 mcg 1X ONCE IVP Last administered on 12/27/20at 02:05; Start 12/27/20 at 02:00; Stop 12/27/20 at 02:01; Status DC Nitroglycerin (Nitro-Bid Oint) 1 inch 1X ONCE TP Last administered on 12/27/20at 02:06; Start 12/27/20 at 02:00; Stop 12/27/20 at 02:01; Status DC Vancomycin HCl 2 gm/Sodium Chloride 500 ml @ 250 mls/hr 1X ONCE IV Last ad ministered on 12/27/20at 02:20; Start 12/27/20 at 02:30; Stop 12/27/20 at 04:29; Status DC Furosemide (Lasix) 20 mg 1X ONCE IVP Last administered on 12/27/20at 03:43; Start 12/27/20 at 03:30; Stop 12/27/20 at 03:31; Status DC Insulin Human Regular (HumuLIN R VIAL) 10 unit 1X ONCE IV Last administered on 12/27/20at 03:41; Start 12/27/20 at 03:30; Stop 12/27/20 at 03:31; Status DC Ondansetron HCl (Zofran) 4 mg PRN Q8HRS PRN IVP NAUSEA/VOMITING 1ST CHOICE; Start 12/27/20 at 03:15; Stop 12/28/20 at 03:14; Status DC Fentanyl Citrate (Fentanyl 2ml Vial) 50 mcg PRN Q24HRS PRN IVP SEVERE PAIN 7- 10; Start 12/27/20 at 03:15; Stop 12/27/20 at 03:25; Status DC Fentanyl Citrate (Fentanyl 2ml Vial) 50 mcg PRN Q2HRS PRN IVP SEVERE PAIN 7-10 Last administered on 12/27/20at 04:53; Start 12/27/20 at 03:30; Stop 12/28/20 at 03:29; Status DC Vancomycin HCl 1.75 gm/Sodium Chloride 500 ml @ 250 mls/hr Q24H IV Last administered on 12/29/20at 04:19; Start 12/28/20 at 04:00; Stop 12/29/20 at 10:35; Status DC Vancomycin HCl (Vancomycin Trough Level) 1 each 1X ONCE MC Last administered on 12/29/20at 03:30; Start 12/29/20 at 03:30; Stop 12/29/20 at 03:31; Status DC Influenza Virus Vaccine Quadrival (Flulaval Quad [id number] Syringe) 0.5 ml ONCE ONCE VAX IM Last administered on 12/27/20at 17:54; Start 12/27/20 at 09:00; Stop 12/27/20 at 09:01; Status DC Lactobacillus Rhamnosus (Culturelle) 1 cap BID PO Last administered on 01/02/21at 20:16; Start 12/27/20 at 09:00 Heparin Sodium (Porcine) (Heparin Sodium) 4,000 unit 1X ONCE IV Last administered on 12/27/20at 09:13; Start 12/27/20 at 09:00; Stop 12/27/20 at 09:01; Status DC Heparin Sodium/ Dextrose 250 ml @ 10 mls/hr CONT PRN IV PER PROTOCOL Last administered on 12/27/20at 09:17; Start 12/27/20 at 09:00; Stop 12/29/20 at 21:19; Status DC Heparin Sodium (Porcine) (Heparin Sodium) 3,000 unit PRN Q6HRS PRN IV FOR UFH LEVEL LESS THAN 0.2; Start 12/27/20 at 09:00; Stop 12/29/20 at 21:19; Status DC Info (Anti-Coagulation Monitoring By Pharmacy) 1 each PRN DAILY PRN MC PER PROTOCOL Last administered on 12/27/20at 15:10; Start 12/27/20 at 09:00; Stop 12/29/20 at 21:19; Status DC Piperacillin Sod/ Tazobactam Sod (Zosyn Per Pharmacy) 1 each PRN DAILY PRN MC SEE COMMENTS; Start 12/27/20 at 09:15; Stop 12/30/20 at 09:13; Status DC Nystatin (Nystop) 1 amy BID TP Last administered on 01/02/21at 20:21; Start 12/27/20 at 10:00 Dextrose (Dextrose 50%-Water Syringe) 12.5 gm PRN Q15MIN PRN IV SEE COMMENTS; Start 12/27/20 at 09:30; Stop 12/27/20 at 09:26; Status DC Piperacillin Sod/ Tazobactam Sod 2.25 gm/Sodium Chloride 50 ml @ 100 mls/hr Q6HRS IV Last administered on 12/28/20at 07:28; Start 12/27/20 at 09:30; Stop 12/28/20 at 10:47; Status DC Insulin Human Lispro (HumaLOG) 0-7 UNITS TIDWMEALS SQ ; Start 12/27/20 at 12:00; Stop 12/27/20 at 09:32; Status DC Dextrose (Dextrose 50%-Water Syringe) 12.5 gm PRN Q15MIN PRN IV SEE COMMENTS; Start 12/27/20 at 09:30 Insulin Human Lispro (HumaLOG) 0-7 UNITS TIDWMEALS SQ Last administered on 01/02/21at 11:44; Start 12/27/20 at 09:30 Furosemide (Lasix) 40 mg 1X ONCE IVP Last administered on 12/27/20at 11:08; Start 12/27/20 at 10:30; Stop 12/27/20 at 10:34; Status DC Aspirin (Laura Aspirin) 325 mg 1X ONCE PO Last administered on 12/27/20at 12:5 2; Start 12/27/20 at 11:30; Stop 12/27/20 at 11:31; Status DC Aspirin (Ecotrin) 81 mg [id number] PO Last administered on 01/02/21at 08:57; Start 12/28/20 at 08:00 Insulin Human Lispro (HumaLOG) 30 units 1X ONCE SQ Last administered on 12/27/20at 12:56; Start 12/27/20 at 12:45; Stop 12/27/20 at 12:51; Status DC Metoprolol Tartrate (Lopressor) 25 mg BID PO Last administered on 01/02/21at 20:16; Start 12/27/20 at 21:00 Hydralazine HCl (Apresoline Inj) 10 mg PRN Q4HRS PRN IVP ELEVATED BP, SEE COMME NTS; Start 12/27/20 at 16:30 Atorvastatin Calcium (Lipitor) 20 mg DAILY PO Last administered on 01/01/21at 21:48; Start 12/28/20 at 09:00 Lactic Acid (Lac-Hydrin) 1 amy BID TP Last administered on 01/02/21at 20:21; Start 12/27/20 at 21:00 Insulin Human Lispro (HumaLOG) 10 units 1X ONCE SQ Last administered on 12/28/20at 10:45; Start 12/28/20 at 10:45; Stop 12/28/20 at 10:47; Status DC Piperacillin Sod/ Tazobactam Sod 3.375 gm/Sodium Chloride 50 ml @ 100 mls/hr Q6HRS IV Last administered on 12/30/20at 05:47; Start 12/28/20 at 12:00; Stop 12/30/20 at 09:19; Status DC Furosemide (Lasix) 40 mg BID IVP Last administered on 12/29/20at 08:29; Start 12/28/20 at 12:30; Stop 12/29/20 at 12:16; Status DC Insulin Human Lispro (HumaLOG) 10 units 1X ONCE SQ Last administered on 12/28/20at 12:25; Start 12/28/20 at 12:30; Stop 12/28/20 at 12:31; Status DC Insulin Human Lispro (HumaLOG) 10 units 1X ONCE SQ Last administered on 12/28/20at 13:18; Start 12/28/20 at 13:15; Stop 12/28/20 at 13:16; Status DC Insulin Glargine (Lantus Syringe) 20 unit QHS SQ Last administered on 01/02/21at 20:24; Start 12/28/20 at 16:01 Insulin Human Lispro (HumaLOG) 5 units TIDWMEALS SQ Last administered on 01/02/21at 11:45; Start 12/28/20 at 17:00 Acetaminophen/ Hydrocodone Bitart (Lortab 5/325) 1 tab PRN Q4HRS PRN PO MOD TO SEVERE PAIN Last administered on 12/30/20at 08:39; Start 12/28/20 at 17:00; Stop 12/30/20 at 11:01; Status DC Acetaminophen (Tylenol) 650 mg PRN Q6HRS PRN PO MILD PAIN / TEMP > 100.3'F; Start 12/28/20 at 17:00 Daptomycin 550 mg/ Sodium Chloride 50 ml @ 100 mls/hr Q24H IV Last administered on 12/29/20at 12:00; Start 12/29/20 at 12:00; Stop 12/30/20 at 09:13; Status DC Furosemide (Lasix) 40 mg DAILY IVP ; Start 12/30/20 at 09:00; Stop 12/29/20 at 12:18; Status DC Furosemide (Lasix) 40 mg [id number] IVP Last administered on 01/02/21at 16:19; Start 12/29/20 at 16:00 Metolazone (Zaroxolyn) 2.5 mg 1X ONCE PO Last administered on 12/29/20at 12:23; Start 12/29/20 at 12:30; Stop 12/29/20 at 12:31; Status DC Fentanyl Citrate (Fentanyl 2ml Vial) 25 mcg PRN Q3HRS PRN IVP SEVERE PAIN 7-10 Last administered on 01/02/21at 11:43; Start 12/29/20 at 21:15 Heparin Sodium (Porcine) (Heparin Sodium) 5,000 unit Q8HRS SQ Last administered on 01/03/21at 05:39; Start 12/29/20 at 22:00 Ceftriaxone Sodium (Rocephin) 2 gm Q24H IVP Last administered on 01/02/21at 09:00; Start 12/30/20 at 10:00 Doxycycline Hyclate (Vibra-Tab) 100 mg BID PO Last administered on 01/01/21at 09:43; Start 12/30/20 at 21:00; Stop 01/01/21 at 10:14; Status DC Furosemide (Lasix) 40 mg 1X ONCE IVP Last administered on 12/30/20at 10:56; Start 12/30/20 at 09:45; Stop 12/30/20 at 09:46; Status DC Acetaminophen/ Hydrocodone Bitart (Lortab ) 1 tab PRN Q6HRS PRN PO MODERATE - SEVERE PAIN Last administered on 01/02/21at 20:37; Start 12/30/20 at 11:00 Tizanidine HCl (Zanaflex) 4 mg PRN Q8HRS PRN PO MUSCLE SPASMS; Start 12/30/20 at 11:15 Furosemide (Lasix) 40 mg 1X ONCE IVP Last administered on 12/31/20at 13:56; Start 12/31/20 at 11:30; Stop 12/31/20 at 11:31; Status DC Potassium Chloride (Klor-Con) 40 meq 1X ONCE PO Last administered on 1at 13:55; Start 12/31/20 at 11:30; Stop 12/31/20 at 11:31; Status DC Furosemide (Lasix) 80 mg 1X ONCE IVP Last administered on 12/31/20at 19:19; Start 12/31/20 at 17:30; Stop 12/31/20 at 17:31; Status DC Potassium Chloride (Klor-Con) 40 meq Q4H PO Last administered on 01/01/21at 14:07; Start 01/01/21 at 10:00; Stop 01/01/21 at 14:01; Status DC Active Scripts Active Reported Furosemide 20 Mg Tablet 1 Tab PO DAILY Lisinopril-Hctz 20-25 Mg Tab (Lisinopril/Hydrochlorothiazide) 1 Each Tablet 1 Tab PO DAILY Vitals/I & O Vital Sign - Last 24 Hours 01/02/21 01/02/21 01/02/21 01/02/21 10:14 11:43 11:43 12:13 Temp 97.9 97.9 Pulse 70 Resp 19 B/P (MAP) 153/66 (95) Pulse Ox 93 93 93 93 O2 Delivery Nasal Cannula Nasal Cannula Nasal Cannula Nasal Cannula O2 Flow Rate 2.0 2.0 2.0 2.0 01/02/21 01/02/21 01/02/21 01/02/21 12:13 14:21 19:41 20:16 Temp 97.7 97.5 97.7 97.5 Pulse 63 65 66 Resp 19 18 B/P (MAP) 142/64 (90) 169/73 (105) 169/73 Pulse Ox 93 93 96 O2 Delivery Nasal Cannula Nasal Cannula Nasal Cannula O2 Flow Rate 2.0 2.0 2.0 01/02/21 01/02/21 01/02/21 01/03/21 20:25 20:37 22:59 02:50 Temp 97.9 97.8 97.9 97.8 Pulse 66 68 Resp 16 20 B/P (MAP) 129/62 (84) 148/65 (92) Pulse Ox 96 93 O2 Delivery Nasal Cannula Nasal Cannula Nasal Cannula Nasal Cannula O2 Flow Rate 2.0 2.0 2.0 2.0 Intake and Output 0 01/02/21 01/02/21 01/03/21 14:59 22:59 06:59 Intake Total 464 ml 590 ml 0 ml Output Total 900 ml 1200 ml Balance 464 ml -310 ml -1200 ml Justifications for Admission Other Justification Symptomatic cholelithiasis SANGEETA MILLER MD Jan 03, 2021 09:00
--- NOTE | 2021-01-03 09:04 | PDOC ---
[employer] PROGRESS NOTE Date of Service DOS: DATE: 01/03/21 TIME: 09:02 Chief Complaint Chief Complaint Congestive Heart Failure Elevated Troponin Level Generalized weakness Hyperglycemia due to DM Multiple Fall Status UTI History of Present Illness History of Present Illness 01/03 Patient evaluated examined at bedside. Major overnight events. Continue antibiotics. Continue diuresis. Potassium replacement this morning. Not a kyphoplasty candidate. Repeat cultures remain negative. If cultures stay negative patient may be able to complete IV antibiotics out of the hospital. 01/02 Patient evaluated examined at bedside. No major overnight events. Still needs a fair bit of diuresis. Nephro cardiology infectious disease following. Continue antibiotics. Continue diuresis. Patient still okay with kyphoplasty. Plan of care discussed bedside RN. 01/01 Late entry for January 01. Patient evaluated examined at bedside. Remains on antibiotics for now. Evaluated by Dr. Zaragoza and patient now agreeable to kyphoplasty. Continue antibiotics. Continue to use diuresis as needed. 12/31 Patient evaluated examined at bedside. Continue current plan. 12/30/2020 Patient seen and examined, in [facility] Distant Heart sounds heard on auscultation Patient is on 2 L oxygen per NC Antibiotics changed to Ceftriaxone and Doxycycline for bacteremia per Infectious Disease Heparin Drip stopped, with addition of ASA and statin per Cardiology Lasix continue and increased today per Nephrology Discussed with RN, chart reviewed 12/29/2020 Patient seen and examined, in NAD, patient states feeling mildly better, but still weak Patient is on 2 L oxygen per NC Antibiotics Hanging (Zosyn and Doxycycline) Heparin Drip hanging per cardiology Discussed with RN, chart reviewed. 12/28/2020 Patient was seen and examined, in NAD. Patient is on 2 L oxygen per NC Antibiotics hanging Heparin Drip handing per cardiology Patient Troponin level still high, but trending down Discussed with RN, chart reviewed. Vitals/I&O Vitals/I&O: Vital Signs Date Time Temp Pulse Resp B/P (MAP) Pulse Ox O2 Delivery O2 Flow Rate FiO2 01/03/21 02:50 97.8 68 20 148/65 (92) 93 Nasal Cannula 2.0 97.8 I & O 01/02/21 01/02/21 01/03/21 15:00 23:00 07:00 Intake Total 464 ml 590 ml 0 ml Output Total 900 ml 1200 ml Balance 464 ml -310 ml -1200 ml Physical Exam Physical Exam: GENERAL: Alert, oriented x 3 female, propped up in bed, in no acute distress, on nasal O2. Has back brace in place HEENT: Normocephalic, atraumatic. Oral mucosa moist, no thrush. NECK: Supple. LUNGS: Crackles present bilaterally. No accessory muscle use. HEART: S1, S2. No murmurs. ABDOMEN: Soft, obese. Bowel sounds present. EXTREMITIES: Lower extremity edema, dry scaly skin and chronic venous stasis changes present. No warmth. NEUROLOGIC: Alert and oriented x 3, grossly nonfocal. PSYCHIATRIC: Calm and cooperative. MUSCULOSKELETAL: Changes suggestive of DJD.. Labs Labs: Laboratory Tests Test 01/02/21 11:03 01/02/21 16:20 01/02/21 20:23 01/03/21 04:30 Glucose (Fingerstick) 207 mg/dL (70-99) 120 mg/dL (70-99) 147 mg/dL (70-99) White Blood Count 7.3 x10^3/uL (4.0-11.0) Red Blood Count 4.80 x10^6/uL (3.50-5.40) Hemoglobin 14.2 g/dL (12.0-15.5) Hematocrit 45.3 % (36.0-47.0) Mean Corpuscular Volume 94 fL (79-100) Mean Corpuscular Hemoglobin 30 pg (25-35) Mean Corpuscular Hemoglobin Concent 31 g/dL (31-37) Red Cell Distribution Width 15.8 % (11.5-14.5) Platelet Count 153 x10^3/uL (140-400) Neutrophils (%) (Auto) 69 % (31-73) Lymphocytes (%) (Auto) 15 % (24-48) Monocytes (%) (Auto) 13 % (0-9) Eosinophils (%) (Auto) 3 % (0-3) Basophils (%) (Auto) 1 % (0-3) Neutrophils # (Auto) 5.0 x10^3/uL (1.8-7.7) Lymphocytes # (Auto) 1.1 x10^3/uL (1.0-4.8) Monocytes # (Auto) 0.9 x10^3/uL (0.0-1.1) Eosinophils # (Auto) 0.2 x10^3/uL (0.0-0.7) Basophils # (Auto) 0.0 x10^3/uL (0.0-0.2) Sodium Level 147 mmol/L (136-145) Potassium Level 3.0 mmol/L (3.5-5.1) Chloride Level 98 mmol/L (98-107) Carbon Dioxide Level 42 mmol/L (21-32) Anion Gap 7 (6-14) Blood Urea Nitrogen 37 mg/dL (7-20) Creatinine 0.8 mg/dL (0.6-1.0) Estimated GFR (Cockcroft-Gault) 68.3 Glucose Level 41 mg/dL (70-99) Calcium Level 8.6 mg/dL (8.5-10.1) Magnesium Level 2.1 mg/dL (1.8-2.4) Test 01/03/21 08:18 Glucose (Fingerstick) 118 mg/dL (70-99) Assessment and Plan Assessmemt and Plan Problems Medical Problems: (1) Congestive heart failure Status: Acute (2) Elevated troponin level Status: Acute (3) Generalized weakness Status: Acute (4) Hyperglycemia due to diabetes mellitus Status: Acute (5) Multiple falls Status: Acute (6) Requires supplemental oxygen Status: Acute (7) Respiratory failure with hypoxia Status: Acute (8) T10 vertebral fracture Status: Acute (9) UTI (urinary tract infection) Status: Acute Comment Review of Relevant I have reviewed the following items irving (where applicable) has been applied. Justifications for Admission Other Justification Symptomatic cholelithiasis SYEDA RICHARDSON MD Jan 03, 2021 09:04
[2021-01-03] MEDS: LACTOBACILLUS RHAMNOSUS GG 1 CAPSULE. PO SCH ×2 (09:06→20:05)
[2021-01-03] MEDS: ATORVASTATIN CALCIUM 20 MG TABLET PO SCH (09:06)
[2021-01-03] MEDS: ASPIRIN ENTERIC COATED 81 MG TABLET.DR. PO SCH (09:07)
[2021-01-03] MEDS: FUROSEMIDE 40 MG/4 ML VIAL. IVP SCH ×2 (09:07→18:45)
[2021-01-03] MEDS: METOPROLOL TART IMMED RELEASE 25 MG TABLET. PO SCH ×2 (09:07→20:06)
[2021-01-03] MEDS: NYSTATIN TOPICAL POWDER 15GM BOTTLE. TP SCH ×2 (09:10→20:17)
[2021-01-03] MEDS: cefTRIAXone IV Push 2 GM VIAL. IVP SCH (09:12)
[2021-01-03] MEDS: AMMONIUM LACTATE 12% TOPICAL LOTION 225GM BOTTLE. TP SCH ×2 (09:16→20:17)
[2021-01-03] MEDS: POTASSIUM CHLORIDE 20 MEQ TABLET.ER. PO SCH ×2 (09:32→13:39)
[2021-01-03] MEDS: fentaNYL PF VIAL 100 MCG/2 ML VIAL IVP PRN ×3 (09:32→23:27)
--- NOTE | 2021-01-03 10:59 | NUR ---
SS following up with discharge planning. SS reviewed pt chart and discussed with pt RN. Pt is currently requiring oxygen at two liters nasal canula. COVID19 negative. Pt on IV Rocephin and IV Lasix. PT/OT recommended prison unit. PO diet. SS met with pt and discussed discharge planning and prison unit. Pt requested referrals be sent to [facility] and [facility], ; fax [phone], and [facility], ; fax [phone]. SS phoned and faxed referrals as requested. SS will continue to follow for discharge planning. Addendum: 01/03/21 at 1456 by JOHNNY MICHAEL Pt accepted at [facility] pending insurance approval.
[2021-01-03 11:00] VITALS: BP 156/68
--- NOTE | 2021-01-03 11:42 | PDOC ---
Renal-Progress Notes Subjective Notes Notes FEELING VERY WEAK History of Present Illness Hx of present illness STABLE Vitals Vitals Vital Signs Date Time Temp Pulse Resp B/P (MAP) Pulse Ox O2 Delivery O2 Flow Rate FiO2 01/03/21 09:32 92 Nasal Cannula 2.0 01/03/21 09:07 84 150/67 01/03/21 07:00 98.3 18 98.3 Weight Weight [ ] I.O. Intake and Output Intake and Output 01/03/21 07:00 Intake Total 1054 ml Output Total 2100 ml Balance -1046 ml Intake Oral 1054 ml Output Urine Total 2100 ml # Bowel Movements 3 Labs Labs Laboratory Tests Test 01/02/21 16:20 01/02/21 20:23 01/03/21 04:30 01/03/21 08:18 Glucose (Fingerstick) 120 mg/dL (70-99) 147 mg/dL (70-99) 118 mg/dL (70-99) White Blood Count 7.3 x10^3/uL (4.0-11.0) Red Blood Count 4.80 x10^6/uL (3.50-5.40) Hemoglobin 14.2 g/dL (12.0-15.5) Hematocrit 45.3 % (36.0-47.0) Mean Corpuscular Volume 94 fL (79-100) Mean Corpuscular Hemoglobin 30 pg (25-35) Mean Corpuscular Hemoglobin Concent 31 g/dL (31-37) Red Cell Distribution Width 15.8 % (11.5-14.5) Platelet Count 153 x10^3/uL (140-400) Neutrophils (%) (Auto) 69 % (31-73) Lymphocytes (%) (Auto) 15 % (24-48) Monocytes (%) (Auto) 13 % (0-9) Eosinophils (%) (Auto) 3 % (0-3) Basophils (%) (Auto) 1 % (0-3) Neutrophils # (Auto) 5.0 x10^3/uL (1.8-7.7) Lymphocytes # (Auto) 1.1 x10^3/uL (1.0-4.8) Monocytes # (Auto) 0.9 x10^3/uL (0.0-1.1) Eosinophils # (Auto) 0.2 x10^3/uL (0.0-0.7) Basophils # (Auto) 0.0 x10^3/uL (0.0-0.2) Sodium Level 147 mmol/L (136-145) Potassium Level 3.0 mmol/L (3.5-5.1) Chloride Level 98 mmol/L (98-107) Carbon Dioxide Level 42 mmol/L (21-32) Anion Gap 7 (6-14) Blood Urea Nitrogen 37 mg/dL (7-20) Creatinine 0.8 mg/dL (0.6-1.0) Estimated GFR (Cockcroft-Gault) 68.3 Glucose Level 41 mg/dL (70-99) Calcium Level 8.6 mg/dL (8.5-10.1) Magnesium Level 2.1 mg/dL (1.8-2.4) Micro Micro Microbiology 12/29/20 Blood Culture - Preliminary, Resulted NO GROWTH AFTER 4 DAYS 12/27/20 Urine Culture - Final, Complete 12/27/20 Antimicrobic Susceptibility - Final, Complete Review of Systems Constitutional: yes: alert, oriented Ears/Nose/Throat: Yes: no symptom reported Eyes: Yes: no symptom reported Pulmonary: Yes dyspnea Cardiovascular: Yes no symptom reported Gastrointestional: Yes: no symptom reported Musculoskeletal: Yes: no symptom reported Skin: Yes no symptom reported Psychiatric/Neurological: Yes: no symptom reported Endocrine: Yes: no symptom reported Physical Exam General Appearance: no apparent distress Respiratory: bilateral CTA Heart: S1S2 Abdomen: soft, bowel sounds present Genitourinary: bladder flat Extremities: pulses present Neurology: alert, oriented, follow commands Musculoskeletal: Osteoarthritis Assessment Assessment IMP TRICIA-CR DOWN TO 1.0 HYPOKALEMIA-CORRECTED MILD HYPERNATREMIA-STABLE CHF-PROB DIASTOLIC ACUTE ON CHRONIC HYPERGLYCEMIA-NO KETOTIC-IMPROVED ELEVATED TROPONIN LEVEL MULTIPLE FALL HX T 10 FX LE EDEMA POSSIBLE BILATERAL PRETIBIAL AREA CELLULITIS. BACTEREMIA G + E COLI UTI PLAN CONT LASIX REPLACE K NEEDED NEEDS MORE NEG FLUID BALANCE ANTIBIOTICS CONTROL BG WILL FOLLOW CARLTON BYRNE MD Jan 03, 2021 11:42
[2021-01-03] MEDS ORDERED: FUROSEMIDE 40 MG/4 ML VIAL. IVP ONE (12:30)
--- NOTE | 2021-01-03 14:24 | PDOC ---
OTILIA GR PEST CONTROL SERVICE REPRESENTATIVE 01/03/21 1424: CARDIO Progress Notes Date and Time Date of Service 01/03/21 Time of Evaluation 1150 Subjective Subjective: No Chest Pain, No shortness of breath, No Palpitations Vitals Vitals Vital Signs Date Time Temp Pulse Resp B/P (MAP) Pulse Ox O2 Delivery O2 Flow Rate FiO2 01/03/21 13:48 92 Nasal Cannula 2.0 01/03/21 11:00 98.4 78 16 156/68 (97) 98.4 Weight Weight [ ] Input and Output Intake and Output Intake and Output 01/03/21 07:00 Intake Total 1054 ml Output Total 2100 ml Balance -1046 ml Intake Oral 1054 ml Output Urine Total 2100 ml # Bowel Movements 3 Laboratory Labs Laboratory Tests Test 01/02/21 16:20 01/02/21 20:23 01/03/21 04:30 01/03/21 08:18 Glucose (Fingerstick) 120 mg/dL (70-99) 147 mg/dL (70-99) 118 mg/dL (70-99) White Blood Count 7.3 x10^3/uL (4.0-11.0) Red Blood Count 4.80 x10^6/uL (3.50-5.40) Hemoglobin 14.2 g/dL (12.0-15.5) Hematocrit 45.3 % (36.0-47.0) Mean Corpuscular Volume 94 fL (79-100) Mean Corpuscular Hemoglobin 30 pg (25-35) Mean Corpuscular Hemoglobin Concent 31 g/dL (31-37) Red Cell Distribution Width 15.8 % (11.5-14.5) Platelet Count 153 x10^3/uL (140-400) Neutrophils (%) (Auto) 69 % (31-73) Lymphocytes (%) (Auto) 15 % (24-48) Monocytes (%) (Auto) 13 % (0-9) Eosinophils (%) (Auto) 3 % (0-3) Basophils (%) (Auto) 1 % (0-3) Neutrophils # (Auto) 5.0 x10^3/uL (1.8-7.7) Lymphocytes # (Auto) 1.1 x10^3/uL (1.0-4.8) Monocytes # (Auto) 0.9 x10^3/uL (0.0-1.1) Eosinophils # (Auto) 0.2 x10^3/uL (0.0-0.7) Basophils # (Auto) 0.0 x10^3/uL (0.0-0.2) Sodium Level 147 mmol/L (136-145) Potassium Level 3.0 mmol/L (3.5-5.1) Chloride Level 98 mmol/L (98-107) Carbon Dioxide Level 42 mmol/L (21-32) Anion Gap 7 (6-14) Blood Urea Nitrogen 37 mg/dL (7-20) Creatinine 0.8 mg/dL (0.6-1.0) Estimated GFR (Cockcroft-Gault) 68.3 Glucose Level 41 mg/dL (70-99) Calcium Level 8.6 mg/dL (8.5-10.1) Magnesium Level 2.1 mg/dL (1.8-2.4) Test 01/03/21 11:59 Glucose (Fingerstick) 198 mg/dL (70-99) Microbiology Micro Microbiology 12/29/20 Blood Culture - Final, Complete NO GROWTH AFTER 5 DAYS 12/27/20 Urine Culture - Final, Complete 12/27/20 Antimicrobic Susceptibility - Final, Complete Review of Systems Constitutional: yes: alert, oriented Ears/Nose/Throat: Yes: no symptom reported Eyes: Yes: no symptom reported Pulmonary: Yes dyspnea Cardiovascular: Yes no symptom reported Gastrointestional: Yes: no symptom reported Musculoskeletal: Yes: no symptom reported Skin: Yes no symptom reported Psychiatric/Neurological: Yes: no symptom reported Endocrine: Yes: no symptom reported Physical Exam HEENT: Neck Supple W Full Motion Chest: Symmetric LUNGS: Clear to Auscultation, Other (diminished bases) Heart: RRR (SR) Abdomen: Soft N/T, Other (obese ) Extremities: Other (1-2+ bilateral LE edema. Chronic venous stasis changes) Neurology: alert, oriented, follow commands Assessment Assessment 1. Weakness, recurrent falls; CT with acute T10 fracture along with chronic T12 and L1 fractures. No precipitating dizziness or LOC 2. NSTEMI; initial high sensitivity trop peak 5432. Most probable type II, demand ischemia with multiple culprits noted. EKG without significant acute changes 3. Acute on chronic diastolic CHF; echo with preserved LV systolic function. improved s/p IV Lasix 4. Diabetes, II with hyperglycemia 5. Lactic acidosis, bacteremia; BC with GPC per ID 6. Accelerated hypertension; now controlled 7. TRICIA: nephrology following 8. UTI 9. Self care deficit 10. PSVT; presently SR Recommendations Secondary prevention ASA/Plavix, statin therapy Continue metoprolol. Ongoing diuresis with monitoring of renal function Will plan for outpatient ischemic evaluation Supportive care Justicifation of Admission Dx: Justifications for Admission: Justification of Admission Dx: Yes NELLA CHARLES MD 01/03/21 1632: CARDIO Progress Notes Assessment Assessment Patient seen and examined. Agree with WIRELESS STORE MANAGER's assessment and plan. Acute on chronic diastolic heart failure better compensated. Patient presently chest pain-free. Blood pressure better controlled. Plan ischemic evaluation as outpatient. OTILIA GR APRN Jan 03, 2021 14:24 NELLA CHARLES MD Jan 03, 2021 16:32
[2021-01-03 15:00] VITALS: BP 155/71
[2021-01-03] MEDS: CLOPIDOGREL BISULFATE 75 MG TABLET PO SCH (15:00)
[2021-01-03 19:34] VITALS: BP 179/79
[2021-01-03] MEDS: HYDROcodone/APAP 10/325 1 TAB TABLET PO PRN (20:07)
[2021-01-03] MEDS: INSULIN GLARGINE SYRINGE. SQ SCH (21:08)
[2021-01-03 22:54] VITALS: BP 126/58
[2021-01-04 02:49] VITALS: BP 202/79
[2021-01-04 03:06] VITALS: BP 143/65
[2021-01-04] MEDS: HEPARIN for SUB-Q USE 5,000 UNIT/ML VIAL. SQ SCH ×2 (05:22→14:04)
[2021-01-04 06:58] LABS: CALCIUM 8.5 mg/dL (8.5-10.1); GFR 52.8; POTASSIUM 4.1 mmol/L (3.5-5.1)
[2021-01-04 07:17] VITALS: BP 172/74
--- NOTE | 2021-01-04 08:30 | PDOC ---
OTILIA GR ESTHETICS INSTRUCTOR 01/04/21 0830: CARDIO Progress Notes Date and Time Date of Service 01/04/21 Time of Evaluation 1115 Subjective Subjective: No Chest Pain, No Palpitations, Other (SOA better) Vitals Vitals Vital Signs Date Time Temp Pulse Resp B/P (MAP) Pulse Ox O2 Delivery O2 Flow Rate FiO2 01/04/21 07:17 97.5 74 18 172/74 (106) 95 Nasal Cannula 2.0 97.5 Weight Weight [ ] Input and Output Intake and Output Intake and Output 01/04/21 07:00 Intake Total 837 ml Output Total 3000 ml Balance -2163 ml Intake Oral 837 ml Output Urine Total 3000 ml # Bowel Movements 4 Laboratory Labs Laboratory Tests Test 01/03/21 11:59 01/03/21 17:01 01/03/21 20:43 01/04/21 04:45 Glucose (Fingerstick) 198 mg/dL (70-99) 258 mg/dL (70-99) 432 mg/dL (70-99) Sodium Level 142 mmol/L (136-145) Potassium Level 4.1 mmol/L (3.5-5.1) Chloride Level 93 mmol/L (98-107) Carbon Dioxide Level 40 mmol/L (21-32) Anion Gap 9 (6-14) Blood Urea Nitrogen 40 mg/dL (7-20) Creatinine 1.0 mg/dL (0.6-1.0) Estimated GFR (Cockcroft-Gault) 52.8 Glucose Level 393 mg/dL (70-99) Calcium Level 8.5 mg/dL (8.5-10.1) Magnesium Level 2.0 mg/dL (1.8-2.4) Test 01/04/21 07:20 Glucose (Fingerstick) 362 mg/dL (70-99) Microbiology Micro Microbiology 12/29/20 Blood Culture - Final, Complete NO GROWTH AFTER 5 DAYS 12/27/20 Urine Culture - Final, Complete 12/27/20 Antimicrobic Susceptibility - Final, Complete Review of Systems Constitutional: yes: alert, oriented Ears/Nose/Throat: Yes: no symptom reported Eyes: Yes: no symptom reported Pulmonary: Yes dyspnea Cardiovascular: Yes no symptom reported Gastrointestional: Yes: no symptom reported Musculoskeletal: Yes: no symptom reported Skin: Yes no symptom reported Psychiatric/Neurological: Yes: no symptom reported Endocrine: Yes: no symptom reported Physical Exam HEENT: Neck Supple W Full Motion Chest: Symmetric LUNGS: Clear to Auscultation, Other (diminished bases) Heart: RRR (SR) Abdomen: Soft N/T, Other (obese ) Extremities: Other (1-2+ bilateral LE edema. Chronic venous stasis changes) Neurology: alert, oriented, follow commands Assessment Assessment 1. Weakness, recurrent falls; CT with acute T10 fracture along with chronic T12 and L1 fractures. No precipitating dizziness or LOC 2. NSTEMI; initial high sensitivity trop peak 5432. Most probable type II, demand ischemia with multiple culprits noted. EKG without significant acute changes. CP free 3. Acute on chronic diastolic CHF; echo with preserved LV systolic function. improved s/p IV Lasix 4. Diabetes, II with hyperglycemia 5. Lactic acidosis, bacteremia; BC with GPC per ID 6. Accelerated hypertension; now controlled 7. TRICIA: nephrology following 8. UTI 9. Self care deficit 10. PSVT; presently SR Recommendations Secondary prevention ASA/Plavix, statin therapy Continue metoprolol. Ongoing diuresis with monitoring of renal function Outpatient ischemic evaluation as arranged Follow up in our office as scheduled Supportive care Justicifation of Admission Dx: Justifications for Admission: Justification of Admission Dx: Yes NELLA CHARLES MD 01/04/211821: CARDIO Progress Notes Assessment Assessment Patient seen and examined. Agree with PET TRAINING INSTRUCTOR's assessment and plan. Acute on chronic diastolic heart failure better compensated. Patient presently chest pain-free. Blood pressure better controlled. Plan ischemic evaluation as outpatient. OTILIA GR APRN Jan 04, 2021 08:30 NELLA CHARLES MD Jan 04, 2021 18:22
[2021-01-04] MEDS: HYDROcodone/APAP 10/325 1 TAB TABLET PO PRN (08:34)
[2021-01-04] MEDS: METOPROLOL TART IMMED RELEASE 25 MG TABLET. PO SCH (08:35)
[2021-01-04] MEDS: ATORVASTATIN CALCIUM 20 MG TABLET PO SCH (08:35)
[2021-01-04] MEDS: LACTOBACILLUS RHAMNOSUS GG 1 CAPSULE. PO SCH (08:35)
[2021-01-04] MEDS: CLOPIDOGREL BISULFATE 75 MG TABLET PO SCH (08:36)
[2021-01-04] MEDS: ASPIRIN ENTERIC COATED 81 MG TABLET.DR. PO SCH (08:36)
[2021-01-04] MEDS: FUROSEMIDE 40 MG/4 ML VIAL. IVP SCH (08:40)
[2021-01-04] MEDS: AMMONIUM LACTATE 12% TOPICAL LOTION 225GM BOTTLE. TP SCH (08:45)
[2021-01-04] MEDS: NYSTATIN TOPICAL POWDER 15GM BOTTLE. TP SCH (09:00)
--- NOTE | 2021-01-04 09:03 | PDOC ---
Infectious Disease Note Subjective: Subjective Patient without new complaints complains of back discomfort with movement Vital Signs: Vital Signs Vital Signs Date Time Temp Pulse Resp B/P (MAP) Pulse Ox O2 Delivery O2 Flow Rate FiO2 01/04/21 07:17 97.5 74 18 172/74 (106) 95 Nasal Cannula 2.0 97.5 Physical Exam: PHYSICAL EXAM GENERAL: Alert, oriented x 3 female, propped up in bed, in no acute distress, on nasal O2. Has back brace in place HEENT: Normocephalic, atraumatic. Oral mucosa moist, no thrush. NECK: Supple. LUNGS: Crackles present bilaterally. No accessory muscle use. HEART: S1, S2. No murmurs. ABDOMEN: Soft, obese. Bowel sounds present. EXTREMITIES: Lower extremity edema, dry scaly skin and chronic venous stasis changes present. No warmth. NEUROLOGIC: Alert and oriented x 3, grossly nonfocal. PSYCHIATRIC: Calm and cooperative. MUSCULOSKELETAL: Changes suggestive of DJD.. Medications: Inpatient Meds: Medications reviewed. Labs: Lab Laboratory Tests Test 01/03/21 11:59 01/03/21 17:01 01/03/21 20:43 01/04/21 04:45 Glucose (Fingerstick) 198 mg/dL (70-99) 258 mg/dL (70-99) 432 mg/dL (70-99) Sodium Level 142 mmol/L (136-145) Potassium Level 4.1 mmol/L (3.5-5.1) Chloride Level 93 mmol/L (98-107) Carbon Dioxide Level 40 mmol/L (21-32) Anion Gap 9 (6-14) Blood Urea Nitrogen 40 mg/dL (7-20) Creatinine 1.0 mg/dL (0.6-1.0) Estimated GFR (Cockcroft-Gault) 52.8 Glucose Level 393 mg/dL (70-99) Calcium Level 8.5 mg/dL (8.5-10.1) Magnesium Level 2.0 mg/dL (1.8-2.4) Test 01/04/21 07:20 Glucose (Fingerstick) 362 mg/dL (70-99) Objective: Assessment: 1. Bacteremia, gram-positive cocci present on admission on 12/27/2020, staph hemolyticus and epidermidis likely contaminant 2. Generalized weakness Multiple falls for a couple of months with a T10 fracture 3. Acute kidney injury. 4. Congestive heart failure. 5. Chronic venous stasis. 6. E. coli urinary tract infection. 7. Possible mild superimposed cellulitis with underlying chronic venous stasis. Plan: Plan of Care DC ceftriaxone Follow repeat blood cultures negative so far Continue supportive care TIFFANIE WISDOM MD Jan 04, 2021 09:03
[2021-01-04] MEDS: INSULIN LISPRO 300 UNITS/3 ML VIAL. SQ SCH ×3 (09:17→13:52)
--- NOTE | 2021-01-04 09:22 | PDOC ---
PROGRESS NOTES Date of Service DATE: 01/04/21 TIME: 09:20 Subjective Subjective She admits less pain this AM. Objective Objective Vital Signs Date Time Temp Pulse Resp B/P (MAP) Pulse Ox O2 Delivery O2 Flow Rate FiO2 01/04/21 08:35 74 172/74 01/04/21 07:17 97.5 18 95 Nasal Cannula 2.0 97.5 Intake and Output 01/04/21 07:00 Intake Total 837 ml Output Total 3000 ml Balance -2163 ml Intake Oral 837 ml Output Urine Total 3000 ml # Bowel Movements 4 Physical Exam Physical Exam She got up and walked at bed side with roller walker and she required maximal assistance with bed mobility and supervision for transfers. She had TLSO on higher up. Assessment Assessment Problems Medical Problems: (1) Congestive heart failure Status: Acute (2) Elevated troponin level Status: Acute (3) Generalized weakness Status: Acute (4) Hyperglycemia due to diabetes mellitus Status: Acute (5) Multiple falls Status: Acute (6) Requires supplemental oxygen Status: Acute (7) Respiratory failure with hypoxia Status: Acute (8) T10 vertebral fracture Status: Acute (9) UTI (urinary tract infection) Status: Acute Plan Plan of Care To get her up as tolerated and to SNF when medically stable. Comment Review of Relevant I have reviewed the following items irving (where applicable) has been applied. Labs Laboratory Tests Test 01/02/21 11:03 01/02/21 16:20 01/02/21 20:23 01/03/21 04:30 Glucose (Fingerstick) 207 mg/dL (70-99) 120 mg/dL (70-99) 147 mg/dL (70-99) White Blood Count 7.3 x10^3/uL (4.0-11.0) Red Blood Count 4.80 x10^6/uL (3.50-5.40) Hemoglobin 14.2 g/dL (12.0-15.5) Hematocrit 45.3 % (36.0-47.0) Mean Corpuscular Volume 94 fL (79-100) Mean Corpuscular Hemoglobin 30 pg (25-35) Mean Corpuscular Hemoglobin Concent 31 g/dL (31-37) Red Cell Distribution Width 15.8 % (11.5-14.5) Platelet Count 153 x10^3/uL (140-400) Neutrophils (%) (Auto) 69 % (31-73) Lymphocytes (%) (Auto) 15 % (24-48) Monocytes (%) (Auto) 13 % (0-9) Eosinophils (%) (Auto) 3 % (0-3) Basophils (%) (Auto) 1 % (0-3) Neutrophils # (Auto) 5.0 x10^3/uL (1.8-7.7) Lymphocytes # (Auto) 1.1 x10^3/uL (1.0-4.8) Monocytes # (Auto) 0.9 x10^3/uL (0.0-1.1) Eosinophils # (Auto) 0.2 x10^3/uL (0.0-0.7) Basophils # (Auto) 0.0 x10^3/uL (0.0-0.2) Sodium Level 147 mmol/L (136-145) Potassium Level 3.0 mmol/L (3.5-5.1) Chloride Level 98 mmol/L (98-107) Carbon Dioxide Level 42 mmol/L (21-32) Anion Gap 7 (6-14) Blood Urea Nitrogen 37 mg/dL (7-20) Creatinine 0.8 mg/dL (0.6-1.0) Estimated GFR (Cockcroft-Gault) 68.3 Glucose Level 41 mg/dL (70-99) Calcium Level 8.6 mg/dL (8.5-10.1) Magnesium Level 2.1 mg/dL (1.8-2.4) Test 01/03/21 08:18 01/03/21 11:59 01/03/21 17:01 01/03/21 20:43 Glucose (Fingerstick) 118 mg/dL (70-99) 198 mg/dL (70-99) 258 mg/dL (70-99) 432 mg/dL (70-99) Test 01/04/21 04:45 01/04/21 07:20 Sodium Level 142 mmol/L (136-145) Potassium Level 4.1 mmol/L (3.5-5.1) Chloride Level 93 mmol/L (98-107) Carbon Dioxide Level 40 mmol/L (21-32) Anion Gap 9 (6-14) Blood Urea Nitrogen 40 mg/dL (7-20) Creatinine 1.0 mg/dL (0.6-1.0) Estimated GFR (Cockcroft-Gault) 52.8 Glucose Level 393 mg/dL (70-99) Calcium Level 8.5 mg/dL (8.5-10.1) Magnesium Level 2.0 mg/dL (1.8-2.4) Glucose (Fingerstick) 362 mg/dL (70-99) Laboratory Tests Test 01/03/21 11:59 01/03/21 17:01 01/03/21 20:43 01/04/21 04:45 Glucose (Fingerstick) 198 mg/dL (70-99) 258 mg/dL (70-99) 432 mg/dL (70-99) Sodium Level 142 mmol/L (136-145) Potassium Level 4.1 mmol/L (3.5-5.1) Chloride Level 93 mmol/L (98-107) Carbon Dioxide Level 40 mmol/L (21-32) Anion Gap 9 (6-14) Blood Urea Nitrogen 40 mg/dL (7-20) Creatinine 1.0 mg/dL (0.6-1.0) Estimated GFR (Cockcroft-Gault) 52.8 Glucose Level 393 mg/dL (70-99) Calcium Level 8.5 mg/dL (8.5-10.1) Magnesium Level 2.0 mg/dL (1.8-2.4) Test 01/04/21 07:20 Glucose (Fingerstick) 362 mg/dL (70-99) Microbiology 12/29/20 Blood Culture - Final, Complete NO GROWTH AFTER 5 DAYS 12/27/20 Urine Culture - Final, Complete 12/27/20 Antimicrobic Susceptibility - Final, Complete Medications Current Medications Ceftriaxone Sodium (Rocephin) 2 gm 1X ONCE IVP Last administered on 12/27/20at 02:19; Start 12/27/20 at 02:00; Stop 12/27/20 at 02:01; Status DC Vancomycin HCl 250 ml @ 250 mls/hr 1X ONCE IV ; Start 12/27/20 at 01:45; Stop 12/27/20 at 02:44; Status UNV Vancomycin HCl (Vanco Per Pharmacy) 1 each PRN DAILY PRN MC SEE COMMENTS Last administered on 12/29/20at 09:15; Start 12/27/20 at 01:45; Stop 12/29/20 at 17:35; Status DC Fentanyl Citrate (Fentanyl 2ml Vial) 50 mcg 1X ONCE IVP Last administered on 12/27/20at 02:05; Start 12/27/20 at 02:00; Stop 12/27/20 at 02:01; Status DC Nitroglycerin (Nitro-Bid Oint) 1 inch 1X ONCE TP Last administered on 12/27/20at 02:06; Start 12/27/20 at 02:00; Stop 12/27/20 at 02:01; Status DC Vancomycin HCl 2 gm/Sodium Chloride 500 ml @ 250 mls/hr 1X ONCE IV Last administered on 12/27/20at 02:20; Start 12/27/20 at 02:30; Stop 12/27/20 at 04:29; Status DC Furosemide (Lasix) 20 mg 1X ONCE IVP Last administered on 12/27/20at 03:43; Start 12/27/20 at 03:30; Stop 12/27/20 at 03:31; Status DC Insulin Human Regular (HumuLIN R VIAL) 10 unit 1X ONCE IV Last administered on 12/27/20at 03:41; Start 12/27/20 at 03:30; Stop 12/27/20 at 03:31; Status DC Ondansetron HCl (Zofran) 4 mg PRN Q8HRS PRN IVP NAUSEA/VOMITING 1ST CHOICE; Start 12/27/20 at 03:15; Stop 12/28/20 at 03:14; Status DC Fentanyl Citrate (Fentanyl 2ml Vial) 50 mcg PRN Q24HRS PRN IVP SEVERE PAIN 7- 10; Start 12/27/20 at 03:15; Stop 12/27/20 at 03:25; Status DC Fentanyl Citrate (Fentanyl 2ml Vial) 50 mcg PRN Q2HRS PRN IVP SEVERE PAIN 7-10 Last administered on 12/27/20at 04:53; Start 12/27/20 at 03:30; Stop 12/28/20 at 03:29; Status DC Vancomycin HCl 1.75 gm/Sodium Chloride 500 ml @ 250 mls/hr Q24H IV Last administered on 12/29/20at 04:19; Start 12/28/20 at 04:00; Stop 12/29/20 at 10:35; Status DC Vancomycin HCl (Vancomycin Trough Level) 1 each 1X ONCE MC Last administered on 12/29/20at 03:30; Start 12/29/20 at 03:30; Stop 12/29/20 at 03:31; Status DC Influenza Virus Vaccine Quadrival (Flulaval Quad 3023-9945 Syringe) 0.5 ml ONCE ONCE VAX IM Last administered on 12/27/20at 17:54; Start 12/27/20 at 09:00; Stop 12/27/20 at 09:01; Status DC Lactobacillus Rhamnosus (Culturelle) 1 cap BID PO Last administered on 01/04/21at 08:35; Start 12/27/20 at 09:00 Heparin Sodium (Porcine) (Heparin Sodium) 4,000 unit 1X ONCE IV Last administered on 12/27/20at 09:13; Start 12/27/20 at 09:00; Stop 12/27/20 at 09:01; Status DC Heparin Sodium/ Dextrose 250 ml @ 10 mls/hr CONT PRN IV PER PROTOCOL Last administered on 12/27/20at 09:17; Start 12/27/20 at 09:00; Stop 12/29/20 at 21:19; Status DC Heparin Sodium (Porcine) (Heparin Sodium) 3,000 unit PRN Q6HRS PRN IV FOR UFH LEVEL LESS THAN 0.2; Start 12/27/20 at 09:00; Stop 12/29/20 at 21:19; Status DC Info (Anti-Coagulation Monitoring By Pharmacy) 1 each PRN DAILY PRN MC PER PROTOCOL Last administered on 12/27/20at 15:10; Start 12/27/20 at 09:00; Stop 12/29/20 at 21:19; Status DC Piperacillin Sod/ Tazobactam Sod (Zosyn Per Pharmacy) 1 each PRN DAILY PRN MC SEE COMMENTS; Start 12/27/20 at 09:15; Stop 12/30/20 at 09:13; Status DC Nystatin (Nystop) 1 amy BID TP Last administered on 01/03/21at 20:17; Start 12/27/20 at 10:00 Dextrose (Dextrose 50%-Water Syringe) 12.5 gm PRN Q15MIN PRN IV SEE COMMENTS; Start 12/27/20 at 09:30; Stop 12/27/20 at 09:26; Status DC Piperacillin Sod/ Tazobactam Sod 2.25 gm/Sodium Chloride 50 ml @ 100 mls/hr Q6HRS IV Last administered on 12/28/20at 07:28; Start 12/27/20 at 09:30; Stop 12/28/20 at 10:47; Status DC Insulin Human Lispro (HumaLOG) 0-7 UNITS TIDWMEALS SQ ; Start 12/27/20 at 12:00; Stop 12/27/20 at 09:32; Status DC Dextrose (Dextrose 50%-Water Syringe) 12.5 gm PRN Q15MIN PRN IV SEE COMMENTS; Start 12/27/20 at 09:30 Insulin Human Lispro (HumaLOG) 0-7 UNITS TIDWMEALS SQ Last administered on 01/03/21at 18:46; Start 12/27/20 at 09:30 Furosemide (Lasix) 40 mg 1X ONCE IVP Last administered on 12/27/20at 11:08; Start 12/27/20 at 10:30; Stop 12/27/20 at 10:34; Status DC Aspirin (Laura Aspirin) 325 mg 1X ONCE PO Last administered on 12/27/20at 12:52; Start 12/27/20 at 11:30; Stop 12/27/20 at 11:31; Status DC Aspirin (Ecotrin) 81 mg DAILYWBKFT PO Last administered on 01/04/21at 08:36; Start 12/28/20 at 08:00 Insulin Human Lispro (HumaLOG) 30 units 1X ONCE SQ Last administered on 12/27/20at 12:56; Start 12/27/20 at 12:45; Stop 12/27/20 at 12:51; Status DC Metoprolol Tartrate (Lopressor) 25 mg BID PO Last administered on 01/04/21at 08:35; Start 12/27/20 at 21:00 Hydralazine HCl (Apresoline Inj) 10 mg PRN Q4HRS PRN IVP ELEVATED BP, SEE COMMENTS; Start 12/27/20 at 16:30 Atorvastatin Calcium (Lipitor) 20 mg DAILY PO Last administered on 01/04/21at 08:35; Start 12/28/20 at 09:00 Lactic Acid (Lac-Hydrin) 1 amy BID TP Last administered on 01/04/21at 08:45; Start 12/27/20 at 21:00 Insulin Human Lispro (HumaLOG) 10 units 1X ONCE SQ Last administered on 12/28/20at 10:45; Start 12/28/20 at 10:45; Stop 12/28/20 at 10:47; Status DC Piperacillin Sod/ Tazobactam Sod 3.375 gm/Sodium Chloride 50 ml @ 100 mls/hr Q6HRS IV Last administered on 12/30/20at 05:47; Start 12/28/20 at 12:00; Stop 12/30/20 at 09:19; Status DC Furosemide (Lasix) 40 mg BID IVP Last administered on 12/29/20at 08:29; Start 12/28/20 at 12:30; Stop 12/29/20 at 12:16; Status DC Insulin Human Lispro (HumaLOG) 10 units 1X ONCE SQ Last administered on 12/28/20at 12:25; Start 12/28/20 at 12:30; Stop 12/28/20 at 12:31; Status DC Insulin Human Lispro (HumaLOG) 10 units 1X ONCE SQ Last administered on 12/28/20at 13:18; Start 12/28/20 at 13:15; Stop 12/28/20 at 13:16; Status DC Insulin Glargine (Lantus Syringe) 20 unit QHS SQ Last administered on 01/03/21at 21:08; Start 12/28/20 at 16:01 Insulin Human Lispro (HumaLOG) 5 units TIDWMEALS SQ Last administered on 01/04/21at 09:17; Start 12/28/20 at 17:00 Acetaminophen/ Hydrocodone Bitart (Lortab 5/325) 1 tab PRN Q4HRS PRN PO MOD TO SEVERE PAIN Last administered on 12/30/20at 08:39; Start 12/28/20 at 17:00; S top 12/30/20 at 11:01; Status DC Acetaminophen (Tylenol) 650 mg PRN Q6HRS PRN PO MILD PAIN / TEMP > 100.3'F; Start 12/28/20 at 17:00 Daptomycin 550 mg/ Sodium Chloride 50 ml @ 100 mls/hr Q24H IV Last administered on 12/29/20at 12:00; Start 12/29/20 at 12:00; Stop 12/30/20 at 09:13; Status DC Furosemide (Lasix) 40 mg DAILY IVP ; Start 12/30/20 at 09:00; Stop 12/29/20 at 12:18; Status DC Furosemide (Lasix) 40 mg BID94 IVP Last administered on 01/04/21at 08:40; Start 12/29/20 at 16:00 Metolazone (Zaroxolyn) 2.5 mg 1X ONCE PO Last administered on 12/29/20at 12:23; Start 12/29/20 at 12:30; Stop 12/29/20 at 12:31; Status DC Fentanyl Citrate (Fentanyl 2ml Vial) 25 mcg PRN Q3HRS PRN IVP SEVERE PAIN 7-10 Last administered on 01/03/21at 23:27; Start 12/29/20 at 21:15 Heparin Sodium (Porcine) (Heparin Sodium) 5,000 unit Q8HRS SQ Last administered on 01/04/21at 05:22; Start 12/29/20 at 22:00 Ceftriaxone Sodium (Rocephin) 2 gm Q24H IVP Last administered on 01/03/21at 09:12; Start 12/30/20 at 10:00; Stop 01/04/21 at 09:02; Status DC Doxycycline Hyclate (Vibra-Tab) 100 mg BID PO Last administered on 01/01/21at 09:43; Start 12/30/20 at 21:00; Stop 01/01/21 at 10:14; Status DC Furosemide (Lasix) 40 mg 1X ONCE IVP Last administered on 12/30/20at 10:56; Start 12/30/20 at 09:45; Stop 12/30/20 at 09:46; Status DC Acetaminophen/ Hydrocodone Bitart (Lortab 10/325) 1 tab PRN Q6HRS PRN PO MODERATE - SEVERE PAIN Last administered on 01/04/21at 08:34; Start 12/30/20 at 11:00 Tizanidine HCl (Zanaflex) 4 mg PRN Q8HRS PRN PO MUSCLE SPASMS Last administered on 01/03/21at 20:07; Start 12/30/20 at 11:15 Furosemide (Lasix) 40 mg 1X ONCE IVP Last administered on 12/31/20at 13:56; Start 12/31/20 at 11:30; Stop 12/31/20 at 11:31; Status DC Potassium Chloride (Klor-Con) 40 meq 1X ONCE PO Last administered on 12/31/20at 13:55; Start 12/31/20 at 11:30; Stop 12/31/20 at 11:31; Status DC Furosemide (Lasix) 80 mg 1X ONCE IVP Last administered on 12/31/20at 19:19; Start 12/31/20 at 17:30; Stop 12/31/20 at 17:31; Status DC Potassium Chloride (Klor-Con) 40 meq Q4H PO Last administered on 01/01/21at 14:07; Start 01/01/21 at 10:00; Stop 01/01/21 at 14:01; Status DC Potassium Chloride (Klor-Con) 40 meq Q4H PO Last administered on 01/03/21at 13:39; Start 01/03/21 at 09:30; Stop 01/03/21 at 13:31; Status DC Furosemide (Lasix) 80 mg 1X ONCE IVP Last administered on 01/03/21at 13:39; Start 01/03/21 at 12:30; Stop 01/03/21 at 12:31; Status DC Clopidogrel Bisulfate (Plavix) 75 mg DAILYWBKFT PO Last administered on 01/04/21at 08:36; Start 01/03/21 at 15:00 Active Scripts Active Reported Furosemide 20 Mg Tablet 1 Tab PO DAILY Lisinopril-Hctz 20-25 Mg Tab (Lisinopril/Hydrochlorothiazide) 1 Each Tablet 1 Tab PO DAILY Vitals/I & O Vital Sign - Last 24 Hours 01/03/21 01/03/21 01/03/21 01/03/21 09:32 11:00 11:57 13:48 Temp 98.4 98.4 Pulse 78 Resp 16 B/P (MAP) 156/68 (97) Pulse Ox 92 90 92 92 O2 Delivery Nasal Cannula Nasal Cannula Nasal Cannula Nasal Cannula O2 Flow Rate 2.0 2.0 2.0 2.0 01/03/21 01/03/21 01/03/21 01/03/21 15:00 17:25 19:34 20:00 Temp 97.9 98.0 97.9 98.0 Pulse 86 82 Resp 24 20 B/P (MAP) 155/71 (99) 179/79 (112) Pulse Ox 93 92 94 O2 Delivery Nasal Cannula Nasal Cannula Nasal Cannula Nasal Cannula O2 Flow Rate 2.0 2.0 2.0 2.0 01/03/21 01/03/21 01/03/21 01/03/21 20:06 20:07 20:37 22:54 Temp 98.2 98.2 Pulse 82 70 Resp 20 20 18 B/P (MAP) 179/79 126/58 (80) Pulse Ox 94 94 100 O2 Delivery Nasal Cannula Nasal Cannula Nasal Cannula O2 Flow Rate 2.0 2.0 2.0 01/03/21 01/03/21 01/04/21 01/04/21 23:27 23:57 02:49 03:06 Temp 97.8 97.8 Pulse 73 72 Resp 20 20 16 B/P (MAP) 202/79 (120) 143/65 (91) Pulse Ox 94 O2 Delivery Nasal Cannula Nasal Cannula Nasal Cannula O2 Flow Rate 2.0 2.0 2.0 01/04/21 01/04/21 07:17 08:35 Temp 97.5 97.5 Pulse 74 74 Resp 18 B/P (MAP) 172/74 (106) 172/74 Pulse Ox 95 O2 Delivery Nasal Cannula O2 Flow Rate 2.0 Intake and Output 01/03/21 01/03/21 01/04/21 15:00 23:00 07:00 Intake Total 417 ml 420 ml 0 ml Output Total 2000 ml 1000 ml Balance 417 ml -1580 ml -1000 ml Justifications for Admission Other Justification Symptomatic cholelithiasis SANGEETA MILLER MD Jan 04, 2021 09:22
[2021-01-04] MEDS ORDERED: HYDROcodone/APAP 10/325 1 TAB TABLET PO PRN (09:30)
[2021-01-04 11:30] VITALS: BP 158/65
--- NOTE | 2021-01-04 11:49 | PDOC ---
Renal-Progress Notes Subjective Notes Notes NO NEW COMPLAINTS History of Present Illness Hx of present illness OVERALL BETTER BUT STILL HAS WEAKNESS Vitals Vitals Vital Signs Date Time Temp Pulse Resp B/P (MAP) Pulse Ox O2 Delivery O2 Flow Rate FiO2 01/04/21 08:35 74 172/74 01/04/21 07:17 97.5 18 95 Nasal Cannula 2.0 97.5 Weight Weight [ ] I.O. Intake and Output Intake and Output 01/04/21 07:00 Intake Total 837 ml Output Total 3000 ml Balance -2163 ml Intake Oral 837 ml Output Urine Total 3000 ml # Bowel Movements 4 Labs Labs Laboratory Tests Test 01/03/21 11:59 01/03/21 17:01 01/03/21 20:43 01/04/21 04:45 Glucose (Fingerstick) 198 mg/dL (70-99) 258 mg/dL (70-99) 432 mg/dL (70-99) Sodium Level 142 mmol/L (136-145) Potassium Level 4.1 mmol/L (3.5-5.1) Chloride Level 93 mmol/L (98-107) Carbon Dioxide Level 40 mmol/L (21-32) Anion Gap 9 (6-14) Blood Urea Nitrogen 40 mg/dL (7-20) Creatinine 1.0 mg/dL (0.6-1.0) Estimated GFR (Cockcroft-Gault) 52.8 Glucose Level 393 mg/dL (70-99) Calcium Level 8.5 mg/dL (8.5-10.1) Magnesium Level 2.0 mg/dL (1.8-2.4) Test 01/04/21 07:20 01/04/21 11:27 Glucose (Fingerstick) 362 mg/dL (70-99) 396 mg/dL (70-99) Micro Micro Microbiology 12/29/20 Blood Culture - Final, Complete NO GROWTH AFTER 5 DAYS 12/27/20 Urine Culture - Final, Complete 12/27/20 Antimicrobic Susceptibility - Final, Complete Review of Systems Constitutional: yes: alert, oriented Ears/Nose/Throat: Yes: no symptom reported Eyes: Yes: no symptom reported Pulmonary: Yes dyspnea Cardiovascular: Yes no symptom reported Gastrointestional: Yes: no symptom reported Musculoskeletal: Yes: no symptom reported Skin: Yes no symptom reported Psychiatric/Neurological: Yes: no symptom reported Endocrine: Yes: no symptom reported Physical Exam General Appearance: no apparent distress Respiratory: bilateral CTA Heart: S1S2 Abdomen: soft, bowel sounds present Genitourinary: bladder flat Extremities: pulses present Neurology: alert, oriented, follow commands Musculoskeletal: Osteoarthritis Assessment Assessment IMP TRICIA-CR DOWN TO 1.0 HYPOKALEMIA-CORRECTED MILD HYPERNATREMIA-RESOLVED CHF-PROB DIASTOLIC ACUTE ON CHRONIC HYPERGLYCEMIA-NO KETOTIC-IMPROVED ELEVATED TROPONIN LEVEL MULTIPLE FALL HX T 10 FX LE EDEMA POSSIBLE BILATERAL PRETIBIAL AREA CELLULITIS. BACTEREMIA G + E COLI UTI PLAN CHANGE LASIX TO PO REPLACE K NEEDED WILL FOLLOW CARLTON BYRNE MD Jan 04, 2021 11:49
[2021-01-04] MEDS ORDERED: INSULIN LISPRO 300 UNITS/3 ML VIAL. SQ SCH (12:00)
--- NOTE | 2021-01-04 13:04 | NUR ---
SS following up with discharge planning. SS reviewed pt chart and discussed with pt RN. Pt is currently requiring oxygen at two liters nasal canula. COVID19 negative. PT/OT recommended retirement unit. Pt accepted at [facility], ; fax [phone], pending insurance authorization. Clinical updates phoned and faxed to [facility]. SS will continue to follow for discharge planning. Addendum: 01/04/21 at 1610 by JOHNNY MICHAEL SS Insurance authorization received for [facility]. Discharge orders received and phoned and faxed to [facility]. Pt will discharge today and go to [facility] 1630 via [employer]. Transportation arranged by [facility]. Pt, pt's son, Alli, and pt's RN notified. Packet on chart.
[2021-01-04 15:11] VITALS: BP 178/79
[2021-01-04] MEDS ORDERED: ASPI-886 PO (15:44)
[2021-01-04] MEDS ORDERED: INSU100V35 SQ (15:44)
[2021-01-04] MEDS ORDERED: TIZA-75 PO (15:44)
[2021-01-04] MEDS ORDERED: INSU100V8 SQ (15:44)
[2021-01-04] MEDS ORDERED: ATOR20TA58 PO (15:44)
[2021-01-04] MEDS ORDERED: METO25TA4 PO (15:44)
[2021-01-04] MEDS ORDERED: CLOP75TA PO (15:44)
[2021-01-04] MEDS ORDERED: FURO40TA4 PO (15:51)
--- NOTE | 2021-01-04 15:59 | SNU/HH DC ---
DISCHARGE ORDERS DISCHARGE INFORMATION: DISCHARGE DATE: Jan 04, 2021 FINAL DIAGNOSIS Problems Medical Problems: (1) Congestive heart failure Status: Acute (2) Elevated troponin level Status: Acute (3) Generalized weakness Status: Acute (4) Hyperglycemia due to diabetes mellitus Status: Acute (5) Multiple falls Status: Acute (6) Requires supplemental oxygen Status: Acute (7) Respiratory failure with hypoxia Status: Acute (8) T10 vertebral fracture Status: Acute (9) UTI (urinary tract infection) Status: Acute CONDITION ON DISCHARGE: Stable CODE STATUS: Code Status: Full SNF: SNF STAY <30 DAYS: Yes POST DISCHARGE ORDERS: ACTIVITY ORDERS: Activity as tolerated WEIGHT BEARING STATUS: As tolerated DIET AFTER DISCHARGE: Cardiac WOUND/INCISION CARE: Ice to area for comfort CHECKS AFTER DISCHARGE: CHECKS AFTER DISCHARGE: Check blood press - daily, Check blood sugar, ac/hs TREATMENT/EQUIPMENT ORDERS: ADAPTIVE EQUIPMENT NEEDED: None, Walker RESPIRATORY EQUIPMENT NEEDED: Oxygen Physical Therapy For: Evalulation/Treatment Occupational Therapy For: Evaluation/Treatment DISCHARGE MEDICATIONS: Home Meds Active Scripts Furosemide (FUROSEMIDE) 40 Mg Tablet, 40 MG PO BID94 for htn for 30 Days, #60 TAB Prov:SYEDA RICHARDSON MD 01/04/21 Aspirin (ASPIRIN EC) 81 Mg Tablet.dr, 81 MG PO DAILYWBKFT for cad for 30 Days, #30 TAB.SR Prov:SYEDA RICHARDSON MD 01/04/21 Insulin Lispro (Admelog) 100 Unit/1 Ml Vial, 10 UNITS SQ TIDWMEALS for dm2 for 30 Days, #30 ML Prov:SYEDA RICHARDSON MD 01/04/21 Insulin Glargine,Hum.rec.anlog (LANTUS) 100 Unit/1 Ml Vial, 30 UNIT SQ QHS for insulin for 30 Days, #10 ML Prov:SYEDA RICHARDSON MD 01/04/21 Metoprolol Tartrate (METOPROLOL TARTRATE) 25 Mg Tablet, 25 MG PO BID for htn for 30 Days, #60 TAB Prov:SYEDA RICHARDSON MD 01/04/21 Atorvastatin Calcium (ATORVASTATIN CALCIUM) 20 Mg Tablet, 20 MG PO DAILY for cad for 30 Days, #30 TAB Prov:SYEDA RICHARDSON MD 01/04/21 Clopidogrel Bisulfate (CLOPIDOGREL) 75 Mg Tablet, 75 MG PO DAILYWBKFT for cad for 30 Days, #30 TAB Prov:SYEDA RICHARDSON MD 01/04/21 Tizanidine Hcl (TIZANIDINE HCL) 4 Mg Tablet, 4 MG PO PRN Q8HRS PRN for MUSCLE SPASMS for 10 Days, #30 TAB Prov:SYEDA RICHARDSON MD 01/04/21 Discontinued Reported Medications Furosemide (FUROSEMIDE) 20 Mg Tablet, 1 TAB PO DAILY for HTN 01/02/21 Lisinopril/Hydrochlorothiazide (LISINOPRIL-HCTZ 20-25 MG TAB) 1 Each Tablet, 1 TAB PO DAILY for HTN 01/02/21 SYEDA RICHARDSON MD Jan 04, 2021 15:59
[2021-01-04] MEDS ORDERED: FUROSEMIDE 40 MG TABLET. PO SCH (16:00)
--- NOTE | 2021-01-04 16:05 | CONS ---
DATE OF CONSULTATION: 12/28/2020 PODIATRIC CONSULTATION REASON FOR CONSULTATION: Evaluate elongated mycotic nails of diabetic. REVIEW OF RECORD: This is an elderly female, presented to ER at night to the emergency medical services. She has been falling a lot, especially in the last month. She was hypoxic on admission. PAST MEDICAL HISTORY: Noncompliance, hypertension, diabetes, chronic renal insufficiency, , hysterectomy, some type of ____ removed. ALLERGIES: None. FAMILY HISTORY: Diabetes. SOCIAL HISTORY: Does not drink, smoke or take drugs. MEDICATIONS: Reviewed. PHYSICAL EXAMINATION: DERMAL: The patient has elongated mycotic nails of all digits of longstanding duration. Decreased turgor. Absence of hair growth. VASCULAR: Pedal pulses are diminished. Absent posterior tibial, dorsalis pedis. NEUROLOGIC: The patient relates numbness, burning, tingling. MUSCULOSKELETAL: Noncontributory to her current problem. ASSESSMENT: 1. Diabetic with a history of peripheral vascular disease and neuropathy. 2. Clinical evidence of onychomycosis, onychocryptosis, onycholysis of moderate to severe presentation and chronic in nature. PLAN: Debridement of all mycotic nails was done using double action nail forceps and rotary drill. Recommendation more frequent maintenance care of her feet would be strong recommendation for this lady on an outpatient basis. NISHA/ASHELY/ROB DR: NISHA/kassie TID: [id number]
--- NOTE | 2021-01-04 19:23 | NUR ---
Discharge Note: JOSAFAT [id number] [facility] Discharge instructions and discharge home medications reviewed Belinda MCINTYRE with [facility] and a copy given. All questions have been answered and understanding verbalized.
[2021-01-04] MEDS ORDERED: INSULIN GLARGINE SYRINGE. SQ SCH (21:00)
== END 2021-01-04 19:25 | DRG 551 ==
LOC: ER 23:44 → 6 SOUTH 12-27 00:24
PROVIDERS: ADMIT Student in an Organized Health Care Education/Training Program; ATTEND Student in an Organized Health Care Education/Training Program
DX: S22.079A Unspecified fracture of T9-T10 vertebra, initial encounter for closed fracture (principal); J96.01 Acute respiratory failure with hypoxia; N17.0 Acute kidney failure with tubular necrosis; I50.43 Acute on chronic combined systolic (congestive) and diastolic (congestive) heart failure; I21.4 Non-ST elevation (NSTEMI) myocardial infarction; I13.0 Hypertensive heart and chronic kidney disease with heart failure and stage 1 through stage 4 chronic kidney disease, or unspecified chronic kidney disease; N39.0 Urinary tract infection, site not specified; E87.0 Hyperosmolality and hypernatremia; R78.81 Bacteremia; B35.1 Tinea unguium; B96.20 Unspecified Escherichia coli [E. coli] as the cause of diseases classified elsewhere; E11.22 Type 2 diabetes mellitus with diabetic chronic kidney disease; E11.42 Type 2 diabetes mellitus with diabetic polyneuropathy; E11.51 Type 2 diabetes mellitus with diabetic peripheral angiopathy without gangrene; E11.65 Type 2 diabetes mellitus with hyperglycemia; E66.01 Morbid (severe) obesity due to excess calories; E78.5 Hyperlipidemia, unspecified; E87.6 Hypokalemia; I08.1 Rheumatic disorders of both mitral and tricuspid valves; I27.29 Other secondary pulmonary hypertension; I87.2 Venous insufficiency (chronic) (peripheral); I87.8 Other specified disorders of veins; L60.0 Ingrowing nail; L60.1 Onycholysis; N18.9 Chronic kidney disease, unspecified; R29.6 Repeated falls; R32 Unspecified urinary incontinence; R62.7 Adult failure to thrive; Z20.822 Contact with and (suspected) exposure to COVID-19; Z82.49 Family history of ischemic heart disease and other diseases of the circulatory system; Z83.3 Family history of diabetes mellitus; Z90.710 Acquired absence of both cervix and uterus; Z91.19 Patient's noncompliance with other medical treatment and regimen; Z91.81 History of falling; M19.90 Unspecified osteoarthritis, unspecified site; W18.39XA Other fall on same level, initial encounter; Y93.89 Activity, other specified; Y92.89 Other specified places as the place of occurrence of the external cause; Y99.8 Other external cause status
CPT/HCPCS: 36415; 70450; 71045; 72125; 72128; 72131; 72146; 80048; 80053; 80061; 80202; 81001; 82550; 82962; 83036; 83605; 83735; 83880; 84100; 84484; 85025; 85520; 87040; 87077; 87086; 87186; 87205; 87426; 87804; 90471; 90686; 93005; 93306; 96365; 96375; J0696; J0878; J1644; J1815; J1940; J2543; J3010; J3370; J7040; U0003; U0005; 92526-GN; 92610-GN; 97110-GP; 97530-GO; 97530-GP; 97535-GO; 99285-25; G0378

== ENCOUNTER 2021-02-11 13:42 | Inpatient (IN) | payer OTHER ==
[~2021-02-11 13:42] MED LIST changes: +ASPI-886 PO; +ATOR20TA58 PO; +CLOP75TA PO; +FURO20TA3 PO; +FURO40TA4 PO; +INSU100V35 SQ; +INSU100V8 SQ; +LIDO700A21 TD; +LISI1TAB39 PO; +METO25TA4 PO; +TIZA-75 PO
[2021-02-11] MEDS ORDERED: PROCHLORPERAZINE 10 MG/2 ML VIAL. IVP PRN (15:00)
[2021-02-11] MEDS ORDERED: ACETAMINOPHEN 325 MG TABLET. PO PRN (15:00)
[2021-02-11] MEDS ORDERED: ACETAMINOPHEN 650 MG SUPP.RECT. PR PRN (15:00)
[2021-02-11] MEDS ORDERED: MORPHINE SULFATE 20 MG/ML CONC SOLUTION. PO/SL PRN ×2 (15:00)
[2021-02-11] MEDS ORDERED: BISACODYL 10 MG SUPP.RECT. PR PRN (15:00)
[2021-02-11] MEDS ORDERED: ACETAMINOPHEN 650 MG/20.3 ML SOLUTION. PEG PRN (15:00)
[2021-02-11] MEDS ORDERED: HALOPERIDOL LACTATE 5 MG/ML VIAL. IVP PRN ×3 (15:00)
[2021-02-11] MEDS ORDERED: MORPHINE SULFATE 4 MG/ML INJ. IVP PRN (15:00)
[2021-02-11] MEDS ORDERED: HYDROmorphone 2 MG/ML INJ. IVP PRN ×2 (15:00)
[2021-02-11] MEDS ORDERED: ONDANSETRON PF 4 MG/2 ML VIAL. IVP PRN (15:00)
[2021-02-11] MEDS ORDERED: SODIUM PHOSPHATES 19/7GM 133 ML ENEMA. PR PRN (15:00)
[2021-02-11] MEDS ORDERED: fentaNYL PF VIAL 100 MCG/2 ML VIAL IVP PRN ×3 (15:00)
[2021-02-11] MEDS ORDERED: MORPHINE SULFATE 2 MG/ML INJ. IVP PRN (15:00)
[2021-02-11] MEDS ORDERED: SCOPOLAMINE 1.5MG PATCH. TD PRN (15:00)
[2021-02-11] MEDS ORDERED: 0.9 % SODIUM CHLORIDE 10 ML DISP.SYRIN. IV PRN (15:00)
[2021-02-11 19:37] VITALS: BP 105/55
--- NOTE | 2021-02-11 22:21 | NUR ---
Patient 02/11/21 at 2140. 2 RNs pronounced patient's . Jim RN and Daniel RN. Spoke to Genoveva Costa from [facility], [phone], and notified her of patient's passing. Spoke to Butch Rondon, Son, , and informed of patient passing. Butch explains family has chosen [facility], . Butch explains he will notify his brother, Alli Rondon, , of patients passing as well. Reported patient's passing to Dr Cotter who is doctor electronic page makeup system operator for [facility]. Genoveva Costa reports she will notify Dr Novoa of patient's passing. Genoveva Costa of [facility], explains no need to call [facility] as patient is hospice patient.
== END 2021-02-11 21:40 | DRG 871 ==
LOC: 6 SOUTH 13:42
PROVIDERS: ADMIT Internal Medicine; ATTEND Internal Medicine
DX: A41.9 Sepsis, unspecified organism (principal); E11.10 Type 2 diabetes mellitus with ketoacidosis without coma; J96.01 Acute respiratory failure with hypoxia; I21.A1 Myocardial infarction type 2; R65.21 Severe sepsis with septic shock; K92.2 Gastrointestinal hemorrhage, unspecified; Z79.4 Long term (current) use of insulin; I48.0 Paroxysmal atrial fibrillation; Z79.01 Long term (current) use of anticoagulants; I16.0 Hypertensive urgency
CPT/HCPCS: J1630; G0378